=== PATIENT | female | born 1960 | race Caucasian/White ===

== ENCOUNTER → 2020-04-26 09:36 | Outpatient (BNVA) | payer OTHER, SELFPAY | PROVIDERS: PCP Internal Medicine; Referring Provider Internal Medicine; Visit Provider Internal Medicine Endocrinology, Diabetes & Metabolism | DX: Z76.89 Persons encountering health services in other specified circumstances (principal) ==

== ENCOUNTER 2020-04-27 16:15 | Outpatient (REF) | payer OTHER, SELFPAY ==
--- NOTE | 2020-04-27 16:09 | MM_ITS ---
EXAMINATION: MM SCREENING DIGITAL BREAST TOMOSYNTHESIS, BILATERAL CLINICAL INFORMATION: Screening. Asymptomatic. The lifetime risk of breast cancer based on the Tyrer-Cuzick Model is 8%. COMPARISON: Mammography: 03/18/2019, 03/06/2018, 02/07/2017 TECHNIQUE: Digital breast tomosynthesis is performed in both the craniocaudal and mediolateral oblique views along with computer-aided detection (CAD). Synthesized 2D images are generated from the tomosynthesis. FINDINGS: There are scattered areas of fibroglandular density (ACR BI-RADS breast composition Category b). There are no significant masses, abnormal calcifications, or other abnormalities. No significant change from prior study. The axilla and skin contours are unremarkable. MM/MM tomosynthesis screening BI IMPRESSION: No mammographic evidence of malignancy. ASSESSMENT: BI-RADS 1: Negative RECOMMENDATION: Routine annual mammography screening. This patient's information was entered into a reminder system with a target due date for their next mammogram.
== END 2020-04-27 16:16 ==
LOC: HO.MAMMO 16:15
PROVIDERS: PCP Internal Medicine; Visit Provider Internal Medicine
DX: Z12.31 Encounter for screening mammogram for malignant neoplasm of breast (principal)
CPT/HCPCS: 77063; 77067

== ENCOUNTER 2020-05-25 07:39 | Outpatient (REF) | payer OTHER, SELFPAY ==
[2020-05-25 08:48] LABS: Alanine Aminotransferase 22 U/L (0-31); Albumin Level 4.2 g/dL (3.5-5.0); Alkaline Phosphatase 55 U/L (39-117); Anion Gap 11 (12-20); Aspartate Amino Transferase 22 U/L (5-31); Bilirubin Total 0.5 mg/dL (0.0-1.0); Blood Urea Nitrogen 13 mg/dL (9-16); Calcium 9.4 mg/dL (8.4-10.2); Carbon Dioxide 29 mmol/L (22-29); Chloride 106 mmol/L (96-108); Cholesterol 203 mg/dL; Estimated Glomerular Filt Rate > 60; Glucose Fasting 99 mg/dL (60-99); HDL Cholesterol 62 mg/dL; LDL Cholesterol Calculated 119 mg/dl; Potassium 4.2 mmol/L (3.3-5.1); Sodium 142 mmol/L (135-145); Total Protein 6.7 g/dL (6.5-8.0); Triglycerides 112 mg/dL
[2020-05-25 09:10] LABS: TSH reflex Free T4 1.97 uIU/mL (0.32-4.0)
[2020-05-29 15:57] LABS: Vitamin D 25-OH, D2 <4 ng/mL; Vitamin D 25-OH, D3 41 ng/mL; Vitamin D 25-OH, Total 41 ng/mL (30-100)
== END 2020-05-25 07:40 | disposition home or self-care (01) ==
LOC: HO.LAB 07:39
PROVIDERS: PCP Internal Medicine; Visit Provider Internal Medicine
DX: I10 Essential (primary) hypertension (principal); E78.5 Hyperlipidemia, unspecified; E55.9 Vitamin D deficiency, unspecified; Z83.49 Family history of other endocrine, nutritional and metabolic diseases
CPT/HCPCS: 36415; 80053; 80061; 82306; 84443

== ENCOUNTER → 2020-05-31 13:48 | Outpatient (BNVA) | payer OTHER, SELFPAY | PROVIDERS: PCP Internal Medicine; Visit Provider Internal Medicine | DX: M81.0 Age-related osteoporosis without current pathological fracture (principal) | CPT/HCPCS: 96402 ==

== ENCOUNTER 2020-06-14 08:12 | Outpatient (REF) | payer OTHER, SELFPAY ==
[2020-06-14 09:48] LABS: Free T4 (Free Thyroxine) 1.01 ng/dL (0.71-1.85); Thyroid Stimulating Hormone 1.56 uIU/mL (0.32-4.0); Vitamin D 25-OH Total 42.6 ng/mL (>30)
[2020-06-20 15:32] LABS: N-Telopeptide 19 (see note); NTXCreaRU 250 mg/dL (20-275)
== END 2020-06-14 08:13 | disposition home or self-care (01) ==
LOC: HO.LAB 08:12
PROVIDERS: PCP Internal Medicine; Visit Provider Internal Medicine Endocrinology, Diabetes & Metabolism
DX: M81.0 Age-related osteoporosis without current pathological fracture (principal)
CPT/HCPCS: 36415; 82306; 82523; 84439; 84443

== ENCOUNTER 2020-11-01 11:36 | Outpatient (REF) | payer OTHER, SELFPAY ==
[2020-11-01 13:36] LABS: Albumin Level 4.7 g/dL (3.5-5.0); Calcium 10.2 mg/dL (8.4-10.2)
[2020-11-01 14:03] LABS: Vitamin D 25-OH Total 50.1 ng/mL (>30)
[2020-11-07 21:51] LABS: N-Telopeptide 21 (see note); NTXCreaRU 24 mg/dL (20-275)
== END 2020-11-01 11:37 | disposition home or self-care (01) ==
LOC: HO.10HDL 11:36
PROVIDERS: PCP Internal Medicine; Visit Provider Internal Medicine Endocrinology, Diabetes & Metabolism
DX: M81.0 Age-related osteoporosis without current pathological fracture (principal); E55.9 Vitamin D deficiency, unspecified
CPT/HCPCS: 36415; 82040; 82306; 82310; 82523; 99212

== ENCOUNTER → 2020-11-29 11:03 | Outpatient (BNVA) | payer OTHER, SELFPAY | PROVIDERS: PCP Internal Medicine; Visit Provider Internal Medicine | DX: M81.0 Age-related osteoporosis without current pathological fracture (principal) | CPT/HCPCS: 96372 ==

== ENCOUNTER 2020-12-13 11:32 | Outpatient (REF) | payer OTHER, SELFPAY ==
[2020-12-13 14:27] LABS: Estimated Glomerular Filt Rate > 60
[2020-12-14 16:02] LABS: Calcium (PTHI) 10.1 mg/dL (8.6-10.4); PTHI 22 pg/mL (14-64)
== END 2020-12-13 11:33 | disposition home or self-care (01) ==
LOC: HO.10HDL 11:32
PROVIDERS: Visit Provider Internal Medicine
DX: M81.0 Age-related osteoporosis without current pathological fracture (principal)
CPT/HCPCS: 36415; 82565; 83970

== ENCOUNTER 2021-02-14 09:39 | Outpatient (REF) | payer OTHER, SELFPAY ==
[2021-02-14 09:49] LABS: MANUAL DIFF FLAG NO
[2021-02-14 10:06] LABS: Basophils Percent Auto 0.4 % (0-2); Eosinophils Absolute Auto 0.2 X10*3/uL (0.0-0.4); Eosinophils Percent Auto 2.8 % (0-4); Hematocrit 40.9 % (37.0-47.0); Hemoglobin 13.1 g/dl (12.0-16.0); Imm Gran Abs Auto 0.02 X10*3/uL (0.00-0.03); Imm Gran Pct Auto 0.4 % (0.0-0.4); Lymphocytes Absolute Auto 2.2 X10*3/uL (1.2-4.9); Lymphocytes Percent Auto 41.2 % (20-40); Mean Corpuscular Hemoglobin 30.1 pg (27.0-33.0); Mean Platelet Volume 9.1 fL (9.4-12.3); Monocytes Absolute Auto 0.5 X10*3/uL (0.1-1.2); Monocytes Percent Auto 8.5 % (2-11); Neutrophils Absolute Auto 2.47 x10*3/uL (2.0-8.3); Neutrophils Percent Auto 46.7 % (45-73); Platelet Count 254 X10*3/uL (160-400); Red Blood Count 4.35 X10*6/uL (4.20-5.50); Red Cell Distribution Width 13.2 % (11.0-16.0); White Blood Count 5.3 X10*3/uL (4.8-10.8)
[2021-02-14 11:03] LABS: Alanine Aminotransferase 23 U/L (0-31); Albumin Level 4.6 g/dL (3.5-5.0); Alkaline Phosphatase 51 U/L (39-117); Anion Gap 10 (12-20); Aspartate Amino Transferase 22 U/L (5-31); Bilirubin Total 0.5 mg/dL (0.0-1.0); Blood Urea Nitrogen 10 mg/dL (9-16); Calcium 9.9 mg/dL (8.4-10.2); Carbon Dioxide 32 mmol/L (22-29); Chloride 102 mmol/L (96-108); Cholesterol 197 mg/dL; Estimated Glomerular Filt Rate > 60; Glucose Fasting 102 mg/dL (60-99); HDL Cholesterol 64 mg/dL; LDL Cholesterol Calculated 103 mg/dl; Potassium 4.7 mmol/L (3.3-5.1); Sodium 139 mmol/L (135-145); Total Protein 7.4 g/dL (6.5-8.0); Triglycerides 154 mg/dL
[2021-02-21 15:37] LABS: Vitamin D 25-OH, D2 <4 ng/mL; Vitamin D 25-OH, D3 51 ng/mL; Vitamin D 25-OH, Total 51 ng/mL (30-100)
== END 2021-02-14 09:40 | disposition home or self-care (01) ==
LOC: HO.LAB 09:39
PROVIDERS: PCP Internal Medicine; Visit Provider Internal Medicine
DX: E55.9 Vitamin D deficiency, unspecified (principal); E78.5 Hyperlipidemia, unspecified; I10 Essential (primary) hypertension; D64.9 Anemia, unspecified
CPT/HCPCS: 36415; 80053; 80061; 82306; 85025

== ENCOUNTER 2021-05-01 08:51 | Outpatient (REF) | payer OTHER, SELFPAY ==
--- NOTE | ~2021-05-01 | MM_ITS ---
EXAMINATION: MM SCREENING DIGITAL BREAST TOMOSYNTHESIS, BILATERAL CLINICAL INFORMATION: Screening. Asymptomatic. The lifetime risk of breast cancer based on the Tyrer-Cuzick Model is 4%. COMPARISON: Mammography: 04/27/2020, 03/18/2019, 03/06/2018 TECHNIQUE: Digital breast tomosynthesis is performed in both the craniocaudal and mediolateral oblique views along with computer-aided detection (CAD). Synthesized 2D images are generated from the tomosynthesis. Additional left MLO view is provided. FINDINGS: There are scattered areas of fibroglandular density (ACR BI-RADS breast composition Category b). There are no significant masses, abnormal calcifications, or other abnormalities. MM/MM tomosynthesis screening BI IMPRESSION: No mammographic evidence of malignancy. ASSESSMENT: BI-RADS 1: Negative RECOMMENDATION: Routine annual mammography screening. This patient's information was entered into a reminder system with a target due date for their next mammogram.
== END 2021-05-01 08:52 | disposition home or self-care (01) ==
LOC: HO.MAMMO 08:51
PROVIDERS: PCP Internal Medicine; Visit Provider Internal Medicine
DX: Z12.31 Encounter for screening mammogram for malignant neoplasm of breast (principal)
CPT/HCPCS: 77063; 77067

== ENCOUNTER 2021-05-25 09:46 | Outpatient (REF) | payer OTHER, SELFPAY ==
[2021-05-26 18:32] LABS: CT PCR NOT DETECTED (Not Detect.); NG PCR NOT DETECTED (Not Detect.)
[2021-05-30 09:32] LABS: HPV mRNA E6/E7 rflx Not Detected (Not Detected)
== END 2021-05-25 09:47 | disposition home or self-care (01) ==
LOC: HO.LAB 09:46
PROVIDERS: PCP Internal Medicine; Visit Provider Advanced Practice Midwife
DX: Z01.419 Encounter for gynecological examination (general) (routine) without abnormal findings (principal); Z20.2 Contact with and (suspected) exposure to infections with a predominantly sexual mode of transmission
CPT/HCPCS: 87491; 87591; 87624; 88142

== ENCOUNTER → 2021-06-13 08:44 | Outpatient (BNVA) | payer OTHER, SELFPAY | PROVIDERS: PCP Internal Medicine; Visit Provider Internal Medicine Endocrinology, Diabetes & Metabolism | DX: M81.0 Age-related osteoporosis without current pathological fracture (principal); E55.9 Vitamin D deficiency, unspecified; I10 Essential (primary) hypertension; E78.5 Hyperlipidemia, unspecified; Z79.82 Long term (current) use of aspirin; Z79.899 Other long term (current) drug therapy | CPT/HCPCS: 99212 ==

== ENCOUNTER → 2021-12-26 10:38 | Outpatient (BNVA) | payer OTHER, SELFPAY | PROVIDERS: PCP Internal Medicine; Visit Provider Internal Medicine Endocrinology, Diabetes & Metabolism | DX: M81.0 Age-related osteoporosis without current pathological fracture (principal); Z79.899 Other long term (current) drug therapy | CPT/HCPCS: 99212 ==

== ENCOUNTER 2022-02-25 07:35 | Outpatient (REF) | payer OTHER, SELFPAY ==
[2022-02-25 09:38] LABS: Alanine Aminotransferase 30 U/L (0-31); Albumin Level 4.5 g/dL (3.5-5.0); Alkaline Phosphatase 98 U/L (39-117); Anion Gap 14 (12-20); Aspartate Amino Transferase 23 U/L (5-31); Bilirubin Total 0.3 mg/dL (0.0-1.0); Blood Urea Nitrogen 11 mg/dL (9-16); Calcium 9.6 mg/dL (8.4-10.2); Carbon Dioxide 26 mmol/L (22-29); Chloride 104 mmol/L (96-108); Cholesterol 167 mg/dL; Estimated Glomerular Filt Rate > 60; Glucose Fasting 104 mg/dL (60-99); HDL Cholesterol 56 mg/dL; LDL Cholesterol Calculated 89 mg/dl; Potassium 4.2 mmol/L (3.3-5.1); Sodium 140 mmol/L (135-145); Total Protein 7.2 g/dL (6.5-8.0); Triglycerides 110 mg/dL; Vitamin D 25-OH Total 53.3 ng/mL (>30)
[2022-03-03 13:52] LABS: N-Telopeptide 39 (see note); NTXCreaRU 369 mg/dL (20-275)
== END 2022-02-25 07:36 | disposition home or self-care (01) ==
LOC: HO.LAB 07:35
PROVIDERS: Absent Provider Internal Medicine Endocrinology, Diabetes & Metabolism; PCP Internal Medicine; Visit Provider Internal Medicine
DX: M81.0 Age-related osteoporosis without current pathological fracture (principal); E55.9 Vitamin D deficiency, unspecified; E78.5 Hyperlipidemia, unspecified; I10 Essential (primary) hypertension
CPT/HCPCS: 36415; 80053; 80061; 82306; 82523

== ENCOUNTER 2022-05-07 12:37 | Outpatient (REF) | payer OTHER, SELFPAY ==
--- NOTE | ~2022-05-07 | MM_ITS ---
EXAMINATION: MM SCREENING DIGITAL BREAST TOMOSYNTHESIS, BILATERAL CLINICAL INFORMATION: Screening. Asymptomatic. The lifetime risk of breast cancer based on the Tyrer-Cuzick Model is 5.6%. COMPARISON: Mammography: May 01, 2021 and studies dating back to January 12, 2016 TECHNIQUE: Digital breast tomosynthesis is performed in both the craniocaudal and mediolateral oblique views along with computer-aided detection (CAD). Synthesized 2D images are generated from the tomosynthesis. FINDINGS: There are scattered areas of fibroglandular density (ACR BI-RADS breast composition Category b). There are no significant masses, abnormal calcifications, or other abnormalities. MM/MM tomosynthesis screening BI IMPRESSION: No significant changes from prior exam. ASSESSMENT: BI-RADS 1: Negative RECOMMENDATION: Routine annual mammography screening. This patient's information was entered into a reminder system with a target due date for their next mammogram.
== END 2022-05-07 12:38 | disposition home or self-care (01) ==
LOC: HO.MAMMO 12:37
PROVIDERS: Visit Provider Internal Medicine
DX: Z12.31 Encounter for screening mammogram for malignant neoplasm of breast (principal)
CPT/HCPCS: 77063; 77067

== ENCOUNTER 2022-06-04 10:02 | Outpatient (REF) | payer OTHER, SELFPAY ==
[2022-06-04 18:21] LABS: CT PCR NOT DETECTED (Not Detect.); NG PCR NOT DETECTED (Not Detect.)
[2022-06-05 06:37] LABS: Syphilis Screen Nonreactive (Nonreactive)
[2022-06-05 07:42] LABS: HIV Num 1 7.67 S/CO (0.00-0.99); Hepatitis B Core Antibody Nonreactive (Nonreactive); ~HepC Num1 0.12 S/CO (0.00-0.79); ~Hepatitis C Antibody Nonreactive (Nonreactive)
[2022-06-05 13:45] LABS: HIV Num 2 1.07 S/CO
[2022-06-05 13:46] LABS: HIV AB/AG Reactive (Nonreactive)
[2022-06-17 11:44] LABS: HIV 1 Antibody NEGATIVE; HIV 2 Antibody NEGATIVE
== END 2022-06-04 10:03 | disposition home or self-care (01) ==
LOC: HO.LNP 10:02
PROVIDERS: Visit Provider Advanced Practice Midwife
DX: Z01.419 Encounter for gynecological examination (general) (routine) without abnormal findings (principal); Z20.2 Contact with and (suspected) exposure to infections with a predominantly sexual mode of transmission
CPT/HCPCS: 0353U; 86701; 86702; 86704; 86780; 86803; 87389

== ENCOUNTER 2022-06-04 10:34 | Outpatient (REF) | payer OTHER, SELFPAY | END 2022-06-04 10:35 | disposition home or self-care (01) | LOC: HO.LAB 10:34 | PROVIDERS: PCP Internal Medicine; Visit Provider Advanced Practice Midwife | DX: Z13.89 Encounter for screening for other disorder (principal) ==

== ENCOUNTER → 2022-06-13 14:28 | Outpatient (REF) | payer OTHER, SELFPAY ==
--- NOTE | 2022-06-13 14:36 | ECG_ITS ---
Test Reason : PREOP Blood Pressure : / mmHG Vent. Rate : 092 BPM Atrial Rate : 092 BPM P-R Int : 148 ms QRS Dur : 084 ms QT Int : 352 ms P-R-T Axes : 059 042 062 degrees QTc Int : 435 ms Normal sinus rhythm Normal ECG No previous ECGs available Referred By: Kristie Pepe Electronically Signed By:MALIKA CAI MD
[2022-06-13 15:37] LABS: Hematocrit 41.3 % (37.0-47.0); Hemoglobin 12.9 g/dl (12.0-16.0); Mean Corpuscular HGB Conc 31.2 g/dl (31.0-35.0); Mean Corpuscular Hemoglobin 28.8 pg (27.0-33.0); Mean Corpuscular Volume 92.2 fL (80.0-98.0); Mean Platelet Volume 9.7 fL (9.4-12.3); Platelet Count 285 X10*3/uL (160-400); Red Blood Count 4.48 X10*6/uL (4.20-5.50); Red Cell Distribution Width 13.2 % (11.0-16.0); White Blood Count 9.4 X10*3/uL (4.8-10.8)
[2022-06-13 15:46] LABS: INTERNATIONAL NORM RATIO 0.9 (0.9-1.1); Prothrombin Time 10.8 SEC (10.0-13.1)
[2022-06-13 16:09] LABS: Anion Gap 14 (12-20); Blood Urea Nitrogen 16 mg/dL (9-16); Calcium 9.8 mg/dL (8.4-10.2); Carbon Dioxide 28 mmol/L (22-29); Chloride 102 mmol/L (96-108); Estimated Glomerular Filt Rate > 60; Glucose Random 98 mg/dL (60-115); Potassium 4.1 mmol/L (3.3-5.1); Sodium 140 mmol/L (135-145)
[2022-06-13 16:26] LABS: TSH reflex Free T4 0.87 uIU/mL (0.32-4.0)
== END ==
LOC: HO.CARD 14:28
PROVIDERS: PCP Internal Medicine; Visit Provider Nurse Practitioner Family
DX: Z01.818 Encounter for other preprocedural examination (principal)
CPT/HCPCS: 36415; 80048; 84443; 85027; 85610; 93005

== ENCOUNTER → 2022-06-18 10:19 | Outpatient (BNVA) | payer OTHER, SELFPAY | PROVIDERS: PCP Internal Medicine; Visit Provider Advanced Practice Midwife | DX: Z71.2 Person consulting for explanation of examination or test findings (principal) | CPT/HCPCS: 99212 ==

== ENCOUNTER 2022-06-24 08:54 | Day surgery (SDC) | payer OTHER, SELFPAY ==
[2022-06-19 11:07] VITALS: BMI 32.4
--- NOTE | 2022-06-21 09:27 | MHC.SHP ---
Pre-Procedural Eval Section A Date of Service: 06/21/22 The patient is an INPATIENT: No Changes since office visit: No Cold of Flu in the past 2 weeks, No New Medical Problems, No Changes in Medication and No Patient answered all questions The History & Physical has been completed within 30 days and I have reviewed it.: Yes Section B Chief Complaint: Age-related nuclear cataract, right eye Allergies: Allergies Allergy/AdvReac Type Severity Reaction Status Date / Time No Known Allergies Allergy Verified 06/19/22 11:06 Plan Diagnosis/Plan: Unchanged I have reviewed the history and physical and performed a pertinent physical examination on my patient. No changes have occurred unless specified. Time Spent With Patient Time: Total time managing care of this patient today ____ minutes.
--- NOTE | 2022-06-21 10:34 | P.CONAN_ITS ---
Documented by User: Suly Gaviria NP 06/21/22 10:37 HPI - Anesthesia Eval Consult details Narrative: 62yo F for Right Cataract Extraction IOL Insertion PCP cleared No previous cataract on record [facility] Active Problems Active Problems: All Active Problems (Updated 06/13/22 @ 14:27 by GIN Holt) Obesity (BMI 30.0-34.9) (Acute) Cataract (Acute) Preoperative clearance (Acute) Physical exam (Acute) Osteoporosis (Acute) Mild asthma (Acute) Family history of thyroid disease (Acute) Left wrist pain (Acute) Hypovitaminosis D (Acute) Dyslipidemia (Acute) Essential hypertension (Acute) Past Medical History Medical History Dyslipidemia Essential hypertension Family history of thyroid disease Hypovitaminosis D Left wrist pain Mild asthma Osteoporosis Family History Family History Father Essential hypertension Mother Essential hypertension Maternal Aunt Breast cancer Surgical History Surgical History History of carpal tunnel release History of removal of cyst History of tubal ligation Meningioma Social History Social History Housing: Apartment Are you a primary managed care director to a significant other at home: No Do you presently have visiting nurse or other home services: No Alcohol intake: former Patient Tobacco Use Status: Never used Tobacco e-Cigarette/Vaping Use: Never Used Second Hand Smoke Exposure: No Use of substances other than those prescribed or required for medical reasons: No Have you been hit, kicked, punched, or otherwise hurt by someone within the past year? If so, by whom?: No Are you DNR?: No Advance Directives: No Advance Directives Information Provided: Yes Advance Directives on File: No Nutrition Risks: No Nutritional Risk service: No Current occupational status: unemployed Cognitive needs: No Hearing needs: No Vision needs: No Meds Allergies Allergy/AdvReac Type Severity Reaction Status Date / Time No Known Allergies Allergy Verified 06/19/22 11:06 Home Medications Medication Instructions Recorded Confirmed Last Taken Type sumatriptan succinate 50 mg tablet 0 mg PO 12/26/21 06/13/22 Unknown History Exam Exam Date and Time: June 21, 2022 1034 Height,Weight and Vital Signs: Height 5 ft Weight 75.296 kg Assessment and Plan Assessment Anesthesia Assessment: Chart Reviewed Documented by User: Leoncio Ojeda MD 06/24/22 12:38 HPI - Anesthesia Eval Consult details Narrative: 62yo F for Right Cataract Extraction IOL Insertion optimized per PCP No previous cataract on record PMFSH Past Medical History Medical History Dyslipidemia Essential hypertension Family history of thyroid disease Hypovitaminosis D Left wrist pain Mild asthma Osteoporosis Functional capacity: independent ambulation Family History Family History Father Essential hypertension Mother Essential hypertension Maternal Aunt Breast cancer Family history of problems with anesthesia: No Surgical History Surgical History History of carpal tunnel release History of removal of cyst History of tubal ligation Meningioma History of Problems with Anesthesia: No Social History Social History Housing: Apartment Are you a primary managed care director to a significant other at home: No Do you presently have visiting nurse or other home services: No Alcohol intake: former Patient Tobacco Use Status: Never used Tobacco e-Cigarette/Vaping Use: Never Used Second Hand Smoke Exposure: No Use of substances other than those prescribed or required for medical reasons: No Have you been hit, kicked, punched, or otherwise hurt by someone within the past year? If so, by whom?: No Are you DNR?: No Advance Directives: No Advance Directives Information Provided: Yes Advance Directives on File: No Nutrition Risks: No Nutritional Risk service: No Current occupational status: unemployed Cognitive needs: No Hearing needs: No Vision needs: No Meds Allergies Allergy/AdvReac Type Severity Reaction Status Date / Time No Known Allergies Allergy Verified 06/19/22 11:06 Home Medications Medication Instructions Recorded Confirmed Last Taken Type sumatriptan succinate 50 mg tablet 0 mg PO 12/26/21 06/13/22 Unknown History Exam Airway Mallampati Class: IV TM Dist: >3cm Neck ROM: Full Loose/Missing/Broken Teeth: Yes Heart: S1,S2 Lungs: b/l breath sounds Assessment and Plan Assessment Anesthesia Assessment: Anesthesia Plan Discussed Final Anesthetic Review Family History of Problems with Anesthesia: No History of Problems with Anesthesia: No NPO: Yes ASA Class: III Final Preanesthetic Review: Meds/Allgs Chart Reviewed, Consent Obtained/Reviewed and Anes Risks/Benef Reviewed Patient Risk: Intermediate Procedure Risk: Intermediate Anesthetic Plan Anesthetic Plan: MAC: Disposition: Standard PACU
[2022-06-24 10:36] VITALS: BP 112/69; PULSE 76; RESP 16; TEMP 36.7; O2SAT 98
[2022-06-24] MEDS: Tetracaine HCl/PF 0.5% Oph Sol 4 ML DROPS 1 DROP EYE-RIGHT (10:54)
[2022-06-24] MEDS: Lactated Ringers 500 ML 50 ML IV (10:54)
[2022-06-24] MEDS: Cyclopentolate 1 % Ophth Sol 2 ML DRPBTL 1 DROP EYE-RIGHT ×3 (10:55→11:03)
[2022-06-24] MEDS: Tropicamide 1 % Ophth Sol 3 ML BTL 1 DROP EYE-RIGHT ×3 (10:56→11:04)
[2022-06-24] MEDS: Ketorolac Tromethamine 0.5% Op 5 ML DROPS 1 DROP EYE-RIGHT ×3 (10:57→11:05)
[2022-06-24] MEDS: Phenylephrine HCL 2.5% Oph SoL 2 ML BOTTLE 1 DROP EYE-RIGHT ×3 (10:57→11:05)
--- NOTE | 2022-06-24 11:41 | HO.PNOPHT ---
Ophthalmology Procedure Procedure Date of Service: 06/24/22 Ophthalmology Viscoelastic: Rocky Pacheco Dual Pack Pro Ophthalmology Lenses: TECNIS [id number] (27.5) Procedure Notes: PREOPERATIVE DIAGNOSIS: Decreased visual acuity right eye secondary to cataract POSTOPERATIVE DIAGNOSIS: Same PROCEDURE: Right cataract extraction with intraocular lens insertion SURGEON: Jose Alejandro Anderson M.D. ANESTHESIA: Topical/MAC ESTIMATED BLOOD LOSS: None COMPLICATIONS: None After obtaining informed consent, the patient was brought to the operating room suite and placed in the supine position. After adequate sedation per anesthesia, topical drops of Tetracaine were given to the right eye. The eye was then prepped and draped in the usual sterile fashion. The operating room microscope was then positioned over the operative eye and a lid speculum placed. A paracentesis was created. Viscoelastic was then instilled into the anterior chamber. An air bubble was introduced into the anterior chamber followed by instillation ofblue dye A three plane incision was then created temporally, utilizing a 2.85 mm keratome. Capsulotomy forceps were then utilized to create a circular tear capsulotomy. Hydrodissection and hydrodelineation were carried out until adequate mobilization of the nucleus occurred. Phacoemulsification was then utilized to remove the dense central nucleus followed by removal of the cortical material utilizing the automated aspiration irrigation unit. Viscoelastic was instilled into the posterior capsular bag followed by placement of a posterior chamber intraocular lens without difficulty. The residual Viscoelastic was then removed utilizing the automated IA machine. The wound was checked and found to be watertight. The patient tolerated the procedure well and the lid speculum was removed. Intracameral injection of Vigamox 0.1 mL followed by a subtenon injection of Kenalog-40 0.2 mL were administered. The patient will be seen in the a.m.
[2022-06-24 12:17] VITALS: BP 104/62; PULSE 77; RESP 18; TEMP 36.4; O2SAT 97
== END 2022-06-24 12:20 | disposition home or self-care (01) ==
PROVIDERS: PCP Internal Medicine; Visit Provider Ophthalmology
PROC: (CPT 66985; principal; 2022-06-24 11:50)
DX: H25.11 Age-related nuclear cataract, right eye (principal); H54.7 Unspecified visual loss; J45.909 Unspecified asthma, uncomplicated; E78.00 Pure hypercholesterolemia, unspecified; I10 Essential (primary) hypertension; R51.9 Headache, unspecified; Z86.011 Personal history of benign neoplasm of the brain; Z79.82 Long term (current) use of aspirin; Z79.51 Long term (current) use of inhaled steroids; Z79.899 Other long term (current) drug therapy
CPT/HCPCS: 66984; J2250; J3010; J3301; V2632

== ENCOUNTER 2022-07-08 06:12 | Day surgery (SDC) | payer OTHER, SELFPAY ==
[2022-06-19 11:10] VITALS: BMI 32.4
--- NOTE | 2022-07-04 14:37 | HO.PNOPHT ---
Ophthalmology Procedure Procedure Date of Service: 07/04/22 Ophthalmology Viscoelastic: Healon Duet Dual Pack Pro
--- NOTE | 2022-07-04 14:38 | MHC.SHP ---
Pre-Procedural Eval Section A Date of Service: 07/04/22 The patient is an INPATIENT: No Changes since office visit: No Cold of Flu in the past 2 weeks, No New Medical Problems, No Changes in Medication and No Patient answered all questions The History & Physical has been completed within 30 days and I have reviewed it.: Yes Section B Chief Complaint: Age-related nuclear cataract, left eye Allergies: Allergies Allergy/AdvReac Type Severity Reaction Status Date / Time No Known Allergies Allergy Verified 06/19/22 11:06 Plan Diagnosis/Plan: Unchanged I have reviewed the history and physical and performed a pertinent physical examination on my patient. No changes have occurred unless specified. Time Spent With Patient Time: Total time managing care of this patient today ____ minutes.
[2022-07-08 06:27] VITALS: BP 118/78; PULSE 78; RESP 18; TEMP 36.2; O2SAT 97
[2022-07-08 06:30] VITALS: BMI 31.4
[2022-07-08] MEDS: Tropicamide 1 % Ophth Sol 3 ML BTL 1 DROP EYE-LEFT ×3 (06:41→06:45)
[2022-07-08] MEDS: Tetracaine HCl/PF 0.5% Oph Sol 4 ML DROPS 1 DROP EYE-LEFT (06:41)
[2022-07-08] MEDS: Phenylephrine HCL 2.5% Oph SoL 2 ML BOTTLE 1 DROP EYE-LEFT ×3 (06:41→06:45)
[2022-07-08] MEDS: Ketorolac Tromethamine 0.5% Op 5 ML DROPS 1 DROP EYE-LEFT ×3 (06:41→06:45)
[2022-07-08] MEDS: Cyclopentolate 1 % Ophth Sol 2 ML DRPBTL 1 DROP EYE-LEFT ×3 (06:42→06:45)
--- NOTE | 2022-07-08 07:29 | HO.PNOPHT ---
Ophthalmology Procedure Procedure Date of Service: 07/08/22 Ophthalmology Viscoelastic: Healwyatt Duet Dual Pack Pro Ophthalmology Lenses: TECCARLOS [id number] (28) Procedure Notes: PREOPERATIVE DIAGNOSIS: Decreased visual acuity left eye secondary to cataract POSTOPERATIVE DIAGNOSIS: Same PROCEDURE: Left cataract extraction with intraocular lens insertion SURGEON: Jose Alejandro Anderson M.D. ANESTHESIA: Topical/MAC ESTIMATED BLOOD LOSS: None COMPLICATIONS: None After obtaining informed consent, the patient was brought to the operation room suite and placed in the supine position. After adequate sedation per anesthesia, topical drops of Tetracaine were given to the left eye. The eye was then prepped and draped in the usual sterile fashion. The operating room microscope was then positioned over the operative eye and a lid speculum placed. A paracentesis was created. Viscoelastic was then instilled into the anterior chamber. A three plane incision was then created temporally, utilizing a 2.85 mm keratome. Capsulotomy forceps were then utilized to create a circular tear capsulotomy. Hydrodissection and hydrodelineation were carried out until adequate mobilization of the nucleus occurred. Phacoemulsification was then utilized to remove the dense central nucleus followed by removal of the cortical material utilizing the automated aspiration irrigation unit. Viscoat elastic was instilled into the posterior capsular bag followed by placement of a posterior chamber intraocular lens without difficulty. The residual Viscoat elastic was then removed utilizing the automated IA machine. The wound was check and found to be watertight. The patient tolerated the procedure well and the lid speculum was removed. Intracameral injection of Vigamox 0.1 mL followed by a subtenon injection of Kenalog-40 0.2 mL were administered. The patient will be seen in the a.m.
[2022-07-08 08:07] VITALS: BP 118/76; PULSE 71; RESP 16; TEMP 36.4; O2SAT 98
== END 2022-07-08 08:11 | disposition home or self-care (01) ==
PROVIDERS: PCP Internal Medicine; Visit Provider Ophthalmology
PROC: (CPT 66985; principal; 2022-07-08 07:30)
DX: H25.12 Age-related nuclear cataract, left eye (principal); H52.4 Presbyopia; H40.031 Anatomical narrow angle, right eye; H11.153 Pinguecula, bilateral; I10 Essential (primary) hypertension; J45.909 Unspecified asthma, uncomplicated; E78.00 Pure hypercholesterolemia, unspecified; Z86.011 Personal history of benign neoplasm of the brain; Z98.890 Other specified postprocedural states; Z79.82 Long term (current) use of aspirin; Z79.51 Long term (current) use of inhaled steroids; Z79.899 Other long term (current) drug therapy
CPT/HCPCS: 66984; J2250; J3010; J3301; V2632

== ENCOUNTER 2022-07-22 14:27 | Outpatient (REF) | payer OTHER, SELFPAY ==
[2022-07-22 17:39] LABS: Creatinine Urine 140.75 mg/dL
== END 2022-07-22 14:28 | disposition home or self-care (01) ==
LOC: HO.LAB 14:27
PROVIDERS: PCP Internal Medicine; Visit Provider Internal Medicine
DX: Z13.89 Encounter for screening for other disorder (principal)

== ENCOUNTER 2022-07-25 14:21 | Emergency (ER) | payer OTHER, SELFPAY ==
--- NOTE | 2022-07-25 14:31 | ED.ABDPAIN ---
HPI - Abdominal Pain General Chief Complaint: General Medical <Essie Price NP - Last Filed: 07/25/22 14:36> Stated Complaint: kidney issues <Essie Price NP - Last Filed: 07/25/22 14:36> Time Seen by Provider: 07/25/22 15:48 <Essie Price NP - Last Filed: 07/25/22 14:36> Source: patient and family <Sadi Phelan MD - Last Filed: 07/25/22 17:01> Mode of arrival: ambulatory <Sadi Phelan MD - Last Filed: 07/25/22 17:01> Limitations: no limitations <Sadi Phelan MD - Last Filed: 07/25/22 17:01> History of Present Illness HPI narrative: 8-year-old female presents with right-sided back pain. Symptoms started approximately a week to 1-1/2 weeks ago. Patient's symptoms are severe. Occasionally they radiate to the right knee. There was no loss of bowel or bladder control. There was no fall or injury. They are worse with twisting and bending. She has been unable to clean the house since her symptoms started. She does have some urinary frequency and urgency but no dysuria or hematuria. She denies any vaginal discharge or bleeding. Additionally daughters have been concerned about some psychological findings. Patient appears to have some memory related issues with constant repetitive talk. She appears to be more tearful and anxious and shaky. <Sadi Phelan MD - Last Filed: 07/25/22 17:01> Related Data Home Medications: Home Medications Medication Instructions Recorded Confirmed sumatriptan succinate 50 mg tablet 1 PO NEEDED migraine\ 12/26/21 07/18/22 Previous Rx's Medication Instructions Recorded nebulizers (AeroEclipse II #1 ea 09/05/20 Nebulizer) calcium citrate 200 mg (950 mg) 400 mg PO BID 30 days #120 tabs 11/08/21 tablet blood pressure monitor #1 ea 01/06/22 aspirin 81 mg tablet,delayed 81 mg PO DAILY 90 days #90 tabs 01/08/22 release atorvastatin 40 mg tablet 40 mg PO BEDTIME 90 days #90 tabs 01/08/22 alendronate 70 mg tablet 70 mg PO QWEEK #4 tabs 01/30/22 albuterol sulfate 90 mcg/actuation 2 puff inhalation Q4-6H PRN 02/27/22 aerosol inhaler bronchospasm 30 days #6.7 grams omega-3 fatty acids-fish oil 340 1 cap PO BID 90 days #180 caps 03/12/22 mg-1,000 mg capsule lisinopril 10 1 tab PO DAILY #30 tabs 04/08/22 mg-hydrochlorothiazide 12.5 mg tablet albuterol sulfate 0.63 mg/3 mL 0.63 mg (3 mL) inhalation Q4-6H 05/28/22 solution for nebulization PRN bronchospasm 30 days #75 mL cholecalciferol (vitamin D3) 25 25 mcg PO DAILY #90 caps 06/17/22 mcg (1,000 unit) capsule (Vitamin D3) fluticasone propionate 50 2 spray intranasal DAILY PRN Dry 07/16/22 mcg/actuation nasal Nasal Passages 30 days #16 grams spray,suspension loratadine 10 mg tablet (Allergy 10 mg PO DAILY PRN allergy 07/16/22 Relief (loratadine)) symptoms 90 days #90 tabs <Essie Price NP - Last Filed: 07/25/22 14:36> Allergies/Adverse Reactions: Allergies Allergy/AdvReac Type Severity Reaction Status Date / Time No Known Allergies Allergy Verified 07/25/22 14:31 <Essie Price NP - Last Filed: 07/25/22 14:36> [facility] Past Medical History Medical History: Medical History Dyslipidemia Essential hypertension Family history of thyroid disease Hypovitaminosis D Left wrist pain Mild asthma Osteoporosis <Essie Price NP - Last Filed: 07/25/22 14:36> Surgical History: Surgical History History of carpal tunnel release History of removal of cyst History of tubal ligation Meningioma <Essie Price NP - Last Filed: 07/25/22 14:36> Family History Family History: Family History Father Essential hypertension Mother Essential hypertension Maternal Aunt Breast cancer <Essie Price NP - Last Filed: 07/25/22 14:36> Social History Social History: Social History Housing: Apartment Are you a primary primary care sales representative to a significant other at home: No Do you presently have visiting nurse or other home services: No Alcohol intake: current Alcohol intake frequency: holidays/special occasions only Alcohol type: beer Patient Tobacco Use Status: Never used Tobacco Smoked in Last 30 Days: No e-Cigarette/Vaping Use: Never Used Second Hand Smoke Exposure: No Use of substances other than those prescribed or required for medical reasons: No Advance Directives: No Advance Directives Information Provided: Yes service: No Current occupational status: unemployed Cognitive needs: No Hearing needs: No Vision needs: No <Essie Price NP - Last Filed: 07/25/22 14:36> Physical Exam ED Vital Signs: Vital Signs - 24 hr 07/25/22 14:32 Temperature 98.9 F Pulse Rate 132 H Respiratory Rate 20 Blood Pressure 150/81 H Pulse Oximetry 98 Oxygen Delivery Method Room Air BMI result Body Mass Index 28.5 <Essie Price NP - Last Filed: 07/25/22 14:36> Vital Signs - 24 hr 07/25/22 14:32 Temperature 98.9 F Pulse Rate 132 H Respiratory Rate 20 Blood Pressure 150/81 H Pulse Oximetry 98 Oxygen Delivery Method Room Air BMI result Body Mass Index 28.5 <Sadi Phelan MD - Last Filed: 07/25/22 17:01> GEN: Well developed, no acute distress, alert, oriented HEENT: Normocephalic, atraumatic, normal external ears, nose appears normal, no oropharyngeal edema or exudates Eyes: Normal to appearance Neck: Supple, no lymphadenopathy Respiratory: Talks in complete sentences, no respiratory distress, clear to auscultation bilaterally Cardiovascular: Regular rate and rhythm, no murmurs rubs or gallops Abdomen: Soft, nontender, nondistended, no guarding, no rebound Back: No CVA tenderness, right lumbar paraspinous tenderness, no midline tenderness Extremities: No clubbing cyanosis or edema Neurologic: No focal neurologic deficits, cranial nerves 2-12 intact, strength is 5/5 bilaterally, gait normal Skin: No rash <Sadi Phelan MD - Last Filed: 07/25/22 17:01> Course Course Course Narrative: This is a rapid medical exam. deferred additional HPI, ROS, PE to primary provider. 62 yo female with history of HTN, HLD, asthma, obesity, migraines here with complaints of lower back pain, urinary trouble, confusion x 2 weeks per family. Had outpatient labs/urine this week but family does not know the results. Tachycardia w/ hr 135 in triage. Using family as heating technician-they are confused patient is quite confused, repeating the same things, talking rapidly. Will need labs, UA, EKG, COVID screen. <Essie Price NP - Last Filed: 07/25/22 14:36> Reevaluation(s) Reevaluation #1: The workup is complete at this time. Patient has no urinary tract infection. Her back pain is most likely musculoskeletal. We talked about medical management and potential need for physical therapy or complementary medicine such as acupuncture, stretching, copying, chiropractics. Daughter is also expressed concerns about tearfulness in memory issues. It appears the patient has some form of depression and/or anxiety. At this time, patient appears to pose no threat to self or others. I do not believe her current condition warrants hospitalization or psychiatric consultation at this time. However I did speak extensively with both daughters regarding bringing patient back should her symptoms progress. In any event, close follow-up with the primary care provider would be appropriate to consider long-term antidepressant use, therapy, etc.. <Sadi Phelan MD - Last Filed: 07/25/22 17:01> Time: 16:55 <Sadi Phelan MD - Last Filed: 07/25/22 17:01> Medical Decision Making Medical Decision Making MDM Narrative: 8-year-old female presents with low back pain. Symptoms started approximately 10 days ago. The pain occasionally radiates to the right knee. Symptoms are moderate to severe. They are worse with movement. Her history and examination are most consistent with a musculoskeletal pain. She does have some urinary complaints so pyelonephritis or renal colic is another possibility. She had no CVA tenderness making this less likely diagnosis. She had no significant abdominal pain or tenderness to suggest acute appendicitis, epiploic appendagitis, mesenteric adenitis, IBD, IBS, colitis. Patient has no vaginal complaints. She patient will have routine laboratory analysis including urinalysis. <Sadi Phelan MD - Last Filed: 07/25/22 17:01> Differential Diagnosis Differential Diagnoses: The differential diagnosis associated with the presentation includes (Musculoskeletal back pain, lumbar radiculopathy, spinal stenosis, renal colic, pyelonephritis) <Sadi Phelan MD - Last Filed: 07/25/22 17:01> Admission/Observation Consideration of admission/observation: Escalation of care including admission/observation considered <Sadi Phelan MD - Last Filed: 07/25/22 17:01> Lab Data MDM Lab Attestation statement: I reviewed the patient's lab results. <Sadi Phelan MD - Last Filed: 07/25/22 17:01> Result Diagrams: 07/25/22 15:26 07/25/22 15:26 <Essie Price NP - Last Filed: 07/25/22 14:36> Labs: Lab Results 07/25/22 07/25/22 07/25/22 Range/Units 15:19 15:26 15:26 WBC 6.9 (4.8-10.8) X10*3/uL RBC 4.21 (4.20-5.50) X10*6/uL Hgb 12.4 (12.0-16.0) g/dl Hct 37.6 (37.0-47.0) % MCV 89.3 (80.0-98.0) fL MCH 29.5 (27.0-33.0) pg MCHC 33.0 (31.0-35.0) g/dl RDW 13.5 (11.0-16.0) % Plt Count 299 (160-400) X10*3/uL MPV 9.3 L (9.4-12.3) fL Immature Gran % (Auto) 0.1 (0.0-0.4) % Neut % (Auto) 78.3 H (45-73) % Lymph % (Auto) 16.5 L (20-40) % [place] % (Auto) 5.0 (2-11) % Eos % (Auto) 0.0 (0-4) % Baso % (Auto) 0.1 (0-2) % Lymph # (Auto) 1.1 L (1.2-4.9) X10*3/uL [place] # (Auto) 0.3 (0.1-1.2) X10*3/uL Eos # (Auto) 0.0 (0.0-0.4) X10*3/uL Baso # (Auto) 0.0 (0.0-0.2) X10*3/uL Abs Immat Gran (auto) 0.01 (0.00-0.03) X10*3/uL Absolute Neuts (auto) 5.4 (2.0-8.3) x10*3/uL Absolute Nucleated RBC 0.000 (0.0-0.012) X10*3/uL Nucleated RBC % (auto) 0.0 (0.0-0.2) /100WBC Sodium 134 L (135-145) mmol/L Potassium 3.8 (3.3-5.1) mmol/L Chloride 100 (96-108) mmol/L Carbon Dioxide 22 (22-29) mmol/L Anion Gap 16 (12-20) BUN 11 (9-16) mg/dL Creatinine 0.89 (0.5-1.4) mg/dL Estim Creat Clear Calc 59.5 Estimated GFR > 60 Random Glucose 203 H (60-115) mg/dL Calcium 9.7 (8.4-10.2) mg/dL Magnesium 1.9 (1.6-2.6) mg/dL Total Bilirubin 0.5 (0.0-1.0) mg/dL Direct Bilirubin 0.1 (0.0-0.5) mg/dL AST 25 (5-31) U/L ALT 22 (0-31) U/L Alkaline Phosphatase 79 (39-117) U/L Troponin I High Sens (<3.5-17.0) ng/L Total Protein 7.3 (6.5-8.0) g/dL Albumin 4.7 (3.5-5.0) g/dL Urine Color Yellow Urine Appearance Clear Urine pH 6.5 (5.0-9.0) Ur Specific [place] 1.015 (1.005-1.025) Urine Protein Trace (Neg-Trace) mg/dL Urine Glucose (UA) Negative (Negative) mg/dL Urine Ketones 40 (Negative) mg/dL Urine Blood Trace H (Negative) Urine Nitrite Negative (Negative) Ur Leukocyte Esterase Small (1+) H (Negative) Urine RBC 0-2 (0-2) /HPF Urine WBC 0-5 (0-5) /HPF Ur Squamous Epith Cells 11-20 (0-2) /HPF Urine Bacteria None Seen (None Seen) Hyaline Casts 0-2 (0-2) /LPF COVID-19 (JAYDEN) (Negative) COVID-19 Clin Com 07/25/22 07/25/22 Range/Units 15:26 15:26 WBC (4.8-10.8) X10*3/uL RBC (4.20-5.50) X10*6/uL Hgb (12.0-16.0) g/dl Hct (37.0-47.0) % MCV (80.0-98.0) fL MCH (27.0-33.0) pg MCHC (31.0-35.0) g/dl RDW (11.0-16.0) % Plt Count (160-400) X10*3/uL MPV (9.4-12.3) fL Immature Gran % (Auto) (0.0-0.4) % Neut % (Auto) (45-73) % Lymph % (Auto) (20-40) % [place] % (Auto) (2-11) % Eos % (Auto) (0-4) % Baso % (Auto) (0-2) % Lymph # (Auto) (1.2-4.9) X10*3/uL [place] # (Auto) (0.1-1.2) X10*3/uL Eos # (Auto) (0.0-0.4) X10*3/uL Baso # (Auto) (0.0-0.2) X10*3/uL Abs Immat Gran (auto) (0.00-0.03) X10*3/uL Absolute Neuts (auto) (2.0-8.3) x10*3/uL Absolute Nucleated RBC (0.0-0.012) X10*3/uL Nucleated RBC % (auto) (0.0-0.2) /100WBC Sodium (135-145) mmol/L Potassium (3.3-5.1) mmol/L Chloride (96-108) mmol/L Carbon Dioxide (22-29) mmol/L Anion Gap (12-20) BUN (9-16) mg/dL Creatinine (0.5-1.4) mg/dL Estim Creat Clear Calc Estimated GFR Random Glucose (60-115) mg/dL Calcium (8.4-10.2) mg/dL Magnesium (1.6-2.6) mg/dL Total Bilirubin (0.0-1.0) mg/dL Direct Bilirubin (0.0-0.5) mg/dL AST (5-31) U/L ALT (0-31) U/L Alkaline Phosphatase (39-117) U/L Troponin I High Sens 9.0 (<3.5-17.0) ng/L Total Protein (6.5-8.0) g/dL Albumin (3.5-5.0) g/dL Urine Color Urine Appearance Urine pH (5.0-9.0) Ur Specific [place] (1.005-1.025) Urine Protein (Neg-Trace) mg/dL Urine Glucose (UA) (Negative) mg/dL Urine Ketones (Negative) mg/dL Urine Blood (Negative) Urine Nitrite (Negative) Ur Leukocyte Esterase (Negative) Urine RBC (0-2) /HPF Urine WBC (0-5) /HPF Ur Squamous Epith Cells (0-2) /HPF Urine Bacteria (None Seen) Hyaline Casts (0-2) /LPF COVID-19 (JAYDEN) Negative (Negative) COVID-19 Clin Com See Note <Essie Price, RADIOLOGY PHYSICIAN ASSISTANT - Last Filed: 07/25/22 14:36> Lab Results 07/25/22 07/25/22 07/25/22 Range/Units 15:19 15:26 15:26 WBC 6.9 (4.8-10.8) X10*3/uL RBC 4.21 (4.20-5.50) X10*6/uL Hgb 12.4 (12.0-16.0) g/dl Hct 37.6 (37.0-47.0) % MCV 89.3 (80.0-98.0) fL MCH 29.5 (27.0-33.0) pg MCHC 33.0 (31.0-35.0) g/dl RDW 13.5 (11.0-16.0) % Plt Count 299 (160-400) X10*3/uL MPV 9.3 L (9.4-12.3) fL Immature Gran % (Auto) 0.1 (0.0-0.4) % Neut % (Auto) 78.3 H (45-73) % Lymph % (Auto) 16.5 L (20-40) % [place] % (Auto) 5.0 (2-11) % Eos % (Auto) 0.0 (0-4) % Baso % (Auto) 0.1 (0-2) % Lymph # (Auto) 1.1 L (1.2-4.9) X10*3/uL [place] # (Auto) 0.3 (0.1-1.2) X10*3/uL Eos # (Auto) 0.0 (0.0-0.4) X10*3/uL Baso # (Auto) 0.0 (0.0-0.2) X10*3/uL Abs Immat Gran (auto) 0.01 (0.00-0.03) X10*3/uL Absolute Neuts (auto) 5.4 (2.0-8.3) x10*3/uL Absolute Nucleated RBC 0.000 (0.0-0.012) X10*3/uL Nucleated RBC % (auto) 0.0 (0.0-0.2) /100WBC Sodium 134 L (135-145) mmol/L Potassium 3.8 (3.3-5.1) mmol/L Chloride 100 (96-108) mmol/L Carbon Dioxide 22 (22-29) mmol/L Anion Gap 16 (12-20) BUN 11 (9-16) mg/dL Creatinine 0.89 (0.5-1.4) mg/dL Estim Creat Clear Calc 59.5 Estimated GFR > 60 Random Glucose 203 H (60-115) mg/dL Calcium 9.7 (8.4-10.2) mg/dL Magnesium 1.9 (1.6-2.6) mg/dL Total Bilirubin 0.5 (0.0-1.0) mg/dL Direct Bilirubin 0.1 (0.0-0.5) mg/dL AST 25 (5-31) U/L ALT 22 (0-31) U/L Alkaline Phosphatase 79 (39-117) U/L Troponin I High Sens (<3.5-17.0) ng/L Total Protein 7.3 (6.5-8.0) g/dL Albumin 4.7 (3.5-5.0) g/dL Urine Color Yellow Urine Appearance Clear Urine pH 6.5 (5.0-9.0) Ur Specific [place] 1.015 (1.005-1.025) Urine Protein Trace (Neg-Trace) mg/dL Urine Glucose (UA) Negative (Negative) mg/dL Urine Ketones 40 (Negative) mg/dL Urine Blood Trace H (Negative) Urine Nitrite Negative (Negative) Ur Leukocyte Esterase Small (1+) H (Negative) Urine RBC 0-2 (0-2) /HPF Urine WBC 0-5 (0-5) /HPF Ur Squamous Epith Cells 11-20 (0-2) /HPF Urine Bacteria None Seen (None Seen) Hyaline Casts 0-2 (0-2) /LPF COVID-19 (JAYDEN) (Negative) COVID-19 Clin Com 07/25/22 07/25/22 Range/Units 15:26 15:26 WBC (4.8-10.8) X10*3/uL RBC (4.20-5.50) X10*6/uL Hgb (12.0-16.0) g/dl Hct (37.0-47.0) % MCV (80.0-98.0) fL MCH (27.0-33.0) pg MCHC (31.0-35.0) g/dl RDW (11.0-16.0) % Plt Count (160-400) X10*3/uL MPV (9.4-12.3) fL Immature Gran % (Auto) (0.0-0.4) % Neut % (Auto) (45-73) % Lymph % (Auto) (20-40) % [place] % (Auto) (2-11) % Eos % (Auto) (0-4) % Baso % (Auto) (0-2) % Lymph # (Auto) (1.2-4.9) X10*3/uL [place] # (Auto) (0.1-1.2) X10*3/uL Eos # (Auto) (0.0-0.4) X10*3/uL Baso # (Auto) (0.0-0.2) X10*3/uL Abs Immat Gran (auto) (0.00-0.03) X10*3/uL Absolute Neuts (auto) (2.0-8.3) x10*3/uL Absolute Nucleated RBC (0.0-0.012) X10*3/uL Nucleated RBC % (auto) (0.0-0.2) /100WBC Sodium (135-145) mmol/L Potassium (3.3-5.1) mmol/L Chloride (96-108) mmol/L Carbon Dioxide (22-29) mmol/L Anion Gap (12-20) BUN (9-16) mg/dL Creatinine (0.5-1.4) mg/dL Estim Creat Clear Calc Estimated GFR Random Glucose (60-115) mg/dL Calcium (8.4-10.2) mg/dL Magnesium (1.6-2.6) mg/dL Total Bilirubin (0.0-1.0) mg/dL Direct Bilirubin (0.0-0.5) mg/dL AST (5-31) U/L ALT (0-31) U/L Alkaline Phosphatase (39-117) U/L Troponin I High Sens 9.0 (<3.5-17.0) ng/L Total Protein (6.5-8.0) g/dL Albumin (3.5-5.0) g/dL Urine Color Urine Appearance Urine pH (5.0-9.0) Ur Specific [place] (1.005-1.025) Urine Protein (Neg-Trace) mg/dL Urine Glucose (UA) (Negative) mg/dL Urine Ketones (Negative) mg/dL Urine Blood (Negative) Urine Nitrite (Negative) Ur Leukocyte Esterase (Negative) Urine RBC (0-2) /HPF Urine WBC (0-5) /HPF Ur Squamous Epith Cells (0-2) /HPF Urine Bacteria (None Seen) Hyaline Casts (0-2) /LPF COVID-19 (JAYDEN) Negative (Negative) COVID-19 Clin Com See Note <Sadi Phelan MD - Last Filed: 07/25/22 17:01> Independent Interpretation I performed an independent interpretation of an: EKG (Sinus tachycardia heart rate 132, no acute ST elevations depressions, otherwise normal intervals.) <Sadi Phelan MD - Last Filed: 07/25/22 17:01> Independent Historian Clinical information obtained from an independent historian. History obtained from or confirmed by: Other (Daughters) <Sadi Phelan MD - Last Filed: 07/25/22 17:01> Tests considered The following testing was considered but not selected: Ultrasound, CT scan <Sadi Phelan MD - Last Filed: 07/25/22 17:01> Prescription Management I considered prescription management with: Pain Medication and Antibiotic <Sadi Phelan MD - Last Filed: 07/25/22 17:01> Discharge Plan Discharge Clinical Impression: Musculoskeletal back pain, Acute hyperglycemia <Essie Price NP - Last Filed: 07/25/22 14:36> Patient Disposition: Home, Self-Care <Essie Price NP - Last Filed: 07/25/22 14:36> Instructions: Nondiabetic Hyperglycemia (ED), Back Pain (ED) <Essie Price NP - Last Filed: 07/25/22 14:36> Additional Instructions: For pain, I am recommending meloxicam daily for the next 10-14 days. For additional pain relief take Tylenol 1000 mg every 6 hours as needed. I am also prescribing a mild muscle relaxer which he may take every 8 hours as needed. Please be aware this may cause drowsiness. Should her symptoms worsen or any other concerning symptoms, please return to the emergency department for re-evaluation. Otherwise I am recommending close follow-up with her primary care provider in 1 week. <Essie Price NP - Last Filed: 07/25/22 14:36> Prescriptions: No Action (DME) AeroEclipse II Nebulizer Misc See Rx Instructions .ROUTE .MEDSUPPLY Qty: 1 0RF Rx Instructions: As directed calcium citrate 200 mg (950 mg) tablet 400 mg PO BID 30 Days Qty: 120 12RF (DME) blood pressure monitor Kit See Rx Instructions .Route Qty: 1 0RF Rx Instructions: As directed aspirin 81 mg tablet,delayed release (DR/EC) 81 mg PO DAILY 90 Days Qty: 90 3RF atorvastatin 40 mg tablet 40 mg PO BEDTIME 90 Days Qty: 90 3RF alendronate 70 mg tablet 70 mg PO QWEEK Qty: 4 6RF albuterol sulfate 90 mcg/actuation HFA aerosol inhaler 2 puff inhalation Q4-6H PRN (Reason: bronchospasm) 30 Days Qty: 6.7 4RF omega-3 fatty acids-fish oil 340-1,000 mg capsule 1 cap PO BID 90 Days Qty: 180 1RF lisinopril-hydrochlorothiazide 10-12.5 mg tablet 1 tab PO DAILY Qty: 30 6RF albuterol sulfate 0.63 mg/3 mL solution for nebulization 0.63 mg inhalation Q4-6H PRN (Reason: bronchospasm) 30 Days Qty: 75 4RF cholecalciferol (vitamin D3) [Vitamin D3] 25 mcg (1,000 unit) capsule 25 mcg PO DAILY Qty: 90 3RF fluticasone propionate 50 mcg/actuation spray,suspension 2 spray intranasal DAILY PRN (Reason: Dry Nasal Passages) 30 Days Qty: 16 1RF loratadine [Allergy Relief (loratadine)] 10 mg tablet 10 mg PO DAILY PRN (Reason: allergy symptoms) 90 Days Qty: 90 1RF sumatriptan succinate 50 mg tablet 1 PO NEEDED <Essie Price NP - Last Filed: 07/25/22 14:36> Referrals: Yasmin Cleaning MD [Primary Care Provider] - 1 week <Essie Price NP - Last Filed: 07/25/22 14:36> Print Language: Kinyarwanda <Essie Price NP - Last Filed: 07/25/22 14:36>
[2022-07-25 14:32] VITALS: BP 150/81; PULSE 132; RESP 20; TEMP 37.2; O2SAT 98; BMI 28.5
--- NOTE | 2022-07-25 14:35 | ECG_ITS ---
Test Reason : kidney issue Blood Pressure : / mmHG Vent. Rate : 132 BPM Atrial Rate : 132 BPM P-R Int : 144 ms QRS Dur : 084 ms QT Int : 294 ms P-R-T Axes : 049 007 061 degrees QTc Int : 435 ms Sinus tachycardia Possible Inferior infarct , age undetermined Abnormal ECG When compared with ECG of 13-JUN-2022 14:38, No significant change was found Referred By: Essie Price Electronically Signed By:MALIKA CAI MD
[2022-07-25 15:28] LABS: Appearance Urine Clear; Color Urine Yellow; Glucose Urine UA Negative (Negative); Leukocyte Esterase Urine Small (1+) (Negative); Nitrite Urine Negative (Negative); PH 6.5 (5.0-9.0); Specific Gravity - Urine 1.015 (1.005-1.025); UMIC TRIGGER UACC YES; Urine Blood Trace (Negative); Urine Ketones 40 mg/dL (Negative); Urine Protein Trace mg/dL (Neg-Trace)
[2022-07-25 15:30] LABS: MANUAL DIFF FLAG NO
[2022-07-25 15:47] LABS: Basophils Percent Auto 0.1 % (0-2); Hematocrit 37.6 % (37.0-47.0); Hemoglobin 12.4 g/dl (12.0-16.0); Imm Gran Abs Auto 0.01 X10*3/uL (0.00-0.03); Imm Gran Pct Auto 0.1 % (0.0-0.4); Lymphocytes Absolute Auto 1.1 X10*3/uL (1.2-4.9); Lymphocytes Percent Auto 16.5 % (20-40); Mean Corpuscular Hemoglobin 29.5 pg (27.0-33.0); Mean Corpuscular Volume 89.3 fL (80.0-98.0); Mean Platelet Volume 9.3 fL (9.4-12.3); Monocytes Absolute Auto 0.3 X10*3/uL (0.1-1.2); Neutrophils Absolute Auto 5.4 x10*3/uL (2.0-8.3); Neutrophils Percent Auto 78.3 % (45-73); Platelet Count 299 X10*3/uL (160-400); Red Blood Count 4.21 X10*6/uL (4.20-5.50); Red Cell Distribution Width 13.5 % (11.0-16.0); White Blood Count 6.9 X10*3/uL (4.8-10.8)
[2022-07-25 15:50] LABS: COVID-19 Test Negative (Negative); IDNOW Serial# 08D9AD1C
[2022-07-25 15:53] LABS: Alanine Aminotransferase 22 U/L (0-31); Albumin Level 4.7 g/dL (3.5-5.0); Alkaline Phosphatase 79 U/L (39-117); Anion Gap 16 (12-20); Aspartate Amino Transferase 25 U/L (5-31); Bilirubin Direct 0.1 mg/dL (0.0-0.5); Bilirubin Total 0.5 mg/dL (0.0-1.0); Blood Urea Nitrogen 11 mg/dL (9-16); Calcium 9.7 mg/dL (8.4-10.2); Carbon Dioxide 22 mmol/L (22-29); Chloride 100 mmol/L (96-108); Creatinine Clr Calc Pharmacy 59.5; Estimated Glomerular Filt Rate > 60; Glucose Random 203 mg/dL (60-115); Magnesium 1.9 mg/dL (1.6-2.6); Potassium 3.8 mmol/L (3.3-5.1); Sodium 134 mmol/L (135-145); Total Protein 7.3 g/dL (6.5-8.0)
[2022-07-25 16:06] LABS: Bacteria Urine None Seen (None Seen); Hyaline Casts Urine 0-2 /LPF (0-2); RBC Urine 0-2 /HPF (0-2); UACC Culture Trigger YES; WBC Urine 0-5 /HPF (0-5)
[2022-07-25] MEDS: Acetaminophen 325 MG TABLET 975 MG PO (16:50)
[2022-07-25] MEDS: Ibuprofen 400 MG TABLET PO (16:50)
== END 2022-07-25 17:27 | disposition home or self-care (01) ==
PROVIDERS: Nurse Practitioner Family; Emergency Provider Emergency Medicine; PCP Internal Medicine
DX: M54.50 Low back pain, unspecified (principal); R73.9 Hyperglycemia, unspecified; R00.0 Tachycardia, unspecified; M25.561 Pain in right knee; Z20.822 Contact with and (suspected) exposure to COVID-19; Z20.828 Contact with and (suspected) exposure to other viral communicable diseases; Z79.899 Other long term (current) drug therapy
CPT/HCPCS: 36415; 80048; 80076; 81001; 83735; 84484; 85025; 87086; 87635; 93005; 99283; 99284

== ENCOUNTER 2022-07-30 16:39 | Outpatient (REF) | payer OTHER, SELFPAY | END 2022-07-30 16:40 | disposition home or self-care (01) | LOC: HO.LAB 16:39 | PROVIDERS: Visit Provider Internal Medicine | DX: N39.0 Urinary tract infection, site not specified (principal) | CPT/HCPCS: 87086 ==

== ENCOUNTER 2022-07-31 10:36 | Emergency (ER) | payer OTHER, SELFPAY ==
[2022-07-31 10:44] VITALS: BP 128/93; PULSE 108; RESP 20; TEMP 36.8; O2SAT 95; BMI 28.5
--- NOTE | 2022-07-31 11:01 | ED.AMS ---
HPI - Altered Mental Status General Chief Complaint: Altered Mental Status Stated Complaint: failure to thrive Time Seen by Provider: 07/31/22 11:01 Source: patient, family, old records reviewed and circuit judge Mode of arrival: ambulatory Limitations: altered mental status History of Present Illness HPI narrative: 8-year-old female with a history of asthma, osteoporosis, obesity, HTN, HLD who presents to the ER for evaluation of confusion, insomnia per family. Patient was recently seen here on July 25 for low back pain, urinary trouble in confusion for the last couple of weeks. Her urine was negative for infection at that time. She was started on NSAIDs for her back pain. She was then taken to [facility] for the same where she was admitted for acute UTI, hyperactive delirium. She was seen by Psychiatry during that admission was started on Zyprexa 5 mg b.i.d. and b.i.d. p.r.n. as needed for agitation. She was given Rocephin while in the hospital and discharged on oral Levaquin. She had a CT scan done at that time showing chronic encephalomalacia. She was oriented x3 on the day of discharge. She rise to the ER today very restless, paranoid, racing thoughts. She is disoriented, only oriented to self. Family concerned about her behaviors at home. They feel she is not safe at home. MD complaint: confusion Onset (ago): week(s) Timing confirmed by: family member Severity: similar to previous episodes Consistency of symptoms: getting Worse Context: history of similar presentation Associated symptoms: denies other symptoms Related Data Home Medications Medication Instructions Recorded Confirmed sumatriptan succinate 50 mg tablet 50 mg PO NEEDED PRN Migraine 12/26/21 07/31/22 Headache olanzapine 5 mg tablet 5 mg PO Q12H PRN Agitation 07/30/22 07/31/22 alprazolam 1 mg tablet 2 mg PO DAILY PRN ANXIETY PRIOR TO 07/31/22 07/31/22 MRI levofloxacin 750 mg tablet 750 mg PO DAILY 07/31/22 07/31/22 Previous Rx's Medication Instructions Recorded nebulizers (AeroEclipse II #1 ea 09/05/20 Nebulizer) calcium citrate 200 mg (950 mg) 400 mg PO BID 30 days #120 tabs 11/08/21 tablet blood pressure monitor #1 ea 01/06/22 aspirin 81 mg tablet,delayed 81 mg PO DAILY 90 days #90 tabs 01/08/22 release atorvastatin 40 mg tablet 40 mg PO BEDTIME 90 days #90 tabs 01/08/22 alendronate 70 mg tablet 70 mg PO QWEEK #4 tabs 01/30/22 albuterol sulfate 90 mcg/actuation 2 puff inhalation Q4-6H PRN 02/27/22 aerosol inhaler bronchospasm 30 days #6.7 grams omega-3 fatty acids-fish oil 340 1 cap PO BID 90 days #180 caps 03/12/22 mg-1,000 mg capsule lisinopril 10 1 tab PO DAILY #30 tabs 04/08/22 mg-hydrochlorothiazide 12.5 mg tablet albuterol sulfate 0.63 mg/3 mL 0.63 mg (3 mL) inhalation Q4-6H 05/28/22 solution for nebulization PRN bronchospasm 30 days #75 mL cholecalciferol (vitamin D3) 25 25 mcg PO DAILY #90 caps 06/17/22 mcg (1,000 unit) capsule (Vitamin D3) fluticasone propionate 50 2 spray intranasal DAILY PRN Dry 07/16/22 mcg/actuation nasal Nasal Passages 30 days #16 grams spray,suspension loratadine 10 mg tablet (Allergy 10 mg PO DAILY PRN allergy 07/16/22 Relief (loratadine)) symptoms 90 days #90 tabs cyclobenzaprine 10 mg tablet 10 mg PO TID PRN muscle spasm #10 07/25/22 tabs meloxicam 15 mg tablet 15 mg PO DAILY #14 tabs 07/25/22 risperidone 2 mg tablet (Risperdal) 2 mg PO BEDTIME 30 days #30 tabs 07/30/22 Allergies Allergy/AdvReac Type Severity Reaction Status Date / Time No Known Allergies Allergy Verified 07/30/22 18:18 Review of Systems Review of Systems: Yes all other systems are reviewed and are negative PMFSH Past Medical History Medical History Dyslipidemia Essential hypertension Family history of thyroid disease Hypovitaminosis D Left wrist pain Mild asthma Osteoporosis Surgical History History of carpal tunnel release History of removal of cyst History of tubal ligation Meningioma Family History Family History Father Essential hypertension Mother Essential hypertension Maternal Aunt Breast cancer Social History Social History Housing: Apartment Are you a primary health care manager to a significant other at home: No Do you presently have visiting nurse or other home services: No Alcohol intake: current Alcohol intake frequency: holidays/special occasions only Alcohol type: beer Patient Tobacco Use Status: Never used Tobacco e-Cigarette/Vaping Use: Never Used Second Hand Smoke Exposure: No Advance Directives: No service: No Current occupational status: unemployed Cognitive needs: No Hearing needs: No Vision needs: No Physical Exam ED Vital Signs: Vital Signs - 24 hr 07/31/22 10:44 07/31/22 16:03 Temperature 98.3 F 98.5 F Pulse Rate 108 H 109 H Respiratory Rate 20 16 Blood Pressure 128/93 H 142/92 H Pulse Oximetry 95 100 Oxygen Delivery Method Room Air Room Air BMI result Body Mass Index 28.5 Appearance: Alert. Oriented X1. No acute distress. Head: normocephalic, atraumatic. Eyes: Pupils equal, round and reactive to light. ENT: Pharynx normal. No tonsillar swelling or exudate. Neck: Normal inspection. Neck supple. CVS: Normal heart rate and rhythm. Pulses normal. Respiratory: No respiratory distress. Breath sounds normal. Abdomen: Soft and nontender. +BS x4 Skin: Skin warm and dry. Normal skin color. Normal skin turgor. No rashes. Extremities: No lower extremity edema. No joint swelling. Neuro/psych: Oriented X 1. No motor deficit. No sensory deficit. CN II-XII intact. Anxious, repetative questioning, paranoid Course Reevaluation(s) Reevaluation #1: Patient's restlessness and paranoia improved after a dose of Zyprexa. She is now sleeping comfortably. Her workup was unremarkable. Will place patient and physician observation at this time. Will have her evaluated by the psychiatry team in the care team with concerns for possible underlying psychiatric disorder. Physician observation started at 2:16pm. Patient placed in physician observation because patient is awaiting CARE team & psych evaluations for the possible need of inpatient psych admission. At the time observation was started patient's vital signs were stable. Patient is alert and oriented. Neuro exam is non-focal. CV: RRR and lungs are clear. Will continue to monitor. Medications Administered Discontinued Medications Generic Name Dose Route Start Last Admin Trade Name Lenny PRN Reason Stop Dose Admin Olanzapine 5 mg 07/31/22 11:32 07/31/22 11:51 Olanzapine 5 Mg Tablet PO 07/31/22 11:33 5 mg ONCE ONE Administration Olanzapine 5 mg 07/31/22 13:10 07/31/22 14:13 Olanzapine 5 Mg Tablet PO 07/31/22 13:11 Not Given ONCE ONE Medical Decision Making Medical Decision Making [facility] Narrative: 62-year-old female presents to the ER for evaluation from home for evaluation of confusion and odd behavior. She was recently admitted at [facility] for 2 days for similar. She was found to have a UTI at that time. She was treated with antibiotics. She was discharged with Zyprexa after being seen by Psychiatry. Behaviors got worse again at home. She was brought to the emergency room for further evaluation. On arrival to the ER the patient is restless, paranoid and hyperverbal. She is hemodynamically stable and afebrile. Lab workup was unremarkable. No leukocytosis or signs of infection. Urinalysis was negative for infection. Ammonia, VBG, TSH all unremarkable. She does recently had a CT scan of her head so that was held off. Consult for Psychiatry in the care team were placed Differential Diagnosis Differential Diagnoses: The differential diagnosis associated with the presentation includes Acute hyperactive delirium, early-onset dementia, infection, adverse medication reaction, thyroid problem, acute metabolic derangement, toxicity Admission/Observation Consideration of admission/observation: Escalation of care including admission/observation considered Lab Data [facility] Lab Attestation statement: I reviewed the patient's lab results. No significant metabolic derangement, no leukocytosis, urinalysis negative for infection 07/31/22 13:21 07/31/22 13:21 Labs: Lab Results 07/31/22 07/31/22 07/31/22 Range/Units 13:21 13:21 13:21 WBC 5.2 (4.8-10.8) X10*3/uL RBC 4.70 (4.20-5.50) X10*6/uL Hgb 13.5 (12.0-16.0) g/dl Hct 42.3 (37.0-47.0) % MCV 90.0 (80.0-98.0) fL MCH 28.7 (27.0-33.0) pg MCHC 31.9 (31.0-35.0) g/dl RDW 13.2 (11.0-16.0) % Plt Count 286 (160-400) X10*3/uL MPV 9.1 L (9.4-12.3) fL Immature Gran % (Auto) 0.2 (0.0-0.4) % Neut % (Auto) 52.1 (45-73) % Lymph % (Auto) 37.3 (20-40) % Davidson % (Auto) 8.3 (2-11) % Eos % (Auto) 1.9 (0-4) % Baso % (Auto) 0.2 (0-2) % Lymph # (Auto) 1.9 (1.2-4.9) X10*3/uL Davidson # (Auto) 0.4 (0.1-1.2) X10*3/uL Eos # (Auto) 0.1 (0.0-0.4) X10*3/uL Baso # (Auto) 0.0 (0.0-0.2) X10*3/uL Abs Immat Gran (auto) 0.01 (0.00-0.03) X10*3/uL Absolute Neuts (auto) 2.7 (2.0-8.3) x10*3/uL Absolute Nucleated RBC 0.000 (0.0-0.012) X10*3/uL Nucleated RBC % (auto) 0.0 (0.0-0.2) /100WBC VBG pH (7.32-7.43) VBG pCO2 mmHg VBG pO2 mmHg VBG HCO3 (22-26) mmol/L VBG O2 Saturation % VBG Base Excess mmol/L Sodium 141 (135-145) mmol/L Potassium 4.2 (3.3-5.1) mmol/L Chloride 103 (96-108) mmol/L Carbon Dioxide 28 (22-29) mmol/L Anion Gap 14 (12-20) BUN 8 L (9-16) mg/dL Creatinine 0.88 (0.5-1.4) mg/dL Estim Creat Clear Calc 62.6 Estimated GFR > 60 Random Glucose 114 (60-115) mg/dL Calcium 10.7 H D (8.4-10.2) mg/dL Magnesium 1.9 (1.6-2.6) mg/dL Total Bilirubin 0.6 (0.0-1.0) mg/dL Direct Bilirubin 0.2 (0.0-0.5) mg/dL AST 26 (5-31) U/L ALT 28 (0-31) U/L Alkaline Phosphatase 76 (39-117) U/L Ammonia 25 (13-55) umol/L Total Protein 7.5 (6.5-8.0) g/dL Albumin 4.7 (3.5-5.0) g/dL TSH 0.55 (0.32-4.0) uIU/mL Urine Color Urine Appearance Urine pH (5.0-9.0) Ur Specific [place] (1.005-1.025) Urine Protein (Neg-Trace) mg/dL Urine Glucose (UA) (Negative) mg/dL Urine Ketones (Negative) mg/dL Urine Blood (Negative) Urine Nitrite (Negative) Ur Leukocyte Esterase (Negative) Urine Opiates Screen (Not Detect) Urine Fentanyl Screen (Not Detect) Ur Barbiturates Screen (Not Detect) Ur Phencyclidine Scrn (Not Detect) Ur Amphetamines Screen (Not Detect) U Benzodiazepines Scrn (Not Detect) Urine Cocaine Screen (Not Detect) U Marijuana (THC) Screen (Not Detect) Ethyl Alcohol < 10 mg/dL COVID-19 ([facility]) (Negative) COVID-19 Clin Com 07/31/22 07/31/22 07/31/22 Range/Units 13:24 13:24 13:24 WBC (4.8-10.8) X10*3/uL RBC (4.20-5.50) X10*6/uL Hgb (12.0-16.0) g/dl Hct (37.0-47.0) % MCV (80.0-98.0) fL MCH (27.0-33.0) pg MCHC (31.0-35.0) g/dl RDW (11.0-16.0) % Plt Count (160-400) X10*3/uL MPV (9.4-12.3) fL Immature Gran % (Auto) (0.0-0.4) % Neut % (Auto) (45-73) % Lymph % (Auto) (20-40) % Davidson % (Auto) (2-11) % Eos % (Auto) (0-4) % Baso % (Auto) (0-2) % Lymph # (Auto) (1.2-4.9) X10*3/uL Davidson # (Auto) (0.1-1.2) X10*3/uL Eos # (Auto) (0.0-0.4) X10*3/uL Baso # (Auto) (0.0-0.2) X10*3/uL Abs Immat Gran (auto) (0.00-0.03) X10*3/uL Absolute Neuts (auto) (2.0-8.3) x10*3/uL Absolute Nucleated RBC (0.0-0.012) X10*3/uL Nucleated RBC % (auto) (0.0-0.2) /100WBC VBG pH (7.32-7.43) VBG pCO2 mmHg VBG pO2 mmHg VBG HCO3 (22-26) mmol/L VBG O2 Saturation % VBG Base Excess mmol/L Sodium (135-145) mmol/L Potassium (3.3-5.1) mmol/L Chloride (96-108) mmol/L Carbon Dioxide (22-29) mmol/L Anion Gap (12-20) BUN (9-16) mg/dL Creatinine (0.5-1.4) mg/dL Estim Creat Clear Calc Estimated GFR Random Glucose (60-115) mg/dL Calcium (8.4-10.2) mg/dL Magnesium (1.6-2.6) mg/dL Total Bilirubin (0.0-1.0) mg/dL Direct Bilirubin (0.0-0.5) mg/dL AST (5-31) U/L ALT (0-31) U/L Alkaline Phosphatase (39-117) U/L Ammonia (13-55) umol/L Total Protein (6.5-8.0) g/dL Albumin (3.5-5.0) g/dL TSH (0.32-4.0) uIU/mL Urine Color Yellow Urine Appearance Clear Urine pH 7.5 (5.0-9.0) Ur Specific [place] <= 1.005 (1.005-1.025) Urine Protein Negative (Neg-Trace) mg/dL Urine Glucose (UA) Negative (Negative) mg/dL Urine Ketones Negative (Negative) mg/dL Urine Blood Negative (Negative) Urine Nitrite Negative (Negative) Ur Leukocyte Esterase Negative (Negative) Urine Opiates Screen Not Detected (Not Detect) Urine Fentanyl Screen Not Detected (Not Detect) Ur Barbiturates Screen Not Detected (Not Detect) Ur Phencyclidine Scrn Not Detected (Not Detect) Ur Amphetamines Screen Not Detected (Not Detect) U Benzodiazepines Scrn Not Detected (Not Detect) Urine Cocaine Screen Not Detected (Not Detect) U Marijuana (THC) Screen Not Detected (Not Detect) Ethyl Alcohol mg/dL COVID-19 ([facility]DEN) Negative (Negative) COVID-19 Clin Com See Note 07/31/22 Range/Units 13:27 WBC (4.8-10.8) X10*3/uL RBC (4.20-5.50) X10*6/uL Hgb (12.0-16.0) g/dl Hct (37.0-47.0) % MCV (80.0-98.0) fL MCH (27.0-33.0) pg MCHC (31.0-35.0) g/dl RDW (11.0-16.0) % Plt Count (160-400) X10*3/uL MPV (9.4-12.3) fL Immature Gran % (Auto) (0.0-0.4) % Neut % (Auto) (45-73) % Lymph % (Auto) (20-40) % Davidson % (Auto) (2-11) % Eos % (Auto) (0-4) % Baso % (Auto) (0-2) % Lymph # (Auto) (1.2-4.9) X10*3/uL Davidson # (Auto) (0.1-1.2) X10*3/uL Eos # (Auto) (0.0-0.4) X10*3/uL Baso # (Auto) (0.0-0.2) X10*3/uL Abs Immat Gran (auto) (0.00-0.03) X10*3/uL Absolute Neuts (auto) (2.0-8.3) x10*3/uL Absolute Nucleated RBC (0.0-0.012) X10*3/uL Nucleated RBC % (auto) (0.0-0.2) /100WBC VBG pH 7.40 (7.32-7.43) VBG pCO2 49 mmHg VBG pO2 39 mmHg VBG HCO3 31 H (22-26) mmol/L VBG O2 Saturation 64.0 % VBG Base Excess 5.2 mmol/L Sodium (135-145) mmol/L Potassium (3.3-5.1) mmol/L Chloride (96-108) mmol/L Carbon Dioxide (22-29) mmol/L Anion Gap (12-20) BUN (9-16) mg/dL Creatinine (0.5-1.4) mg/dL Estim Creat Clear Calc Estimated GFR Random Glucose (60-115) mg/dL Calcium (8.4-10.2) mg/dL Magnesium (1.6-2.6) mg/dL Total Bilirubin (0.0-1.0) mg/dL Direct Bilirubin (0.0-0.5) mg/dL AST (5-31) U/L ALT (0-31) U/L Alkaline Phosphatase (39-117) U/L Ammonia (13-55) umol/L Total Protein (6.5-8.0) g/dL Albumin (3.5-5.0) g/dL TSH (0.32-4.0) uIU/mL Urine Color Urine Appearance Urine pH (5.0-9.0) Ur Specific [place] (1.005-1.025) Urine Protein (Neg-Trace) mg/dL Urine Glucose (UA) (Negative) mg/dL Urine Ketones (Negative) mg/dL Urine Blood (Negative) Urine Nitrite (Negative) Ur Leukocyte Esterase (Negative) Urine Opiates Screen (Not Detect) Urine Fentanyl Screen (Not Detect) Ur Barbiturates Screen (Not Detect) Ur Phencyclidine Scrn (Not Detect) Ur Amphetamines Screen (Not Detect) U Benzodiazepines Scrn (Not Detect) Urine Cocaine Screen (Not Detect) U Marijuana (THC) Screen (Not Detect) Ethyl Alcohol mg/dL COVID-19 ([facility]) (Negative) COVID-19 Clin Com Independent Historian Clinical information obtained from an independent historian. History obtained from or confirmed by: Other (Daughter at the bedside) External Record Review External record reviewed: Inpatient record, Outpatient record, Prior outpatient labs, Prior outpatient radiology and Outside ED record Prescription Management I considered prescription management with: Other (Antipsychotic) Chronic Conditions Patient?s care impacted by: Hypertension Critical Care Time Critical Care Time Critical Care Time: No Discharge Plan Discharge Clinical Impression: Acute confusion Patient Disposition: Still a Patient Prescriptions: No Action (DME) AeroEclipse II Nebulizer Misc See Rx Instructions .ROUTE .MEDSUPPLY Qty: 1 0RF Rx Instructions: As directed calcium citrate 200 mg (950 mg) tablet 400 mg PO BID 30 Days Qty: 120 12RF (DME) blood pressure monitor Kit See Rx Instructions .Route Qty: 1 0RF Rx Instructions: As directed aspirin 81 mg tablet,delayed release (DR/EC) 81 mg PO DAILY 90 Days Qty: 90 3RF atorvastatin 40 mg tablet 40 mg PO BEDTIME 90 Days Qty: 90 3RF alendronate 70 mg tablet 70 mg PO QWEEK Qty: 4 6RF albuterol sulfate 90 mcg/actuation HFA aerosol inhaler 2 puff inhalation Q4-6H PRN (Reason: bronchospasm) 30 Days Qty: 6.7 4RF omega-3 fatty acids-fish oil 340-1,000 mg capsule 1 cap PO BID 90 Days Qty: 180 1RF lisinopril-hydrochlorothiazide 10-12.5 mg tablet 1 tab PO DAILY Qty: 30 6RF albuterol sulfate 0.63 mg/3 mL solution for nebulization 0.63 mg inhalation Q4-6H PRN (Reason: bronchospasm) 30 Days Qty: 75 4RF cholecalciferol (vitamin D3) [Vitamin D3] 25 mcg (1,000 unit) capsule 25 mcg PO DAILY Qty: 90 3RF fluticasone propionate 50 mcg/actuation spray,suspension 2 spray intranasal DAILY PRN (Reason: Dry Nasal Passages) 30 Days Qty: 16 1RF loratadine [Allergy Relief (loratadine)] 10 mg tablet 10 mg PO DAILY PRN (Reason: allergy symptoms) 90 Days Qty: 90 1RF cyclobenzaprine 10 mg tablet 10 mg PO TID PRN (Reason: muscle spasm) Qty: 10 0RF meloxicam 15 mg tablet 15 mg PO DAILY Qty: 14 0RF alprazolam 1 mg tablet 2 mg PO DAILY PRN (Reason: ANXIETY PRIOR TO MRI) Rx Instructions: 40 minutes before MRI levofloxacin 750 mg tablet 750 mg PO DAILY Rx Instructions: TAKE FOR 5 DAYS STARTING 07/29/22 risperidone [Risperdal] 2 mg tablet 2 mg PO BEDTIME 30 Days Qty: 30 0RF olanzapine 5 mg tablet 5 mg PO Q12H PRN (Reason: Agitation) sumatriptan succinate 50 mg tablet 50 mg PO NEEDED PRN (Reason: Migraine Headache) Rx Instructions: may repeat once in 2 hours if needed
[2022-07-31] MEDS: OLANZapine 5 MG TABLET PO ×2 (11:51→19:11)
--- NOTE | 2022-07-31 12:45 | PC.NURSE ---
Daughters in room attempted to draw blood and put in iv line. Patient would not stay. Still alert to self and date of confused and forgetful seems to not have any short term memory.
[2022-07-31 13:30] LABS: MANUAL DIFF FLAG NO
[2022-07-31 13:33] LABS: Basophils Percent Auto 0.2 % (0-2); Eosinophils Absolute Auto 0.1 X10*3/uL (0.0-0.4); Eosinophils Percent Auto 1.9 % (0-4); Hematocrit 42.3 % (37.0-47.0); Hemoglobin 13.5 g/dl (12.0-16.0); Imm Gran Abs Auto 0.01 X10*3/uL (0.00-0.03); Imm Gran Pct Auto 0.2 % (0.0-0.4); Lymphocytes Absolute Auto 1.9 X10*3/uL (1.2-4.9); Lymphocytes Percent Auto 37.3 % (20-40); Mean Corpuscular HGB Conc 31.9 g/dl (31.0-35.0); Mean Corpuscular Hemoglobin 28.7 pg (27.0-33.0); Mean Platelet Volume 9.1 fL (9.4-12.3); Monocytes Absolute Auto 0.4 X10*3/uL (0.1-1.2); Monocytes Percent Auto 8.3 % (2-11); Neutrophils Absolute Auto 2.7 x10*3/uL (2.0-8.3); Neutrophils Percent Auto 52.1 % (45-73); Platelet Count 286 X10*3/uL (160-400); Red Cell Distribution Width 13.2 % (11.0-16.0); White Blood Count 5.2 X10*3/uL (4.8-10.8)
[2022-07-31 13:34] LABS: Venous Blood Gas Refer to POC result
[2022-07-31 13:35] LABS: VBG Base Excess 5.2 mmol/L; VBG HCO3 31 mmol/L (22-26); VBG pCO2 49 mmHg; VBG pO2 39 mmHg
[2022-07-31 13:36] LABS: Appearance Urine Clear; Color Urine Yellow; Glucose Urine UA Negative (Negative); Leukocyte Esterase Urine Negative (Negative); Nitrite Urine Negative (Negative); PH 7.5 (5.0-9.0); Specific Gravity - Urine <= 1.005 (1.005-1.025); Urine Blood Negative (Negative); Urine Ketones Negative (Negative); Urine Protein Negative (Neg-Trace)
[2022-07-31 13:44] LABS: COVID-19 Test Negative (Negative); IDNOW Serial# BCCEAD1C
[2022-07-31 13:44] LABS: Ammonia 25 umol/L (13-55)
[2022-07-31 13:54] LABS: Amphetamine Screen Urine Not Detected (Not Detect); Barbiturates, Urine Not Detected (Not Detect); Benzodiazepines Screen Urine Not Detected (Not Detect); Cannabinoid Screen Urine Not Detected (Not Detect); Cocaine Screen Urine Not Detected (Not Detect); Opiate Screen Urine Not Detected (Not Detect); Phencyclidine Screen Urine Not Detected (Not Detect)
[2022-07-31 14:13] LABS: TSH reflex Free T4 0.55 uIU/mL (0.32-4.0)
[2022-07-31 14:14] LABS: Fentanyl, urine Not Detected (Not Detect)
[2022-07-31 14:14] LABS: Alanine Aminotransferase 28 U/L (0-31); Albumin Level 4.7 g/dL (3.5-5.0); Alkaline Phosphatase 76 U/L (39-117); Anion Gap 14 (12-20); Aspartate Amino Transferase 26 U/L (5-31); Bilirubin Direct 0.2 mg/dL (0.0-0.5); Bilirubin Total 0.6 mg/dL (0.0-1.0); Blood Urea Nitrogen 8 mg/dL (9-16); Calcium 10.7 mg/dL (8.4-10.2); Carbon Dioxide 28 mmol/L (22-29); Chloride 103 mmol/L (96-108); Creatinine Clr Calc Pharmacy 62.6; Estimated Glomerular Filt Rate > 60; Ethanol < 10 mg/dL; Glucose Random 114 mg/dL (60-115); Magnesium 1.9 mg/dL (1.6-2.6); Potassium 4.2 mmol/L (3.3-5.1); Sodium 141 mmol/L (135-145); Total Protein 7.5 g/dL (6.5-8.0)
--- NOTE | 2022-07-31 14:40 | PC.NURSE ---
Patient is now sleeping. Daugther at bedside.
[2022-07-31 16:03] VITALS: BP 142/92; PULSE 109; RESP 16; TEMP 36.9; O2SAT 100
--- NOTE | 2022-07-31 16:10 | PHA.MEDREC ---
Pharmacy Consult ? Medication Reconciliation Pharmacy has completed the medication reconciliation. Med rec complete using claim history and list from pcp office. Pt is altered and unable to provide much history.
[2022-07-31 18:43] VITALS: BP 120/78; PULSE 103; RESP 18; TEMP 37.2; O2SAT 99
[2022-07-31] MEDS: LORazepam 1 MG TABLET PO (19:11)
[2022-07-31 19:18] VITALS: BP 124/81; PULSE 128; RESP 20; TEMP 36.7; O2SAT 96
[2022-08-01 01:13] VITALS: BP 127/77; PULSE 100; RESP 17; O2SAT 96
--- NOTE | 2022-08-01 01:14 | MHC.EDTECH ---
pt is sleeping her daughter is with her
--- NOTE | 2022-08-01 05:06 | MHC.EDTECH ---
pt is still asleep and her daughter also sleeping beside her, she had a good night
--- NOTE | 2022-08-01 06:58 | PC.NURSE ---
Resumed care of patient this morning, daughter at bedside, awaiting neuro consult this morning. All needs met at this time.
[2022-08-01 07:54] VITALS: BP 126/71; PULSE 90; RESP 19; TEMP 36.6; O2SAT 98
[2022-08-01] MEDS: OLANZapine 5 MG TABLET PO ×2 (08:44→21:24)
[2022-08-01 14:43] VITALS: BP 115/68; PULSE 94; TEMP 36.9; O2SAT 98
[2022-08-01 21:27] VITALS: BP 129/74; PULSE 104; RESP 22; TEMP 36.8; O2SAT 97
--- NOTE | 2022-08-01 21:43 | MHC.EDTECH ---
At approximately 2100 this sheet writer went into room to check on patient and get her vitals. I was informed by patients family that she was not given lunch or dinner. At this time family also old this sheet writer that they were supposed to be seen by care team and neuro and no one had come to see them yet. Family was also concerned because they had not seen a DRLior all day. I called care team and they said that they did not have a referral but according to the notes a referral had been placed. At this time I redressed patients IV site, changed her linen and got her a sandwich,chips and a banana from the cafeteria .Patient is now resting comfortably and Care team has now ccome to talk to her.
--- NOTE | 2022-08-01 21:48 | PM.PSYCN ---
History of Present Illness Date of Service: 07/31/2022 Chief Complaint: failure to thrive Reason for Consult: delirium Discussed with referring provider: Yes Sources of Information: patient interviewed, chart reviewed and crisis/core team assessment reviewed HPI Narrative: Mrs. Cobb is a 62 year-old woman who was brought to [facility] ED due to presenting increasingly more confused, disoriented, not sleep. Pt previously went to [facility], treated for UTI. In the ED- pt presenting with poor attention, repeating herself as she is not sure if she said something or not. She is also somewhat suspicious when this person called her by her name, she asked procedure writer how I knew her name and why was I looking for her. She interrupted this procedure writer and asked if I answer the right question can I go home? She reported she wasn't sure where she was. She did state the correct year and month. Daughter was present during interview.Daughter reports pt not sleeping, talkative but repeating same sentences, confused at times for the past 3 weeks. No prior psych hx. Pt denies SI/HI. [facility] Medical History Dyslipidemia Essential hypertension Family history of thyroid disease Hypovitaminosis D Left wrist pain Mild asthma Osteoporosis Surgical History History of carpal tunnel release History of removal of cyst History of tubal ligation Meningioma Diagnostics Vital Signs (24Hr): Vital Signs - 24 hr 08/01/22 01:13 08/01/22 07:54 08/01/22 14:43 Temperature 98 F 98.5 F Pulse Rate 100 90 94 Respiratory Rate 17 19 Blood Pressure 127/77 126/71 115/68 Pulse Oximetry 96 98 98 Oxygen Delivery Method Room Air Room Air 08/01/22 21:27 Temperature 98.3 F Pulse Rate 104 H Respiratory Rate 22 H Blood Pressure 129/74 Pulse Oximetry 97 Oxygen Delivery Method Room Air BMI result Body Mass Index 28.5 Labs 07/31/22 13:21 07/31/22 13:21 Labs: Laboratory Results - last 48 hr 07/31/22 07/31/22 07/31/22 13:21 13:21 13:21 WBC 5.2 RBC 4.70 Hgb 13.5 Hct 42.3 MCV 90.0 MCH 28.7 MCHC 31.9 RDW 13.2 Plt Count 286 MPV 9.1 L Immature Gran % (Auto) 0.2 Neut % (Auto) 52.1 Lymph % (Auto) 37.3 [place] % (Auto) 8.3 Eos % (Auto) 1.9 Baso % (Auto) 0.2 Lymph # (Auto) 1.9 [place] # (Auto) 0.4 Eos # (Auto) 0.1 Baso # (Auto) 0.0 Abs Immat Gran (auto) 0.01 Absolute Neuts (auto) 2.7 Absolute Nucleated RBC 0.000 Nucleated RBC % (auto) 0.0 VBG pH VBG pCO2 VBG pO2 VBG HCO3 VBG O2 Saturation VBG Base Excess Sodium 141 Potassium 4.2 Chloride 103 Carbon Dioxide 28 Anion Gap 14 BUN 8 L Creatinine 0.88 Estim Creat Clear Calc 62.6 Estimated GFR > 60 Random Glucose 114 Calcium 10.7 H D Magnesium 1.9 Total Bilirubin 0.6 Direct Bilirubin 0.2 AST 26 ALT 28 Alkaline Phosphatase 76 Ammonia 25 Total Protein 7.5 Albumin 4.7 TSH 0.55 Urine Color Urine Appearance Urine pH Ur Specific [place] Urine Protein Urine Glucose (UA) Urine Ketones Urine Blood Urine Nitrite Ur Leukocyte Esterase Urine Opiates Screen Urine Fentanyl Screen Ur Barbiturates Screen Ur Phencyclidine Scrn Ur Amphetamines Screen U Benzodiazepines Scrn Urine Cocaine Screen U Marijuana (THC) Screen Ethyl Alcohol < 10 COVID-19 (JAYDEN) COVID-19 Clin Com 07/31/22 07/31/22 07/31/22 13:24 13:24 13:24 WBC RBC Hgb Hct MCV MCH MCHC RDW Plt Count MPV Immature Gran % (Auto) Neut % (Auto) Lymph % (Auto) [place] % (Auto) Eos % (Auto) Baso % (Auto) Lymph # (Auto) [place] # (Auto) Eos # (Auto) Baso # (Auto) Abs Immat Gran (auto) Absolute Neuts (auto) Absolute Nucleated RBC Nucleated RBC % (auto) VBG pH VBG pCO2 VBG pO2 VBG HCO3 VBG O2 Saturation VBG Base Excess Sodium Potassium Chloride Carbon Dioxide Anion Gap BUN Creatinine Estim Creat Clear Calc Estimated GFR Random Glucose Calcium Magnesium Total Bilirubin Direct Bilirubin AST ALT Alkaline Phosphatase Ammonia Total Protein Albumin TSH Urine Color Yellow Urine Appearance Clear Urine pH 7.5 Ur Specific [place] <= 1.005 Urine Protein Negative Urine Glucose (UA) Negative Urine Ketones Negative Urine Blood Negative Urine Nitrite Negative Ur Leukocyte Esterase Negative Urine Opiates Screen Not Detected Urine Fentanyl Screen Not Detected Ur Barbiturates Screen Not Detected Ur Phencyclidine Scrn Not Detected Ur Amphetamines Screen Not Detected U Benzodiazepines Scrn Not Detected Urine Cocaine Screen Not Detected U Marijuana (THC) Screen Not Detected Ethyl Alcohol COVID-19 (JAYDEN) Negative COVID-19 Clin Com See Note 07/31/22 13:27 WBC RBC Hgb Hct MCV MCH MCHC RDW Plt Count MPV Immature Gran % (Auto) Neut % (Auto) Lymph % (Auto) [place] % (Auto) Eos % (Auto) Baso % (Auto) Lymph # (Auto) [place] # (Auto) Eos # (Auto) Baso # (Auto) Abs Immat Gran (auto) Absolute Neuts (auto) Absolute Nucleated RBC Nucleated RBC % (auto) VBG pH 7.40 VBG pCO2 49 VBG pO2 39 VBG HCO3 31 H VBG O2 Saturation 64.0 VBG Base Excess 5.2 Sodium Potassium Chloride Carbon Dioxide Anion Gap BUN Creatinine Estim Creat Clear Calc Estimated GFR Random Glucose Calcium Magnesium Total Bilirubin Direct Bilirubin AST ALT Alkaline Phosphatase Ammonia Total Protein Albumin TSH Urine Color Urine Appearance Urine pH Ur Specific [place] Urine Protein Urine Glucose (UA) Urine Ketones Urine Blood Urine Nitrite Ur Leukocyte Esterase Urine Opiates Screen Urine Fentanyl Screen Ur Barbiturates Screen Ur Phencyclidine Scrn Ur Amphetamines Screen U Benzodiazepines Scrn Urine Cocaine Screen U Marijuana (THC) Screen Ethyl Alcohol COVID-19 (JAYDEN) COVID-19 Clin Com Mental Status Exam Mental Status Exam Narrative: Appearance: wearing hospital gown, disheveled, restless Behavior: guarded and suspicious of this procedure writer Psychomotor: some restlessness, moving around in bed. Speech: mumbles at times, hyperverbal, nor pressured, difficult to interrupt at times, spontaneous TP: disorganized, repetitive at times TC: somewhat suspicious, wanting to go. Mood: good Affect: restless, anxious, hypervigilant SI:denies HI: denies VH/AH: no overt Delusions: somewhat suspicious Insight/judgment: impaired x 2. Memory/cog alert, confused at times as to where she is and why she is in the hospital. She does know the month, year. Medications Medications Current Medications Olanzapine (Olanzapine 5 Mg Tablet) 5 mg PO BID AZ Last Admin: 08/01/22 21:24 Dose: 5 mg Pharmacy Consult (Consult Rx Perform Med Rec) 1 each MISCELLANE ONCE PRN PRN Reason: Consult order Allergies Allergies Allergy/AdvReac Type Severity Reaction Status Date / Time No Known Allergies Allergy Verified 07/30/22 18:18 Assessment & Plan Assessment & Plan (1) Delirium: Status: Acute Code(s): R41.0 - Disorientation, unspecified Plan Mrs. Cobb is a 62 year-old woman brought in to [facility] ED due to increase confusion, agitation, lack of sleep. No prior psych hx. Medical work up unremarkable- including cbc, cmp, did have head CT at [facility]. Pt currently presents with s/s of delirium including fluctuating levels of orientation, confusion, poor attention. These symptoms does not appear to be related to primarily psychiatric disorder nor underlying dementia. PLAN- schedule olanzapine 5mg po bid, monitor EKG, maintain QTc<500ms, maintain K>4, Mg >2. Unclear etiology of delirium. Total time managing care of this patient today ____ minutes.
--- NOTE | 2022-08-01 23:48 | PC.NURSE ---
Late entry regarding discussion with care team provider Tariq. Per Tariq pt was initially referred to the ED 07/31 by her PCP for MRI d/t family's reports of behavioral changes; rapid speech/thoughts, decreased memory, etc. Pt seen at [facility] over the weekend were a head CT was performed and the pt was found to have chronic encephalomalacia which per Tariq (Care Team) can be a result of brain injury, tumor or CVA. pt noted to have a history of a brain tumor that was surgically removed in 2001 although the root was still there per daughter at bedside. Care team reports the pt has only had 1 previous psych visit/need which was when she was in her 20s. Pt followed by Dr Warren (neuro) but unsure if PCP consulted or updated neuro. Per Care Team the pt cannot be medically cleared and/or a true psych disposition provided if they cannot determine if her tumor has returned and/or if there is a medical reason for her behavior changes. Care Team requesting MRI per PCP request adding that Care Team will follow up with patient and will request a Neuro consult be placed/completed as well. Update at [id number]; Tariq from Care Team to bedside with MD Gagnon, pt offered a MRI in the AM however she is reportedly unable to tolerate a closed MRI machine and requires an open MRI which we cannot accommodate. pt to be discharged home with plan for PCP follow up and outpatient MRI.
[2022-08-02] VITALS: BP 126/70; PULSE 100; RESP 16; TEMP 37; O2SAT 98
== END 2022-08-02 00:49 | disposition home or self-care (01) ==
PROVIDERS: Physician Assistant; Emergency Provider Emergency Medicine Emergency Medical Services; PCP Internal Medicine
DX: R41.0 Disorientation, unspecified (principal); R62.7 Adult failure to thrive; Z20.822 Contact with and (suspected) exposure to COVID-19; Z20.828 Contact with and (suspected) exposure to other viral communicable diseases; Z79.899 Other long term (current) drug therapy
CPT/HCPCS: 80048; 80076; 80307; 81003; 82077; 82140; 82803; 83735; 84443; 85025; 87635; 99284; 99285; S9485

== ENCOUNTER 2022-08-02 16:27 | Inpatient (IN) | payer OTHER, SELFPAY ==
--- NOTE | ~2022-08-02 | CT_ITS ---
EXAMINATION: CT HEAD WITH/WITHOUT CONTRAST CLINICAL INFORMATION: Changing behavior. Rule out mass effect. COMPARISON: Previous head CT May 2016 TECHNIQUE: Contiguous axial imaging was performed from the skull base to vertex before and after the administration of 85 mL of Omnipaque [address] examination was performed using dose optimization techniques as appropriate, variously including the following: *Automated exposure control *Adjustment of mA and/or kV according to patient size (this includes techniques or standardized protocols for targeted exams where dose is matched to indication/reason for exam; i.e. extremities or head) *Use of iterative reconstruction technique DLP: 1363 mGy-cm FINDINGS: There is no evidence of an extra-axial collection. There is no evidence of intra-axial or extra-axial hemorrhage. There are stable postsurgical changes to the posterior fossa. There is calcification adjacent to the sagittal sinus and right transverse sinus that appears unchanged. Aceves-white matter differentiation is normal. No mass, mass effect, infarct or abnormal enhancement is seen. There are postsurgical changes to the occipital bone. No skull fracture or bone lesion. Visualized paranasal sinuses, mastoid air cells and middle ears are clear. CT/CT head/brain wo/w IV con IMPRESSION: Stable postoperative changes to the posterior fossa from May 2016. No acute findings.
[2022-08-02 16:55] VITALS: BP 135/63; PULSE 117; RESP 18; TEMP 36.7; O2SAT 98; BMI 28.3
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
[2022-08-02 17:37] LABS: Amphetamine Screen Urine Not Detected (Not Detect); Appearance Urine Clear; Barbiturates, Urine Not Detected (Not Detect); Benzodiazepines Screen Urine Not Detected (Not Detect); Cannabinoid Screen Urine Not Detected (Not Detect); Cocaine Screen Urine Not Detected (Not Detect); Color Urine Yellow; Fentanyl, urine Not Detected (Not Detect); Glucose Urine UA Negative (Negative); Leukocyte Esterase Urine Trace (Negative); Nitrite Urine Negative (Negative); Opiate Screen Urine Not Detected (Not Detect); Phencyclidine Screen Urine Not Detected (Not Detect); Specific Gravity - Urine <= 1.005 (1.005-1.025); UMIC TRIGGER UACC YES; Urine Blood Negative (Negative); Urine Ketones Negative (Negative); Urine Protein Negative (Neg-Trace)
[2022-08-02 17:42] LABS: Bacteria Urine None Seen (None Seen); Hyaline Casts Urine 0-2 /LPF (0-2); RBC Urine 0-2 /HPF (0-2); WBC Urine 0-5 /HPF (0-5)
--- NOTE | 2022-08-02 18:00 | ED.GENADULT ---
HPI - General Adult General Chief complaint: General Medical Stated complaint: Acute confusion Time Seen by Provider: 08/02/22 17:26 Source: patient and family Mode of arrival: ambulatory Limitations: no limitations History of Present Illness HPI narrative: History of bipolar disorder was seen here 07/25 discharged yesterday for diagnosis of delirium And increased confusion patient does have history of hypertension hyperlipidemia osteoporosis asthma meningioma status post surgery about 20 years ago patient was at [facility] 3 days prior to last admission there was no change in the CT scan and MRI was not recommended but daughter was asking for MRI patient is paranoid with racing thoughts was given Zyprexa during last admit pain Related Data Home Medications Medication Instructions Recorded Confirmed sumatriptan succinate 50 mg tablet 50 mg PO NEEDED PRN Migraine 12/26/21 08/02/22 Headache olanzapine 5 mg tablet 5 mg PO Q12H PRN Agitation 07/30/22 08/02/22 alprazolam 1 mg tablet 2 mg PO DAILY PRN ANXIETY PRIOR TO 07/31/22 08/02/22 MRI levofloxacin 750 mg tablet 750 mg PO DAILY 07/31/22 08/02/22 Previous Rx's Medication Instructions Recorded calcium citrate 200 mg (950 mg) 400 mg PO BID 30 days #120 tabs 11/08/21 tablet aspirin 81 mg tablet,delayed 81 mg PO DAILY 90 days #90 tabs 01/08/22 release atorvastatin 40 mg tablet 40 mg PO BEDTIME 90 days #90 tabs 01/08/22 alendronate 70 mg tablet 70 mg PO QWEEK #4 tabs 01/30/22 albuterol sulfate 90 mcg/actuation 2 puff inhalation Q4-6H PRN 02/27/22 aerosol inhaler bronchospasm 30 days #6.7 grams lisinopril 10 1 tab PO DAILY #30 tabs 04/08/22 mg-hydrochlorothiazide 12.5 mg tablet albuterol sulfate 0.63 mg/3 mL 0.63 mg (3 mL) inhalation Q4-6H 05/28/22 solution for nebulization PRN bronchospasm 30 days #75 mL cholecalciferol (vitamin D3) 25 25 mcg PO DAILY #90 caps 06/17/22 mcg (1,000 unit) capsule (Vitamin D3) fluticasone propionate 50 2 spray intranasal DAILY PRN Dry 07/16/22 mcg/actuation nasal Nasal Passages 30 days #16 grams spray,suspension loratadine 10 mg tablet (Allergy 10 mg PO DAILY PRN allergy 07/16/22 Relief (loratadine)) symptoms 90 days #90 tabs meloxicam 15 mg tablet 15 mg PO DAILY #14 tabs 07/25/22 risperidone 2 mg tablet (Risperdal) 2 mg PO BEDTIME 30 days #30 tabs 07/30/22 Allergies Allergy/AdvReac Type Severity Reaction Status Date / Time No Known Allergies Allergy Verified 07/30/22 18:18 Review of Systems Review of Systems: Yes all other systems are reviewed and are negative [facility] Past Medical History Medical History Dyslipidemia Essential hypertension Family history of thyroid disease Hypovitaminosis D Left wrist pain Mild asthma Osteoporosis Surgical History History of carpal tunnel release History of removal of cyst History of tubal ligation Meningioma Family History Family History Father Essential hypertension Mother Essential hypertension Maternal Aunt Breast cancer Social History Social History Housing: Apartment Are you a primary overnight caregiver to a significant other at home: No Do you presently have visiting nurse or other home services: No Alcohol intake: never Patient Tobacco Use Status: Never used Tobacco Smoked in Last 30 Days: No e-Cigarette/Vaping Use: Never Used Second Hand Smoke Exposure: No Use of substances other than those prescribed or required for medical reasons: No Advance Directives: No Advance Directives Information Provided: No service: No Current occupational status: unemployed Cognitive needs: No Hearing needs: No Vision needs: No Physical Exam ED Vital Signs: Vital Signs - 24 hr 08/02/22 16:55 08/02/22 23:50 08/03/22 00:05 Temperature 98.0 F Pulse Rate 117 H Respiratory Rate 18 18 18 Blood Pressure 135/63 Pulse Oximetry 98 Oxygen Delivery Method Room Air Room Air Room Air 08/03/22 00:58 08/03/22 00:20 08/03/22 00:35 Temperature Pulse Rate Respiratory Rate 16 17 16 Blood Pressure Pulse Oximetry Oxygen Delivery Method Room Air Room Air Room Air 08/03/22 00:50 Temperature Pulse Rate Respiratory Rate 16 Blood Pressure Pulse Oximetry Oxygen Delivery Method Room Air BMI result Body Mass Index 28.3 Appearance: Alert. Oriented X3. No acute distress. Racing thoughts changing topic frequently Eyes: PERRLA, No Nystagmus ENT: Pharynx normal. Oral Mucosa moist Neck: Normal inspection. Neck supple. CVS: Normal heart rate and rhythm. Pulses normal. Respiratory: No respiratory distress. Equal air entry bilateral, no wheezing/rales/rhonchi Abdomen: Soft and nontender. Bowel sounds are present, no mass palpable, no CVA tenderness Skin: Skin warm and dry. Normal skin color. Normal skin turgor. Extremities: No lower extremity edema. No calf tenderness Neuro: Oriented X 3. No motor deficit. No sensory deficit.No cerebellar signs , cranial nerves II-XII intact MMSE normal Medications Administered Generic Name Dose Route Start Last Admin Trade Name Freq PRN Reason Stop Dose Admin Atorvastatin Calcium 40 mg 08/02/22 21:45 08/02/22 22:07 Atorvastatin Calcium 40 Mg Tablet PO 40 mg BEDTIME AZ Administration Olanzapine 5 mg 08/02/22 21:40 08/02/22 22:07 Olanzapine 5 Mg Tablet PO 5 mg Q12H PRN Administration Agitation Risperidone 2 mg 08/02/22 21:55 08/02/22 22:07 Risperidone 2 Mg Tablet PO 2 mg BEDTIME AZ Administration Discontinued Medications Generic Name Dose Route Start Last Admin Trade Name Freq PRN Reason Stop Dose Admin Diphenhydramine HCl 50 mg 08/02/22 23:44 08/02/22 23:50 Diphenhydramine Hcl 50 Mg/Ml Vial IM 08/02/22 23:45 50 mg ONCE ONE Administration Haloperidol Lactate 5 mg 08/02/22 23:44 08/02/22 23:50 Haloperidol Lactate 5 Mg/Ml Vial IM 08/02/22 23:45 5 mg ONCE ONE Administration Lorazepam 2 mg 08/02/22 23:44 08/02/22 23:50 Lorazepam 2 Mg/Ml Vial IM 08/02/22 23:45 2 mg ONCE ONE Administration Medical Decision Making Medical Decision Making [facility] Narrative: Patient with manic bipolar disorder will get psych consult also get the Neuro consult as this happened acutely Lab Data MDM Lab Attestation statement: I reviewed the patient's lab results. 08/02/22 18:00 08/02/22 18:00 Labs: Lab Results 08/02/22 08/02/22 08/02/22 Range/Units 17:19 17:19 17:19 WBC (4.8-10.8) X10*3/uL RBC (4.20-5.50) X10*6/uL Hgb (12.0-16.0) g/dl Hct (37.0-47.0) % MCV (80.0-98.0) fL MCH (27.0-33.0) pg MCHC (31.0-35.0) g/dl RDW (11.0-16.0) % Plt Count (160-400) X10*3/uL MPV (9.4-12.3) fL Immature Gran % (Auto) (0.0-0.4) % Neut % (Auto) (45-73) % Lymph % (Auto) (20-40) % [place] % (Auto) (2-11) % Eos % (Auto) (0-4) % Baso % (Auto) (0-2) % Lymph # (Auto) (1.2-4.9) X10*3/uL [place] # (Auto) (0.1-1.2) X10*3/uL Eos # (Auto) (0.0-0.4) X10*3/uL Baso # (Auto) (0.0-0.2) X10*3/uL Abs Immat Gran (auto) (0.00-0.03) X10*3/uL Absolute Neuts (auto) (2.0-8.3) x10*3/uL Absolute Nucleated RBC (0.0-0.012) X10*3/uL Nucleated RBC % (auto) (0.0-0.2) /100WBC Sodium (135-145) mmol/L Potassium (3.3-5.1) mmol/L Chloride (96-108) mmol/L Carbon Dioxide (22-29) mmol/L Anion Gap (12-20) BUN (9-16) mg/dL Creatinine (0.5-1.4) mg/dL Estim Creat Clear Calc Estimated GFR Random Glucose (60-115) mg/dL Calcium (8.4-10.2) mg/dL Total Bilirubin (0.0-1.0) mg/dL AST (5-31) U/L ALT (0-31) U/L Alkaline Phosphatase (39-117) U/L Total Protein (6.5-8.0) g/dL Albumin (3.5-5.0) g/dL Urine Color Yellow Urine Appearance Clear Urine pH 7.0 (5.0-9.0) Ur Specific [place] <= 1.005 (1.005-1.025) Urine Protein Negative (Neg-Trace) mg/dL Urine Glucose (UA) Negative (Negative) mg/dL Urine Ketones Negative (Negative) mg/dL Urine Blood Negative (Negative) Urine Nitrite Negative (Negative) Ur Leukocyte Esterase Trace H (Negative) Urine RBC 0-2 (0-2) /HPF Urine WBC 0-5 (0-5) /HPF Ur Squamous Epith Cells 6-10 (0-2) /HPF Urine Bacteria None Seen (None Seen) Hyaline Casts 0-2 (0-2) /LPF Urine Opiates Screen Not Detected (Not Detect) Urine Fentanyl Screen Not Detected (Not Detect) Ur Barbiturates Screen Not Detected (Not Detect) Ur Phencyclidine Scrn Not Detected (Not Detect) Ur Amphetamines Screen Not Detected (Not Detect) U Benzodiazepines Scrn Not Detected (Not Detect) Urine Cocaine Screen Not Detected (Not Detect) U Marijuana (THC) Screen Not Detected (Not Detect) Ethyl Alcohol mg/dL COVID-19 (JAYDEN) Negative (Negative) COVID-19 Clin Com See Note 08/02/22 08/02/22 Range/Units 18:00 18:00 WBC 6.1 (4.8-10.8) X10*3/uL RBC 4.63 (4.20-5.50) X10*6/uL Hgb 13.6 (12.0-16.0) g/dl Hct 41.4 (37.0-47.0) % MCV 89.4 (80.0-98.0) fL MCH 29.4 (27.0-33.0) pg MCHC 32.9 (31.0-35.0) g/dl RDW 13.2 (11.0-16.0) % Plt Count 290 (160-400) X10*3/uL MPV 8.9 L (9.4-12.3) fL Immature Gran % (Auto) 0.2 (0.0-0.4) % Neut % (Auto) 53.7 (45-73) % Lymph % (Auto) 36.5 (20-40) % [place] % (Auto) 7.6 (2-11) % Eos % (Auto) 1.8 (0-4) % Baso % (Auto) 0.2 (0-2) % Lymph # (Auto) 2.2 (1.2-4.9) X10*3/uL [place] # (Auto) 0.5 (0.1-1.2) X10*3/uL Eos # (Auto) 0.1 (0.0-0.4) X10*3/uL Baso # (Auto) 0.0 (0.0-0.2) X10*3/uL Abs Immat Gran (auto) 0.01 (0.00-0.03) X10*3/uL Absolute Neuts (auto) 3.3 (2.0-8.3) x10*3/uL Absolute Nucleated RBC 0.000 (0.0-0.012) X10*3/uL Nucleated RBC % (auto) 0.0 (0.0-0.2) /100WBC Sodium 141 (135-145) mmol/L Potassium 3.9 (3.3-5.1) mmol/L Chloride 105 (96-108) mmol/L Carbon Dioxide 26 (22-29) mmol/L Anion Gap 14 (12-20) BUN 13 (9-16) mg/dL Creatinine 0.86 (0.5-1.4) mg/dL Estim Creat Clear Calc 61.4 Estimated GFR > 60 Random Glucose 138 H (60-115) mg/dL Calcium 9.8 D (8.4-10.2) mg/dL Total Bilirubin 0.6 (0.0-1.0) mg/dL AST 23 (5-31) U/L ALT 25 (0-31) U/L Alkaline Phosphatase 79 (39-117) U/L Total Protein 7.4 (6.5-8.0) g/dL Albumin 4.7 (3.5-5.0) g/dL Urine Color Urine Appearance Urine pH (5.0-9.0) Ur Specific [place] (1.005-1.025) Urine Protein (Neg-Trace) mg/dL Urine Glucose (UA) (Negative) mg/dL Urine Ketones (Negative) mg/dL Urine Blood (Negative) Urine Nitrite (Negative) Ur Leukocyte Esterase (Negative) Urine RBC (0-2) /HPF Urine WBC (0-5) /HPF Ur Squamous Epith Cells (0-2) /HPF Urine Bacteria (None Seen) Hyaline Casts (0-2) /LPF Urine Opiates Screen (Not Detect) Urine Fentanyl Screen (Not Detect) Ur Barbiturates Screen (Not Detect) Ur Phencyclidine Scrn (Not Detect) Ur Amphetamines Screen (Not Detect) U Benzodiazepines Scrn (Not Detect) Urine Cocaine Screen (Not Detect) U Marijuana (THC) Screen (Not Detect) Ethyl Alcohol < 10 mg/dL COVID-19 (JAYDEN) (Negative) COVID-19 Clin Com Discharge Plan Discharge Clinical Impression: Bipolar disorder Patient Disposition: Still a Patient Prescriptions: No Action calcium citrate 200 mg (950 mg) tablet 400 mg PO BID 30 Days Qty: 120 12RF aspirin 81 mg tablet,delayed release (DR/EC) 81 mg PO DAILY 90 Days Qty: 90 3RF atorvastatin 40 mg tablet 40 mg PO BEDTIME 90 Days Qty: 90 3RF alendronate 70 mg tablet 70 mg PO QWEEK Qty: 4 6RF albuterol sulfate 90 mcg/actuation HFA aerosol inhaler 2 puff inhalation Q4-6H PRN (Reason: bronchospasm) 30 Days Qty: 6.7 4RF lisinopril-hydrochlorothiazide 10-12.5 mg tablet 1 tab PO DAILY Qty: 30 6RF albuterol sulfate 0.63 mg/3 mL solution for nebulization 0.63 mg inhalation Q4-6H PRN (Reason: bronchospasm) 30 Days Qty: 75 4RF cholecalciferol (vitamin D3) [Vitamin D3] 25 mcg (1,000 unit) capsule 25 mcg PO DAILY Qty: 90 3RF fluticasone propionate 50 mcg/actuation spray,suspension 2 spray intranasal DAILY PRN (Reason: Dry Nasal Passages) 30 Days Qty: 16 1RF loratadine [Allergy Relief (loratadine)] 10 mg tablet 10 mg PO DAILY PRN (Reason: allergy symptoms) 90 Days Qty: 90 1RF meloxicam 15 mg tablet 15 mg PO DAILY Qty: 14 0RF alprazolam 1 mg tablet 2 mg PO DAILY PRN (Reason: ANXIETY PRIOR TO MRI) Rx Instructions: 40 minutes before MRI levofloxacin 750 mg tablet 750 mg PO DAILY Rx Instructions: TAKE FOR 5 DAYS STARTING 07/29/22 risperidone [Risperdal] 2 mg tablet 2 mg PO BEDTIME 30 Days Qty: 30 0RF olanzapine 5 mg tablet 5 mg PO Q12H PRN (Reason: Agitation) sumatriptan succinate 50 mg tablet 50 mg PO NEEDED PRN (Reason: Migraine Headache) Rx Instructions: may repeat once in 2 hours if needed
[2022-08-02 18:05] LABS: MANUAL DIFF FLAG NO
[2022-08-02 18:08] LABS: Basophils Percent Auto 0.2 % (0-2); Eosinophils Absolute Auto 0.1 X10*3/uL (0.0-0.4); Eosinophils Percent Auto 1.8 % (0-4); Hematocrit 41.4 % (37.0-47.0); Hemoglobin 13.6 g/dl (12.0-16.0); Imm Gran Abs Auto 0.01 X10*3/uL (0.00-0.03); Imm Gran Pct Auto 0.2 % (0.0-0.4); Lymphocytes Absolute Auto 2.2 X10*3/uL (1.2-4.9); Lymphocytes Percent Auto 36.5 % (20-40); Mean Corpuscular HGB Conc 32.9 g/dl (31.0-35.0); Mean Corpuscular Hemoglobin 29.4 pg (27.0-33.0); Mean Corpuscular Volume 89.4 fL (80.0-98.0); Mean Platelet Volume 8.9 fL (9.4-12.3); Monocytes Absolute Auto 0.5 X10*3/uL (0.1-1.2); Monocytes Percent Auto 7.6 % (2-11); Neutrophils Absolute Auto 3.3 x10*3/uL (2.0-8.3); Neutrophils Percent Auto 53.7 % (45-73); Platelet Count 290 X10*3/uL (160-400); Red Blood Count 4.63 X10*6/uL (4.20-5.50); Red Cell Distribution Width 13.2 % (11.0-16.0); White Blood Count 6.1 X10*3/uL (4.8-10.8)
[2022-08-02 18:15] LABS: COVID-19 Test Negative (Negative); IDNOW Serial# 08D9AD1C
[2022-08-02 18:22] LABS: Alanine Aminotransferase 25 U/L (0-31); Albumin Level 4.7 g/dL (3.5-5.0); Alkaline Phosphatase 79 U/L (39-117); Anion Gap 14 (12-20); Aspartate Amino Transferase 23 U/L (5-31); Bilirubin Total 0.6 mg/dL (0.0-1.0); Blood Urea Nitrogen 13 mg/dL (9-16); Calcium 9.8 mg/dL (8.4-10.2); Carbon Dioxide 26 mmol/L (22-29); Chloride 105 mmol/L (96-108); Creatinine Clr Calc Pharmacy 61.4; Estimated Glomerular Filt Rate > 60; Ethanol < 10 mg/dL; Glucose Random 138 mg/dL (60-115); Potassium 3.9 mmol/L (3.3-5.1); Sodium 141 mmol/L (135-145); Total Protein 7.4 g/dL (6.5-8.0)
--- NOTE | 2022-08-02 18:44 | PC.NURSE ---
Pt was seen here 2 days ago for same, altered behavior. Daughter was present and states she will return later on. Pt pacing around unit, was seen by both ED MD and CARE team. Awaiting plan. VSS.
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
[2022-08-02] MEDS: OLANZapine 5 MG TABLET PO (22:07)
[2022-08-02] MEDS: risperiDONE 2 MG TABLET PO (22:07)
[2022-08-02] MEDS: Atorvastatin Calcium 40 MG TABLET PO (22:07)
[2022-08-02 23:50] VITALS: RESP 18
[2022-08-02] MEDS: LORazepam 2 MG/ML VIAL IM (23:50)
[2022-08-02] MEDS: Haloperidol Lactate 5 MG/ML VIAL IM (23:50)
[2022-08-02] MEDS: diphenhydrAMINE HCL 50 MG/ML VIAL IM (23:50)
[2022-08-03] VITALS (9 sets, daily range): BP systolic 93–134; BP diastolic 52–82; PULSE 79–104; RESP 16–20; TEMP 36.3–36.6; O2SAT 96–99
--- NOTE | 2022-08-03 00:13 | PC.NURSE ---
Patient restless, paranoid delusional, disoriented, intrusive, triggering co-patients, non -[id number], provider notified/ordered Ativan 2 mg IM, Haldol 5 mg IM, and Benadryl 50 mg IM/administered as ordered @ 2350/pending effect, patient is on 1:1 for safety, will continue to monitor.
--- NOTE | 2022-08-03 06:22 | PC.NURSE ---
Patient slept through the night, no distress observed/reported, medication compliant, thought content paranoid, thought process tangential, care team disposition pending Neuro-Consult, behavior unpredictable and manic, VSS, will continue to monitor.
[2022-08-03] MEDS: NaPROXEN 500 MG TABLET PO ×2 (09:05→19:42)
[2022-08-03] MEDS: Cholecalciferol (Vitamin D3) 25 MCG TABLET PO (09:05)
[2022-08-03] MEDS: Aspirin Enteric Coated 81 MG TABLET.DR PO (09:05)
[2022-08-03] MEDS: lisinopriL 10 MG TABLET PO (09:13)
[2022-08-03] MEDS: hydroCHLOROthiazide 12.5 MG TABLET PO (09:18)
--- NOTE | 2022-08-03 09:59 | PC.NURSE ---
Left msg. for MRI
--- NOTE | 2022-08-03 10:27 | PC.NURSE ---
Call from [place]. MRI will be done on Friday.
[2022-08-03 11:35] LABS: Folate 15.4 ng/mL (> or = 4.0); Vitamin B12 691 pg/mL (200-900)
--- NOTE | 2022-08-03 12:42 | MHC.CARE ---
Late Entry: CARE Team spoke with Dr. Mckenzie regarding case. Plan for continued further medical work to rule out medical etiologies for Pts presentation.
[2022-08-03] MEDS: diphenhydrAMINE HCL 25 MG CAPSULE 50 MG PO (19:34)
[2022-08-03] MEDS: HaloperidoL 5 MG TABLET PO (19:34)
[2022-08-03] MEDS: OLANZapine 5 MG TABLET PO (19:34)
[2022-08-03] MEDS: LORazepam 1 MG TABLET 2 MG PO (19:34)
[2022-08-03] MEDS: Atorvastatin Calcium 40 MG TABLET PO (19:42)
--- NOTE | 2022-08-04 04:49 | PC.NURSE ---
Patient slept through the night, no distress observed/reported, medication compliant, patient was very intrusive, restless, and non redirectable, provider notified/ordered Haldol 5 mg PO and Ativan 2 mg po, and Benadryl 50 mg po administered as ordered at 1934 with + delayed effect, awaiting Neuro consult and MRI which will be done on 08/05/22, behavior unpredictable, pending care team disposition, will continue to monitor.
[2022-08-04 06:41] VITALS: BP 115/63; PULSE 70; RESP 16; TEMP 36.9; O2SAT 97
[2022-08-04] MEDS: Aspirin Enteric Coated 81 MG TABLET.DR PO (08:19)
[2022-08-04] MEDS: Cholecalciferol (Vitamin D3) 25 MCG TABLET PO (08:20)
[2022-08-04] MEDS: NaPROXEN 500 MG TABLET PO ×2 (08:20→19:53)
[2022-08-04] MEDS: lisinopriL 10 MG TABLET PO (08:22)
[2022-08-04] MEDS: hydroCHLOROthiazide 12.5 MG TABLET PO (08:22)
[2022-08-04 09:03] VITALS: BP 127/92; PULSE 96; RESP 20; TEMP 36.4; O2SAT 96
[2022-08-04] MEDS: OLANZapine 5 MG TABLET PO (15:11)
[2022-08-04] MEDS: OLANZapine 10 MG TABLET PO (15:32)
[2022-08-04] MEDS: risperiDONE 2 MG TABLET PO (19:53)
[2022-08-04] MEDS: Atorvastatin Calcium 40 MG TABLET PO (19:53)
[2022-08-04] MEDS: diphenhydrAMINE HCL 50 MG/ML VIAL IM (19:57)
[2022-08-04] MEDS: OLANZapine 10 MG VIAL IM (19:57)
--- NOTE | 2022-08-04 20:55 | PC.NURSE ---
pt continues to be disruptive, hands on with staff, attempting to leave unit and enter nurses station, continues to reach for items behind nurses station and very touchy with staff. pt also attempting to go into other patients rooms and is not redirectable. per previous RN po meds failed, pt never received the 10mg po Zyprexa as she spit it out and it fell onto the floor per Rachel RN. pt medicated with IM benadryl and IM zyprexa for safety of self and others. pt in room at this time with occasional pacing around her room. continuous monitoring in place. no apparent distress
[2022-08-04 23:16] VITALS: PULSE 88; RESP 16; O2SAT 97
--- NOTE | 2022-08-04 23:17 | PC.NURSE ---
report received from JANY Cuellar pt awake at this time, resting comfortably on stretcher, skin pwd, pt is alert to self, estonian speaking only however not making complete sense. no apparent distress
[2022-08-05] VITALS (13 sets, daily range): BP systolic 119–138; BP diastolic 73–77; PULSE 80–89; RESP 12–20; TEMP 36.1–36.3; O2SAT 94–100
--- NOTE | 2022-08-05 00:53 | PC.NURSE ---
pt walked out to nurses station asking what time it was and if I could call her family. This RN explained to patient that it was too early and that we would call in the morning. pt went back to bed
[2022-08-05] MEDS: LORazepam 2 MG/ML VIAL IM (02:15)
[2022-08-05] MEDS: diphenhydrAMINE HCL 50 MG/ML VIAL IM (02:15)
--- NOTE | 2022-08-05 02:21 | PC.NURSE ---
Pt continuing to walk around, disrupting other patients and attempting to enter other patients rooms. This RN spoke with Dr. Gagnon who verbally ordered IM Ativan 2mg and IM Benadryl 50mg. Security assisted this RN and pod technicians with medicating patient. Pt continuing to walk around room and attempting to walk into other patients room. WILLAM Ferreira now sitting with patient 1:1
[2022-08-05] MEDS: Acetaminophen 325 MG TABLET PO (02:39)
--- NOTE | 2022-08-05 02:48 | PC.NURSE ---
patient being disruptive to the milieu of the pod, WILLAM Ferreira sitting 1:1 with patient. Pt continuing to yell at this time
--- NOTE | 2022-08-05 03:30 | PC.NURSE ---
late entry: Pt has continued to be disruptive throughout the entire evening since this RN took assignment at 11pm 08/04. Pt has been redirected by this RN, WILLAM Ferreira and WILLAM Venegas multiple times back to her room so as to not wake the other patients and keep the ED pod milieu at a calm level. Pt was attempting to enter other patients rooms and the nurses station. Pt touching staff inappropriately, pt failed to be re-directed. This RN spoke with Dr. Gagnon who verbally ordered this RN to give IM Ativan and Benadryl. This RN, security, WILLAM Ferreira and WILLAM Venegas assisted patient with taking IM injection, patient needed to have her arms held to accept medication. This RN explained to patient that she is being given Pt continued to be disruptive for about half an hour after receiving IM injection. Requiring multiple re-directions from staff. Pt being disruptive caused BH 2 and BH 4 to both wake up. WILLAM Ferreira sat with patient to assist with re-direction and calming down. Pt now sleeping in bed at this time, respirations even and unlabored, skin pwd, no apparent distress at this time
[2022-08-05 04:05] LABS: HIV Num 1 5.64 S/CO (0.00-0.99); Syphilis Screen Nonreactive (Nonreactive)
--- NOTE | 2022-08-05 04:39 | PC.NURSE ---
pt sleeping at this time, respirations equal and unlabored, skin pwd, no apparent distress
[2022-08-05 05:14] LABS: HIV AB/AG Nonreactive (Nonreactive); HIV Num 3 0.51 S/CO
--- NOTE | 2022-08-05 06:07 | PC.NURSE ---
patient continues to sleep, occasionally turning back and forth in bed, respirations continue to be even and unlabored, no apparent distress at this time. Continue plan of care for MRI later in the day
--- NOTE | 2022-08-05 08:37 | PC.NURSE ---
pt is sa/o x 3 no sob/huang noted speaks in full sentences. this rn attempted to do the mri intake screening form but the pt is stating that she is clustrophic and needs to have mri done in an open mri. aware.
[2022-08-05] MEDS: NaPROXEN 500 MG TABLET PO ×2 (09:26→19:52)
[2022-08-05] MEDS: Cholecalciferol (Vitamin D3) 25 MCG TABLET PO (09:26)
[2022-08-05] MEDS: lisinopriL 10 MG TABLET PO (09:27)
[2022-08-05] MEDS: Aspirin Enteric Coated 81 MG TABLET.DR PO (09:27)
[2022-08-05] MEDS: hydroCHLOROthiazide 12.5 MG TABLET PO (09:27)
--- NOTE | 2022-08-05 10:41 | PC.NURSE ---
heplock # 20 placed in r ac for ct scan. pt aware of plan of care.
--- NOTE | 2022-08-05 11:35 | PC.NURSE ---
ppt to ct scan via w/c with security and mha .
[2022-08-05] MEDS: iohexoL 350 MG/ML 100 ML INFUS..BTL IV (11:54)
--- NOTE | 2022-08-05 11:54 | PC.NURSE ---
pt return from ct. scan.
--- NOTE | 2022-08-05 11:57 | PC.NURSE ---
toney restrepo/ptay by this rn.
--- NOTE | 2022-08-05 13:24 | PC.NURSE ---
pt's daughter allen ([phone]) called and was updated on pt status.
[2022-08-05] MEDS: OLANZapine 5 MG TABLET PO ×2 (16:17→23:03)
[2022-08-05] MEDS: SUMAtriptan succinate 50 MG TABLET PO (16:28)
[2022-08-05] MEDS: Atorvastatin Calcium 40 MG TABLET PO (19:52)
[2022-08-05] MEDS: risperiDONE 2 MG TABLET PO (19:52)
[2022-08-05] MEDS: LORazepam 1 MG TABLET 2 MG PO (21:36)
[2022-08-05] MEDS: diphenhydrAMINE HCL 25 MG CAPSULE 50 MG PO (21:36)
[2022-08-05] MEDS: HaloperidoL 5 MG TABLET PO (21:36)
--- NOTE | 2022-08-05 22:09 | PC.NURSE ---
Patient extremely intrusive, grabby, hyper-verbal, and restless, provider notified/ordered Ativan 2 mg PO, Benadryl 50 mg, and Haldol 5 mg po @ 3, with pending effect, will continue to monitor.
[2022-08-06] VITALS (8 sets, daily range): BP systolic 114–129; BP diastolic 73–76; PULSE 83–109; RESP 16–19; TEMP 36.4–37; O2SAT 98–100
--- NOTE | 2022-08-06 | ECG_ITS ---
Test Reason : CLEARANCE Blood Pressure : / mmHG Vent. Rate : 088 BPM Atrial Rate : 088 BPM P-R Int : 162 ms QRS Dur : 084 ms QT Int : 364 ms P-R-T Axes : 054 036 052 degrees QTc Int : 440 ms Normal sinus rhythm Normal ECG When compared with ECG of 25-JUL-2022 14:37, Vent. rate has decreased BY 44 BPM Borderline criteria for Inferior infarct are no longer Present Referred By: Roxy Whitfield Electronically Signed By:Willy Mccarty
--- NOTE | 2022-08-06 06:14 | PC.NURSE ---
Patient slept through the night, Olanzapine 5 mg PO administered 2303 with + effect, no distress observed/reported, behavior manic with water obsession, per report patient is medically cleared, new care consult ordered/pending evaluation, medication compliant, VSS, will continue to monitor.
--- NOTE | 2022-08-06 06:59 | PC.NURSE ---
patient appears to remain asleep at present respirations are even and unlabored patient appears in no distress.
[2022-08-06] MEDS: Cholecalciferol (Vitamin D3) 25 MCG TABLET PO (08:48)
[2022-08-06] MEDS: NaPROXEN 500 MG TABLET PO ×2 (08:48→20:03)
[2022-08-06] MEDS: hydroCHLOROthiazide 12.5 MG TABLET PO (08:48)
[2022-08-06] MEDS: lisinopriL 10 MG TABLET PO (08:48)
[2022-08-06] MEDS: Aspirin Enteric Coated 81 MG TABLET.DR PO (08:49)
[2022-08-06] MEDS: OLANZapine 5 MG TABLET PO (09:51)
--- NOTE | 2022-08-06 12:22 | PC.NURSE ---
patient had no observable effect from prior zyprexa dose
[2022-08-06 14:39] LABS: HIV RNA PCR Qn Copies NOT DETECTED copies/mL (NOT DETECTED); HIV RNA PCR Qn Log Copies NOT DETECTED (NOT DETECTED)
--- NOTE | 2022-08-06 15:06 | PC.NURSE ---
This FLOOR COVERING LAYER/L consults with pts attending nurse and reports pt has been highly agitated most of the day (difficult to redirect). Currently the pt is resting comfortably. This documentation writer is unable to engage pt in therapeutic OT session this day.
[2022-08-06] MEDS: LORazepam 1 MG TABLET 2 MG PO (18:55)
[2022-08-06] MEDS: OLANZapine ODT 10 MG TAB.RAPDIS TRANSLINGU (18:55)
[2022-08-06] MEDS: diphenhydrAMINE HCL 50 MG/ML VIAL 25 MG IM (19:50)
[2022-08-06] MEDS: Ziprasidone Mesylate 20 MG VIAL IM (19:50)
[2022-08-06] MEDS: Atorvastatin Calcium 40 MG TABLET PO (20:03)
--- NOTE | 2022-08-07 00:35 | PC.NURSE ---
Patient was extremely loud and disruptive, inappropriately touching other patient, disrobing, intrusive behavior by going into peers room, difficult to redirect, provider notified/ordered Geodone 20 mg IM and Benadryl 25 mg IM/administered as ordered at 1950 with delayed but positive effect, compliant with HS medication, HS Respridone held per provider, patient disposition per care team is inpatient bed search, disposition on hold per Dr. Tom, psychiatrist per care team, per new plan is psych and medical providers will have discussion in the morning to decide the plan of care, patient is currently in bed appears sleeping, respiration +/=/non-labored bilaterally, will continue to monitor.
[2022-08-07 06:18] VITALS: BP 110/69; PULSE 84; RESP 16; TEMP 36.3; O2SAT 99
[2022-08-07] MEDS: hydroCHLOROthiazide 12.5 MG TABLET PO (08:53)
[2022-08-07] MEDS: NaPROXEN 500 MG TABLET PO (08:53)
[2022-08-07] MEDS: OLANZapine 5 MG TABLET PO (08:53)
[2022-08-07] MEDS: Cholecalciferol (Vitamin D3) 25 MCG TABLET PO (08:53)
--- NOTE | 2022-08-07 08:53 | PC.NURSE ---
Pt agitated, PRN Zyprexa given
[2022-08-07] MEDS: lisinopriL 10 MG TABLET PO (08:54)
[2022-08-07] MEDS: Aspirin Enteric Coated 81 MG TABLET.DR PO (08:54)
--- NOTE | 2022-08-07 10:36 | PC.NURSE ---
PRN Zyprexa with no effect on pt. Pt still agitated
[2022-08-07 11:13] LABS: C Reactive Protein 0.14 mg/dL (< or = 0.50)
[2022-08-07] MEDS: LORazepam 1 MG TABLET 2 MG PO ×2 (11:14→16:20)
--- NOTE | 2022-08-07 11:26 | MHC.CARE ---
812 - CARE Team spoke with pt?s daughter Katie ([phone]) who called to inquire as to the status of her Mother as there were questions regarding her inpatient admission to not happening yesterday evening as planned.? CARE Team advised Katie that they would research the case and would call her back. 817 ? CARE Team called pt?s daughter with update and advised her that the admission was cancelled due to suspected delirium. ?She was advised that Psychiatry and Medical will be meeting to come up with a plan for care.? She was advised that at this time, there was no scheduled time for that meeting.
[2022-08-07 11:44] LABS: Erythrocyte Sedimentation Rate 4 MM/HR (0-20)
--- NOTE | 2022-08-07 12:36 | P.CNNE_ITS ---
History of Present Illness Data of Consult Service Date: 08/07/22 Primary Care Provider: Yasmin Martin MD [facility] Reason for consult: altered mental status and manic behavior This is a 62-year-old woman with a history of bipolar disorder recently discharged from [facility] with a UTI is now at admitted to [facility] with manic behavior and altered mentation. All of her lab work is unremarkable. No evidence for UTI. CT scan of the head shows old posterior fossa postsurgical changes from remote meningioma resection. Patient denies any headache fever or chills Review of Systems Review of Systems: Yes all other systems are reviewed and are negative [facility] Past Medical History Medical History Dyslipidemia Essential hypertension Family history of thyroid disease Hypovitaminosis D Left wrist pain Mild asthma Osteoporosis Family History Family History Father Essential hypertension Mother Essential hypertension Maternal Aunt Breast cancer Surgical History Surgical History History of carpal tunnel release History of removal of cyst History of tubal ligation Meningioma Social History Social History Housing: Apartment Are you a primary managed care liaison to a significant other at home: No Do you presently have visiting nurse or other home services: No Alcohol intake: never Patient Tobacco Use Status: Never used Tobacco Smoked in Last 30 Days: No e-Cigarette/Vaping Use: Never Used Second Hand Smoke Exposure: No Use of substances other than those prescribed or required for medical reasons: No Advance Directives: No Advance Directives Information Provided: No Healthcare Proxy: No Guardian: No service: No Current occupational status: unemployed Cognitive needs: No Hearing needs: No Vision needs: No Meds Allergies Allergy/AdvReac Type Severity Reaction Status Date / Time No Known Allergies Allergy Verified 07/30/22 18:18 Active Medications: Current Medications Albuterol Sulfate (Albuterol Sulfate (0.042%) 1.25 Mg/3 Ml Vial.Neb) 0.63 mg INHALE Q4H PRN PRN Reason: bronchospasm Albuterol Sulfate (Albuterol Sulfate 90 Mcg 8 Gm Inhaler) 2 puff INHALE Q4H PRN PRN Reason: bronchospasm Aspirin (Aspirin Enteric Coated 81 Mg Tablet.) 81 mg PO DAILY [facility] Last Admin: 08/07/22 08:54 Dose: 81 mg Atorvastatin Calcium (Atorvastatin Calcium 40 Mg Tablet) 40 mg PO BEDTIME [facility] Last Admin: 08/06/22 20:03 Dose: 40 mg Calcium Carbonate (Calcium Carbonate 500 Mg Tablet) 500 mg PO BID [facility] Last Admin: 08/07/22 08:54 Dose: 500 mg Fluticasone Propionate (Fluticasone Propionate Nasal 16 Gm Wh[place]) 2 spray NOSTRIL-B DAILY PRN PRN Reason: Dry Nasal Passages Hydrochlorothiazide (Hydrochlorothiazide 12.5 Mg Tablet) 12.5 mg PO DAILY [facility] Last Admin: 08/07/22 08:53 Dose: 12.5 mg Lisinopril (Lisinopril 10 Mg Tablet) 10 mg PO DAILY [facility] Last Admin: 08/07/22 08:54 Dose: 10 mg Loratadine (Loratadine 10 Mg Tablet) 10 mg PO DAILY PRN PRN Reason: allergy symptoms Lorazepam (Lorazepam 1 Mg Tablet) 2 mg PO TID PRN PRN Reason: agitation/anxiety Last Admin: 08/07/22 11:14 Dose: 2 mg Naproxen (Naproxen 500 Mg Tablet) 500 mg PO BID [facility] Last Admin: 08/07/22 08:53 Dose: 500 mg Olanzapine (Olanzapine 5 Mg Tablet) 5 mg PO Q12H PRN PRN Reason: Agitation Last Admin: 08/07/22 08:53 Dose: 5 mg Risperidone (Risperidone 2 Mg Tablet) 2 mg PO BEDTIME [facility] Last Admin: 08/06/22 20:04 Dose: Not Given Sumatriptan Succinate (Sumatriptan Succinate 50 Mg Tablet) 50 mg PO DAILY PRN PRN Reason: Migraine Headache Last Admin: 08/05/22 16:28 Dose: 50 mg Vitamin D (Cholecalciferol (Vitamin D3) 25 Mcg Tablet) 25 mcg PO DAILY [facility] Last Admin: 08/07/22 08:53 Dose: 25 mcg Home Medications Medication Instructions Recorded Confirmed Last Taken Type sumatriptan succinate 50 mg tablet 50 mg PO NEEDED PRN Migraine 12/26/21 08/02/22 Unknown History Headache olanzapine 5 mg tablet 5 mg PO Q12H PRN Agitation 07/30/22 08/02/22 Unknown History alprazolam 1 mg tablet 2 mg PO DAILY PRN ANXIETY PRIOR TO 07/31/22 08/02/22 Unknown History MRI levofloxacin 750 mg tablet 750 mg PO DAILY 07/31/22 08/02/22 Unknown History Physical Exam Vital Signs: Vital Signs: Last Vital Signs Temp 97.3 F 08/07/22 06:18 Pulse 84 08/07/22 06:18 Resp 16 08/07/22 06:18 BP 110/69 08/07/22 06:18 Pulse Ox 99 08/07/22 06:18 O2 Del Method Room Air 08/07/22 06:18 BMI result Body Mass Index 28.3 Neuro: Other: Patient is hyperactive and manic pox constantly.. Nerves II through XII are normal. Muscle tone and strength norrmal in all 4 extremities. Follows commands carries on conversations. Neck is supple gait and coordination normal Results Labs 08/02/22 18:00 08/02/22 18:00 Assessment and Plan (1) Manic disorder: Status: Acute This appears to be primarily psychiaatric problem. I see no signs of enceph alopathy or delirium at this time. Labs and CT scan of the head are unremarkable. She needs psychiatric evaluation and treatment. EEG can be ordered but it's unclear if she will be cooperative with that Time Spent With Patient Time: Total time managing care of this patient today ____ minutes. Procedures Date of Service Date of Service: 08/07/22
--- NOTE | 2022-08-07 12:37 | PC.NURSE ---
Neuro MD bedside.
--- NOTE | 2022-08-07 15:02 | PC.NURSE ---
Pt receptive to OT intervention this day. Pt presents confused with mild agitation and pressured speech. Pt excepts and benefits from dementia doll provided as noted by immediately holding baby and positively interaction observed. Consult with pts attending nurse and POD staff and report pt had been agitated prior to OT tx.
--- NOTE | 2022-08-07 16:15 | PC.NURSE ---
Pt increased agitation, touching other patients, going into other patients rooms, getting. Ativan order TID. Another dose given, MD aware.
[2022-08-07 16:44] VITALS: BP 112/67; PULSE 98; RESP 16; TEMP 36.2; O2SAT 98
--- NOTE | 2022-08-07 17:37 | PC.NURSE ---
Ativan IM given to pt per Psych MD order for diagnostic purposes . Prior MD made aware of other PO Ativan doses given today which she agreed to still give the IM dose.
[2022-08-07] MEDS: LORazepam 2 MG/ML VIAL IM (17:39)
[2022-08-07 22:00] VITALS: BP 126/74; PULSE 74; RESP 16; TEMP 36.8; O2SAT 98; BMI 28.3
[2022-08-07] MEDS: risperiDONE 2 MG TABLET PO (22:30)
[2022-08-07] MEDS: Atorvastatin Calcium 40 MG TABLET PO (22:30)
--- NOTE | 2022-08-07 22:54 | PC.ADMIT ---
Addendum entered by Maya Colón 08/07/22 22:58: Petra was admitted to the unit from the ER via at 2150. Covid test negative on 08/02/22. Admitted on a 12B. Reason for admit is increased confusion, disorganized, restlessness, racing thoughts and hyperverbal. Family reports her behavior is not typical. Psychiatric diagnosis Bipolar disorder, medical diagnosis includes HTN; asthma, osteoporosis, dyslipidemia, vitamion D def., history tumor removal 002, cataract removal 2 weeks ago. Petra primary lanuage is sammarinese, requires an director erp. She is alert to self, oriented her to location/unit/room, ad-jennifer, independent with ADLs, denies SI/AVH/SIB, reports feeling safe. Prescribed HS meds given without problems. Admission was unable to complete as she is confused with non sensible responses per director erp. 15 min unit safety observation in place. Original Note: Petra was admitted to the unit from the ER via at 2150. Covid test negative on 08/02/22. Reason for admit is increased confusion, disorganized, restlessness, racing thoughts and hyperverbal. Family reports her behavior is not typical. Psychiatric diagnosis Bipolar disorder, medical diagnosis includes
[2022-08-08 07:00] VITALS: BMI 29.6
[2022-08-08 08:49] VITALS: BP 112/78; PULSE 94; RESP 18; TEMP 36.3
[2022-08-08] MEDS: Cholecalciferol (Vitamin D3) 25 MCG TABLET PO (09:00)
[2022-08-08] MEDS: Aspirin Enteric Coated 81 MG TABLET.DR PO (09:00)
[2022-08-08] MEDS: lisinopriL 10 MG TABLET PO (09:00)
[2022-08-08] MEDS: hydroCHLOROthiazide 12.5 MG TABLET PO (09:00)
[2022-08-08] MEDS: Milk of Magnesia 30 ML ORAL.SUSP PO (09:02)
--- NOTE | 2022-08-08 11:09 | P.HPPS_ITS ---
HPI Date of Service: 08/09/22 Chief Complaint: Dsyregulated Sources of Information: patient interviewed, chart reviewed and crisis/core team assessment reviewed HPI Subjective Notes: Rosenbaum Warning and Section 12B Narrative: Mrs. Cobb is a 62 year-old woman who was brought to [facility] initially on 08/01 due to increase confusions, suspiciousness, poor attention, not sleeping, disorganized behaviors (intrusive to others, grabbing things without clear purpose). Pt has been presenting like this for the past 2 weeks. She was seen at [facility] and treated for UTI discharged on levofloxacin x 5 days- course of tx completed on 08/02. In the ED, utox is negative. CBC unremarkable. CMP without any electrolytes abnormalities. LFT, renal function wnl. TSH also wnl. RPR, HIV also negative. Head CT without any acute findings for mass effect, other acute findings. On the unit, pt presented with poor attention, difficulty maintaining linear conversation, at times losing track of conversation. Grabbing staff and this production underwriter's badge, asking several times same question, whether this production underwriter was from [facility] or [facility]. Pt also presented as somewhat paranoid towards a male staff on the unit, worried that person was targeting her. She denied SI/HI. Past Psychiatric History: Inpatient: none in the past OP: none Medical Evaluation Reviewed: Yes [facility] Medical History Dyslipidemia Essential hypertension Family history of thyroid disease Hypovitaminosis D Left wrist pain Mild asthma Osteoporosis Surgical History History of carpal tunnel release History of removal of cyst History of tubal ligation Meningioma Diagnostics Vital Signs (24Hr): Vital Signs - 24 hr 08/07/22 16:44 08/07/22 22:00 08/08/22 08:49 Temperature 97.2 F 98.2 F 97.4 F Pulse Rate 98 74 94 Respiratory Rate 16 16 18 Blood Pressure 112/67 126/74 112/78 Pulse Oximetry 98 98 Oxygen Delivery Method Room Air Room Air BMI result Body Mass Index 28.3 Labs 08/02/22 18:00 08/02/22 18:00 Labs: Laboratory Results - last 48 hr 08/02/22 08/03/22 08/07/22 18:00 10:41 10:45 ESR C-Reactive Protein Cancelled 0.14 HIV-1 RNA copies/mL NOT DETECTED HIV-1 RNA logcopies/mL NOT DETECTED 08/07/22 10:45 ESR 4 C-Reactive Protein HIV-1 RNA copies/mL HIV-1 RNA logcopies/mL Imaging Radiology Impressions: ITS Impressions Head CT 08/05/22 11:54 IMPRESSION: Stable postoperative changes to the posterior fossa from May 2016. No acute findings. Meds/Allergies Meds Home Medications Medication Instructions Recorded Confirmed Type sumatriptan succinate 50 mg tablet 50 mg PO NEEDED PRN Migraine 12/26/21 08/02/22 History Headache olanzapine 5 mg tablet 5 mg PO Q12H PRN Agitation 07/30/22 08/02/22 History alprazolam 1 mg tablet 2 mg PO DAILY PRN ANXIETY PRIOR TO 07/31/22 08/02/22 History MRI levofloxacin 750 mg tablet 750 mg PO DAILY 07/31/22 08/02/22 History Allergies Allergies Allergy/AdvReac Type Severity Reaction Status Date / Time No Known Allergies Allergy Verified 07/30/22 18:18 Mental Status Exam Mental Status Exam Narrative: Appearance: casual clothing, fair hygiene, in NAD Behavior: difficulty engaging in conversation Psychomotor: psychomotor activation Speech: clear, hyperverbal not pressured rate/rhythm, spontaneous TP: disorganized TC: asking to go home, paranoia towards staff Mood: good Affect: hypervigilant at times, confused SI:denies HI: denies VH/AH: no overt Delusions: none Insight/judgment: impaired x 2. Memory/cog alert, orientation improving in terms of month, date, year and situation and place Assessment & Plan Assessment & Plan (1) Delirium: Status: Acute Code(s): R41.0 - Disorientation, unspecified Plan Ms. Cobb present with s/s of delirum including acute change in mentation, fluctuation in level of orientation, repetitive speech, psychomotor agitation, poor attention, some paranoia and poor sleep. Medical work up has been unremarkable. Pending DIONE, other candelaria no signs of infection, no electrolyte abnormalities, liver and renal function wnl, RPR, HIV neg. Head CT no acute finding- negative for mass effect. Pt with resolving UTI. Her presentation not typical of darcy, despite the disorganized and hyperactive presentation. PLAN 1. Admit to M3, CV, 15 minutes checks for safety 2. continue risperidone, ativan PRN 3. Obtain collateral information 4. Aftercare planning. Patient educated on: diagnosis Reason for continued inpatient stay Substantial Risk for: inability to function Statement Statement: I have reviewed the history and physical and performed a pertinent examination on my patient. No changes have occurred unless specified. If the History and Physical was not performed prior to admission, the Hospitalist's service will be consulted for completing the admission physical. Time Spent With Patient Time: Total time managing care of this patient today ____ minutes.
[2022-08-08] MEDS: risperiDONE 1 MG TABLET PO (12:09)
[2022-08-08 19:58] VITALS: BP 117/63; PULSE 95; RESP 16; TEMP 36.6; O2SAT 96
[2022-08-08] MEDS: risperiDONE 2 MG TABLET PO (21:02)
[2022-08-08] MEDS: Atorvastatin Calcium 40 MG TABLET PO (21:02)
[2022-08-09 08:00] VITALS: BP 137/75; PULSE 88; RESP 16; TEMP 36.4; O2SAT 100
[2022-08-09] MEDS: risperiDONE 1 MG TABLET PO (09:22)
[2022-08-09] MEDS: hydroCHLOROthiazide 12.5 MG TABLET PO (09:22)
[2022-08-09] MEDS: Cholecalciferol (Vitamin D3) 25 MCG TABLET PO (09:23)
[2022-08-09] MEDS: Aspirin Enteric Coated 81 MG TABLET.DR PO (09:23)
[2022-08-09] MEDS: lisinopriL 10 MG TABLET PO (09:23)
--- NOTE | 2022-08-09 14:05 | HO.PSYCHPN ---
Subjective Subjective Reason For Visit: Dsyregulated Diagnostics Vital Signs (24Hr): Vital Signs - 24 hr 08/08/22 19:58 08/09/22 08:00 Temperature 97.8 F 97.6 F Pulse Rate 95 88 Respiratory Rate 16 16 Blood Pressure 117/63 137/75 Pulse Oximetry 96 100 Oxygen Delivery Method Room Air Room Air BMI result Body Mass Index 29.6 Labs 08/02/22 18:00 08/02/22 18:00 Imaging Radiology Impressions: ITS Impressions Head CT 08/05/22 11:54 IMPRESSION: Stable postoperative changes to the posterior fossa from May 2016. No acute findings. Medications Medications Current Medications Al Hydroxide/Mg Hydroxide (Magnesium Hydrox/Alum Hydrox 30 Ml Oral.Susp) 30 ml PO Q6H PRN PRN Reason: Heartburn/Nausea Albuterol Sulfate (Albuterol Sulfate (0.042%) 1.25 Mg/3 Ml Vial.Neb) 0.63 mg INHALE Q4H PRN PRN Reason: bronchospasm Albuterol Sulfate (Albuterol Sulfate 90 Mcg 8 Gm Inhaler) 2 puff INHALE Q4H PRN PRN Reason: bronchospasm Aspirin (Aspirin Enteric Coated 81 Mg Tablet.Dr) 81 mg PO DAILY [facility] Last Admin: 08/09/22 09:23 Dose: 81 mg Atorvastatin Calcium (Atorvastatin Calcium 40 Mg Tablet) 40 mg PO BEDTIME [facility] Last Admin: 08/08/22 21:02 Dose: 40 mg Calcium Carbonate (Calcium Carbonate 500 Mg Tablet) 500 mg PO BID [facility] Last Admin: 08/09/22 09:22 Dose: 500 mg Fluticasone Propionate (Fluticasone Propionate Nasal 16 Gm [place]) 2 spray NOSTRIL-B DAILY PRN PRN Reason: Dry Nasal Passages Hydrochlorothiazide (Hydrochlorothiazide 12.5 Mg Tablet) 12.5 mg PO DAILY [facility] Last Admin: 08/09/22 09:22 Dose: 12.5 mg Lisinopril (Lisinopril 10 Mg Tablet) 10 mg PO DAILY [facility] Last Admin: 08/09/22 09:23 Dose: 10 mg Loratadine (Loratadine 10 Mg Tablet) 10 mg PO DAILY PRN PRN Reason: allergy symptoms Lorazepam (Lorazepam 1 Mg Tablet) 2 mg PO TID PRN PRN Reason: agitation/anxiety Last Admin: 08/07/22 16:20 Dose: 2 mg Magnesium Hydroxide (Milk Of Magnesia 30 Ml Oral.Susp) 30 ml PO DAILY PRN PRN Reason: Constipation Last Admin: 08/08/22 09:02 Dose: 30 ml Olanzapine (Olanzapine 5 Mg Tablet) 5 mg PO Q6H PRN PRN Reason: Agitation Risperidone (Risperidone 2 Mg Tablet) 2 mg PO BEDTIME [place] Last Admin: 08/08/22 21:02 Dose: 2 mg Risperidone (Risperidone 1 Mg Tablet) 1 mg PO DAILY [place] Last Admin: 08/09/22 09:22 Dose: 1 mg Sumatriptan Succinate (Sumatriptan Succinate 50 Mg Tablet) 50 mg PO DAILY PRN PRN Reason: Migraine Headache Last Admin: 08/05/22 16:28 Dose: 50 mg Vitamin D (Cholecalciferol (Vitamin D3) 25 Mcg Tablet) 25 mcg PO DAILY [place] Last Admin: 08/09/22 09:23 Dose: 25 mcg Allergies Allergies Allergy/AdvReac Type Severity Reaction Status Date / Time No Known Allergies Allergy Verified 07/30/22 18:18 Assessment & Plan Assessment & Plan (1) Manic disorder: Status: Acute Code(s): F30.9 - Manic episode, unspecified Assessment and Plan: This appears to be primarily psychiaatric problem. I see no signs of encephalopathy or delirium at this time. Labs and CT scan of the head are unremarkable. She needs psychiatric evaluation and treatment. EEG can be ordered but it's unclear if she will be cooperative with that Time Spent With Patient Time: Total time managing care of this patient today ____ minutes.
--- NOTE | 2022-08-09 16:11 | HO.PSYADMNOT ---
HPI Date of Service: 08/08/22 Chief Complaint: Dsyregulated Sources of Information: patient interviewed, chart reviewed and crisis/core team assessment reviewed HPI Subjective Notes: Rosenbaum Warning and Section 12B [facility] Medical History Dyslipidemia Essential hypertension Family history of thyroid disease Hypovitaminosis D Left wrist pain Mild asthma Osteoporosis Surgical History History of carpal tunnel release History of removal of cyst History of tubal ligation Meningioma Diagnostics Vital Signs (24Hr): Vital Signs - 24 hr 08/08/22 19:58 08/09/22 08:00 Temperature 97.8 F 97.6 F Pulse Rate 95 88 Respiratory Rate 16 16 Blood Pressure 117/63 137/75 Pulse Oximetry 96 100 Oxygen Delivery Method Room Air Room Air BMI result Body Mass Index 29.6 Labs 08/02/22 18:00 08/02/22 18:00 Imaging Radiology Impressions: ITS Impressions Head CT 08/05/22 11:54 IMPRESSION: Stable postoperative changes to the posterior fossa from May 2016. No acute findings. Meds/Allergies Meds Home Medications Medication Instructions Recorded Confirmed Type sumatriptan succinate 50 mg tablet 50 mg PO NEEDED PRN Migraine 12/26/21 08/02/22 History Headache olanzapine 5 mg tablet 5 mg PO Q12H PRN Agitation 07/30/22 08/02/22 History alprazolam 1 mg tablet 2 mg PO DAILY PRN ANXIETY PRIOR TO 07/31/22 08/02/22 History MRI levofloxacin 750 mg tablet 750 mg PO DAILY 07/31/22 08/02/22 History Allergies Allergies Allergy/AdvReac Type Severity Reaction Status Date / Time No Known Allergies Allergy Verified 07/30/22 18:18 Assessment & Plan Statement Statement: I have reviewed the history and physical and performed a pertinent examination on my patient. No changes have occurred unless specified. If the History and Physical was not performed prior to admission, the Hospitalist's service will be consulted for completing the admission physical. Time Spent With Patient Time: Total time managing care of this patient today ____ minutes.
[2022-08-09 18:00] VITALS: BP 120/72; PULSE 92; RESP 18; TEMP 36.4; O2SAT 96
--- NOTE | 2022-08-09 21:07 | P.PNPSI_ITS ---
Subjective Subjective Date of Service: 08/09/22 Reason For Visit: Dsyregulated Subjective Notes: Section 12B Interim History: Pt presents as more organized in behavior and speech in that she is not moving around with poor attentions, more able to follow a linear and coherent conversation. Pt showing improved insight into changes in orientation, confusions, some paranoia. No SI/HI. She reports she hopes to go back home soon but understands that she was not doing well and her daughter were worried about her. Medication Compliance: Yes Side effects from medications: No Attending Groups: Intermittent Mental Status Exam Mental Status Exam Narrative: Appearance: casual clothing, improved hygiene, in NAD Behavior: cooperative, tearful at times Psychomotor: no agitation or retardation noted Speech: clear, regular rate/rhythm, spontaneous TP: linear TC: appropriate concern about changes in mood and confusion, feeling better, hoping to go home soon Mood: better Affect: congruent, tearful at times when realizing she was not doing well SI:denies HI: denies VH/AH: no overt Delusions: none Insight/judgment: improving x 2. Memory/cog alert, orientation improving in terms of month, date, year and situation and place Diagnostics Vital Signs (24Hr): Vital Signs - 24 hr 08/09/22 08:00 Temperature 97.6 F Pulse Rate 88 Respiratory Rate 16 Blood Pressure 137/75 Pulse Oximetry 100 Oxygen Delivery Method Room Air BMI result Body Mass Index 29.6 Labs 08/02/22 18:00 08/02/22 18:00 Imaging Radiology Impressions: ITS Impressions Head CT 08/05/22 11:54 IMPRESSION: Stable postoperative changes to the posterior fossa from May 2016. No acute findings. Medications Medications Current Medications Al Hydroxide/Mg Hydroxide (Magnesium Hydrox/Alum Hydrox 30 Ml Oral.Susp) 30 ml PO Q6H PRN PRN Reason: Heartburn/Nausea Albuterol Sulfate (Albuterol Sulfate (0.042%) 1.25 Mg/3 Ml Vial.Neb) 0.63 mg INHALE Q4H PRN PRN Reason: bronchospasm Albuterol Sulfate (Albuterol Sulfate 90 Mcg 8 Gm Inhaler) 2 puff INHALE Q4H PRN PRN Reason: bronchospasm Aspirin (Aspirin Enteric Coated 81 Mg Tablet.) 81 mg PO DAILY [place] Last Admin: 08/09/22 09:23 Dose: 81 mg Atorvastatin Calcium (Atorvastatin Calcium 40 Mg Tablet) 40 mg PO BEDTIME [facility] Last Admin: 08/08/22 21:02 Dose: 40 mg Calcium Carbonate (Calcium Carbonate 500 Mg Tablet) 500 mg PO BID [facility] Last Admin: 08/09/22 09:22 Dose: 500 mg Fluticasone Propionate (Fluticasone Propionate Nasal 16 Gm [place]) 2 spray NOSTRIL-B DAILY PRN PRN Reason: Dry Nasal Passages Hydrochlorothiazide (Hydrochlorothiazide 12.5 Mg Tablet) 12.5 mg PO DAILY [facility] Last Admin: 08/09/22 09:22 Dose: 12.5 mg Lisinopril (Lisinopril 10 Mg Tablet) 10 mg PO DAILY [facility] Last Admin: 08/09/22 09:23 Dose: 10 mg Loratadine (Loratadine 10 Mg Tablet) 10 mg PO DAILY PRN PRN Reason: allergy symptoms Lorazepam (Lorazepam 1 Mg Tablet) 2 mg PO TID PRN PRN Reason: agitation/anxiety Last Admin: 08/07/22 16:20 Dose: 2 mg Magnesium Hydroxide (Milk Of Magnesia 30 Ml Oral.Susp) 30 ml PO DAILY PRN PRN Reason: Constipation Last Admin: 08/08/22 09:02 Dose: 30 ml Olanzapine (Olanzapine 5 Mg Tablet) 5 mg PO Q6H PRN PRN Reason: Agitation Risperidone (Risperidone 2 Mg Tablet) 2 mg PO BEDTIME [facility] Last Admin: 08/08/22 21:02 Dose: 2 mg Risperidone (Risperidone 1 Mg Tablet) 1 mg PO DAILY [facility] Last Admin: 08/09/22 09:22 Dose: 1 mg Sumatriptan Succinate (Sumatriptan Succinate 50 Mg Tablet) 50 mg PO DAILY PRN PRN Reason: Migraine Headache Last Admin: 08/05/22 16:28 Dose: 50 mg Vitamin D (Cholecalciferol (Vitamin D3) 25 Mcg Tablet) 25 mcg PO DAILY [facility] Last Admin: 08/09/22 09:23 Dose: 25 mcg Allergies Allergies Allergy/AdvReac Type Severity Reaction Status Date / Time No Known Allergies Allergy Verified 07/30/22 18:18 Assessment & Plan Assessment & Plan (1) Delirium: Status: Acute Code(s): R41.0 - Disorientation, unspecified Plan Ms. Cobb has been presenting with symptoms of delirum rather than shelby darcy or psychosis, in that she presented with acute changes in orientation (with fluctuating character), poor attention, confusion, not sleeping, increase psychomotor activation, restless, disorganized/purposeless behavior (grabbing things), some degree of paranoia. medical work up not reveling much to explain delirum other than resolving UTI. 08/09 pt presents as more organized, improved orientation to place, situation, improved attention. continue risperidone 1mg po daily and 2mg po qhs. Patient educated on: diagnosis and medication risk/benefits Informed Consent: understands Reason for continued inpatient stay Substantial Risk for: rapid decompensation Time Spent With Patient Time: Total time managing care of this patient today ____ minutes.
[2022-08-09] MEDS: Atorvastatin Calcium 40 MG TABLET PO (21:47)
[2022-08-09] MEDS: risperiDONE 2 MG TABLET PO (21:48)
[2022-08-10 09:00] VITALS: BP 116/71; PULSE 97; RESP 16; TEMP 36.6; O2SAT 100
[2022-08-10] MEDS: Aspirin Enteric Coated 81 MG TABLET.DR PO (09:07)
[2022-08-10] MEDS: Cholecalciferol (Vitamin D3) 25 MCG TABLET PO (09:07)
[2022-08-10] MEDS: hydroCHLOROthiazide 12.5 MG TABLET PO (09:07)
[2022-08-10] MEDS: lisinopriL 10 MG TABLET PO (09:08)
[2022-08-10] MEDS: risperiDONE 1 MG TABLET PO (09:08)
--- NOTE | 2022-08-10 17:14 | P.PNPSI_ITS ---
Subjective Subjective Date of Service: 08/10/22 Reason For Visit: Dsyregulated Interim History: pt reports she is feeling fine, no longer confused, no longer having AVH. was expecting to discharge tomorrow but was informed no such plan was put in place and she will have to wait until friday when jaelyn returns. per staff, pt reports feeling well, normal. denies AVH. sleeping, eating, toileting well. feels she is getting along well with others, feels safe on the unit. Mental Status Exam Mental Status Exam Narrative: Appearance: casual clothing, good hygiene, in NAD Behavior: cooperative Psychomotor: no agitation or retardation noted Speech: clear, regular rate/rhythm, spontaneous TP: linear TC: feeling better, hoping to go home soon Mood: i feel good. normal. Affect: congruent, non-labile SI: none expressed HI: none expressed VH/AH: denies Delusions: none Insight/judgment: improving x 2. Memory/cog: alert, orientation improving in terms of month, date, year and sit uation and place Diagnostics Vital Signs (24Hr): Vital Signs - 24 hr 08/09/22 18:00 08/10/22 09:00 Temperature 97.6 F 97.9 F Pulse Rate 92 97 Respiratory Rate 18 16 Blood Pressure 120/72 116/71 Pulse Oximetry 96 100 Oxygen Delivery Method Room Air Room Air BMI result Body Mass Index 29.6 Labs 08/02/22 18:00 08/02/22 18:00 Imaging Radiology Impressions: ITS Impressions Head CT 08/05/22 11:54 IMPRESSION: Stable postoperative changes to the posterior fossa from May 2016. No acute findings. Medications Medications Current Medications Al Hydroxide/Mg Hydroxide (Magnesium Hydrox/Alum Hydrox 30 Ml Oral.Susp) 30 ml PO Q6H PRN PRN Reason: Heartburn/Nausea Albuterol Sulfate (Albuterol Sulfate 90 Mcg 8 Gm Inhaler) 2 puff INHALE Q4H PRN PRN Reason: bronchospasm Aspirin (Aspirin Enteric Coated 81 Mg Tablet.) 81 mg PO DAILY [facility] Last Admin: 08/10/22 09:07 Dose: 81 mg Atorvastatin Calcium (Atorvastatin Calcium 40 Mg Tablet) 40 mg PO BEDTIME [facility] Last Admin: 08/09/22 21:47 Dose: 40 mg Calcium Carbonate (Calcium Carbonate 500 Mg Tablet) 500 mg PO BID [facility] Last Admin: 08/10/22 09:07 Dose: 500 mg Fluticasone Propionate (Fluticasone Propionate Nasal 16 Gm [place]) 2 spray NOSTRIL-B DAILY PRN PRN Reason: Dry Nasal Passages Hydrochlorothiazide (Hydrochlorothiazide 12.5 Mg Tablet) 12.5 mg PO DAILY [facility] Last Admin: 08/10/22 09:07 Dose: 12.5 mg Lisinopril (Lisinopril 10 Mg Tablet) 10 mg PO DAILY [facility] Last Admin: 08/10/22 09:08 Dose: 10 mg Loratadine (Loratadine 10 Mg Tablet) 10 mg PO DAILY PRN PRN Reason: allergy symptoms Lorazepam (Lorazepam 1 Mg Tablet) 2 mg PO TID PRN PRN Reason: agitation/anxiety Last Admin: 08/07/22 16:20 Dose: 2 mg Magnesium Hydroxide (Milk Of Magnesia 30 Ml Oral.Susp) 30 ml PO DAILY PRN PRN Reason: Constipation Last Admin: 08/08/22 09:02 Dose: 30 ml Olanzapine (Olanzapine 5 Mg Tablet) 5 mg PO Q6H PRN PRN Reason: Agitation Risperidone (Risperidone 2 Mg Tablet) 2 mg PO BEDTIME [facility] Last Admin: 08/09/22 21:48 Dose: 2 mg Risperidone (Risperidone 1 Mg Tablet) 1 mg PO DAILY [facility] Last Admin: 08/10/22 09:08 Dose: 1 mg Sumatriptan Succinate (Sumatriptan Succinate 50 Mg Tablet) 50 mg PO DAILY PRN PRN Reason: Migraine Headache Last Admin: 08/05/22 16:28 Dose: 50 mg Vitamin D (Cholecalciferol (Vitamin D3) 25 Mcg Tablet) 25 mcg PO DAILY [facility] Last Admin: 08/10/22 09:07 Dose: 25 mcg Allergies Allergies Allergy/AdvReac Type Severity Reaction Status Date / Time No Known Allergies Allergy Verified 07/30/22 18:18 Assessment & Plan Assessment & Plan (1) Delirium: Status: Acute Code(s): R41.0 - Disorientation, unspecified Plan Ms. Cobb present with s/s of delirum including acute change in mentation, fluctuation in level of orientation, repetitive speech, psychomotor agitation, poor attention, some paranoia and poor sleep. Medical work up has been unremarkable. Pending DIONE, other candelaria no signs of infection, no electrolyte abnormalities, liver and renal function wnl, RPR, HIV neg. Head CT no acute finding- negative for mass effect. Pt with resolving UTI. Her presentation not typical of darcy, despite the disorganized and hyperactive presentation. PLAN 1. Admit to M3, CV, 15 minutes checks for safety 2. continue risperidone, ativan PRN 3. Obtain collateral information 4. Aftercare planning. 08/10: delirium resolved. MS WNL. continue current mgmt. plan for discharge early next week. Reason for continued inpatient stay Substantial Risk for: rapid decompensation Time Spent With Patient Time: Total time managing care of this patient today ____ minutes.
[2022-08-10 20:00] VITALS: BP 118/70; PULSE 96; RESP 18; TEMP 36.6; O2SAT 100
[2022-08-10] MEDS: risperiDONE 2 MG TABLET PO (21:29)
[2022-08-10] MEDS: Atorvastatin Calcium 40 MG TABLET PO (21:30)
[2022-08-11 08:00] VITALS: BP 123/75; PULSE 95; RESP 16; TEMP 36.6; O2SAT 98
[2022-08-11] MEDS: risperiDONE 1 MG TABLET PO (08:11)
[2022-08-11] MEDS: lisinopriL 10 MG TABLET PO (08:11)
[2022-08-11] MEDS: Aspirin Enteric Coated 81 MG TABLET.DR PO (08:11)
[2022-08-11] MEDS: Cholecalciferol (Vitamin D3) 25 MCG TABLET PO (08:11)
[2022-08-11] MEDS: hydroCHLOROthiazide 12.5 MG TABLET PO (08:11)
--- NOTE | 2022-08-11 17:20 | P.PNPSI_ITS ---
Subjective Subjective Date of Service: 08/11/22 Reason For Visit: Dsyregulated Interim History: no change in presentation. sleeping, eating, toileting, getting along with others, feeling safe. planning for discharge tomorrow. per staff, improved. sleeping, eating, med-compliant. Mental Status Exam Mental Status Exam Narrative: Appearance: casual clothing, good hygiene, in NAD Behavior: cooperative Psychomotor: no agitation or retardation noted Speech: clear, regular rate/rhythm, spontaneous TP: linear TC: feeling better, hoping to go home soon Mood: i feel good. normal. Affect: congruent, non-labile SI: none expressed HI: none expressed VH/AH: denies Delusions: none Insight/judgment: improving x 2. Memory/cog: alert, orientation improving in terms of month, date, year and situation and place Diagnostics Vital Signs (24Hr): Vital Signs - 24 hr 08/10/22 20:00 08/11/22 08:00 Temperature 97.9 F 97.8 F Pulse Rate 96 95 Respiratory Rate 18 16 Blood Pressure 118/70 123/75 Pulse Oximetry 100 98 Oxygen Delivery Method Room Air Room Air BMI result Body Mass Index 29.6 Labs 08/02/22 18:00 08/02/22 18:00 Imaging Radiology Impressions: ITS Impressions Head CT 08/05/22 11:54 IMPRESSION: Stable postoperative changes to the posterior fossa from May 2016. No acute findings. Medications Medications Current Medications Acetaminophen (Acetaminophen 325 Mg Tablet) 650 mg PO Q6H PRN PRN Reason: Pain, Mild (Pain Scale 1-3) Al Hydroxide/Mg Hydroxide (Magnesium Hydrox/Alum Hydrox 30 Ml Oral.Susp) 30 ml PO Q6H PRN PRN Reason: Heartburn/Nausea Albuterol Sulfate (Albuterol Sulfate 90 Mcg 8 Gm Inhaler) 2 puff INHALE Q4H PRN PRN Reason: bronchospasm Aspirin (Aspirin Enteric Coated 81 Mg Tablet.Dr) 81 mg PO DAILY [facility] 234 BEDS AT [facility] Last Admin: 08/11/22 08:11 Dose: 81 mg Atorvastatin Calcium (Atorvastatin Calcium 40 Mg Tablet) 40 mg PO BEDTIME [facility]S [facility] 234 BEDS AT [facility] Last Admin: 08/10/22 21:30 Dose: 40 mg Calcium Carbonate (Calcium Carbonate 500 Mg Tablet) 500 mg PO BID [facility]S [facility]CLUDE 234 BEDS AT [facility] Last Admin: 08/11/22 08:11 Dose: 500 mg Fluticasone Propionate (Fluticasone Propionate Nasal 16 Gm [place]) 2 spray NOSTRIL-B DAILY PRN PRN Reason: Dry Nasal Passages Hydrochlorothiazide (Hydrochlorothiazide 12.5 Mg Tablet) 12.5 mg PO DAILY [facility]S [facility]CLUDE 234 BEDS AT [facility] Last Admin: 08/11/22 08:11 Dose: 12.5 mg Lisinopril (Lisinopril 10 Mg Tablet) 10 mg PO DAILY [facility]CLUDE 234 BEDS AT [facility] Last Admin: 08/11/22 08:11 Dose: 10 mg Loratadine (Loratadine 10 Mg Tablet) 10 mg PO DAILY PRN PRN Reason: allergy symptoms Lorazepam (Lorazepam 1 Mg Tablet) 2 mg PO TID PRN PRN Reason: agitation/anxiety Last Admin: 08/07/22 16:20 Dose: 2 mg Magnesium Hydroxide (Milk Of Magnesia 30 Ml Oral.Susp) 30 ml PO DAILY PRN PRN Reason: Constipation Last Admin: 08/08/22 09:02 Dose: 30 ml Olanzapine (Olanzapine 5 Mg Tablet) 5 mg PO Q6H PRN PRN Reason: Agitation Risperidone (Risperidone 2 Mg Tablet) 2 mg PO BEDTIME [facility]S [facility]CLUDE 234 BEDS AT [facility] Last Admin: 08/10/22 21:29 Dose: 2 mg Risperidone (Risperidone 1 Mg Tablet) 1 mg PO DAILY [facility]S [facility]CLUDE 234 BEDS AT [facility] Last Admin: 08/11/22 08:11 Dose: 1 mg Sumatriptan Succinate (Sumatriptan Succinate 50 Mg Tablet) 50 mg PO DAILY PRN PRN Reason: Migraine Headache Last Admin: 08/05/22 16:28 Dose: 50 mg Vitamin D (Cholecalciferol (Vitamin D3) 25 Mcg Tablet) 25 mcg PO DAILY [facility]S [facility]CLUDE 234 BEDS AT [facility] Last Admin: 08/11/22 08:11 Dose: 25 mcg Allergies Allergies Allergy/AdvReac Type Severity Reaction Status Date / Time No Known Allergies Allergy Verified 07/30/22 18:18 Assessment & Plan Assessment & Plan (1) Delirium: Status: Acute Code(s): R41.0 - Disorientation, unspecified Plan Ms. Cobb present with s/s of delirum including acute change in mentation, fluctuation in level of orientation, repetitive speech, psychomotor agitation, poor attention, some paranoia and poor sleep. Medical work up has been unremarkable. Pending DIONE, other candelaria no signs of infection, no electrolyte abnormalities, liver and renal function wnl, RPR, HIV neg. Head CT no acute finding- negative for mass effect. Pt with resolving UTI. Her presentation not typical of darcy, despite the disorganized and hyperactive presentation. PLAN 1. Admit to M3, CV, 15 minutes checks for safety 2. continue risperidone, ativan PRN 3. Obtain collateral information 4. Aftercare planning. 08/10: delirium resolved. MS WNL. continue current mgmt. plan for discharge early next week. 08/11: delirium resolved. MS WNL. continue current mgmt. plan for discharge tomorrow. Reason for continued inpatient stay Substantial Risk for: stable for discharge Time Spent With Patient Time: Total time managing care of this patient today ____ minutes.
[2022-08-11 19:00] VITALS: BP 112/65; PULSE 94; RESP 16; TEMP 36.9; O2SAT 100
[2022-08-11] MEDS: Atorvastatin Calcium 40 MG TABLET PO (20:43)
[2022-08-11] MEDS: risperiDONE 2 MG TABLET PO (20:43)
[2022-08-12 08:40] VITALS: BP 133/69; PULSE 85; RESP 18; TEMP 36.6; O2SAT 95
[2022-08-12] MEDS: Cholecalciferol (Vitamin D3) 25 MCG TABLET PO (08:46)
[2022-08-12] MEDS: Aspirin Enteric Coated 81 MG TABLET.DR PO (08:46)
[2022-08-12] MEDS: risperiDONE 1 MG TABLET PO (08:47)
[2022-08-12] MEDS: hydroCHLOROthiazide 12.5 MG TABLET PO (08:47)
[2022-08-12] MEDS: lisinopriL 10 MG TABLET PO (08:47)
[2022-08-12 10:28] LABS: Anti Nuclear Antibody Screen NEGATIVE (NEGATIVE)
--- NOTE | 2022-08-12 10:56 | PM.PSYDC ---
DS: Providers Provider Date of Service: 08/12/22 Date of admission: 08/07/22 20:52 Primary care physician: Yasmin Martin MD DS: Diagnosis Discharge Diagnosis (1) Delirium: Status: Acute DS: Medications Discharge Medications Home Medications: Home Medications Medication Instructions Recorded Confirmed sumatriptan succinate 50 mg tablet 50 mg PO NEEDED PRN Migraine 12/26/21 08/02/22 Headache Previous Rx's Medication Instructions Recorded calcium citrate 200 mg (950 mg) 400 mg PO BID 30 days #120 tabs 11/08/21 tablet aspirin 81 mg tablet,delayed 81 mg PO DAILY 90 days #90 tabs 01/08/22 release atorvastatin 40 mg tablet 40 mg PO BEDTIME 90 days #90 tabs 01/08/22 alendronate 70 mg tablet 70 mg PO QWEEK #4 tabs 01/30/22 albuterol sulfate 90 mcg/actuation 2 puff inhalation Q4-6H PRN 02/27/22 aerosol inhaler bronchospasm 30 days #6.7 grams lisinopril 10 1 tab PO DAILY #30 tabs 04/08/22 mg-hydrochlorothiazide 12.5 mg tablet albuterol sulfate 0.63 mg/3 mL 0.63 mg (3 mL) inhalation Q4-6H 05/28/22 solution for nebulization PRN bronchospasm 30 days #75 mL cholecalciferol (vitamin D3) 25 25 mcg PO DAILY #90 caps 06/17/22 mcg (1,000 unit) capsule (Vitamin D3) fluticasone propionate 50 2 spray intranasal DAILY PRN Dry 07/16/22 mcg/actuation nasal Nasal Passages 30 days #16 grams spray,suspension meloxicam 15 mg tablet 15 mg PO DAILY #14 tabs 07/25/22 loratadine 10 mg tablet 10 mg PO DAILY PRN allergy 08/12/22 symptoms #30 tabs Mental Status Exam Mental Status Exam Narrative: Appearance: casual clothing, good hygiene, in NAD Behavior: cooperative Psychomotor: no agitation or retardation noted Speech: clear, regular rate/rhythm, spontaneous TP: linear TC: feeling better, hoping to go home soon Mood: i feel good. normal. Affect: congruent, non-labile SI: none expressed HI: none expressed VH/AH: denies Delusions: none Insight/judgment: improving x 2. Memory/cog: alert, orientation improving in terms of month, date, year and situation and place Data Data Completed and Pending Completed studies during hospitalization [Text1]: 08/02/22 08/03/22 08/07/22 18:00 10:41 10:45 ESR C-Reactive Protein Cancelled YASMIN Screen NEGATIVE YASMIN Titer Pending YASMIN Titer 2 Pending YASMIN Titer 3 Pending YASMIN Pattern Pending YASMIN Pattern 2 Pending YASMIN Pattern 3 Pending HIV-1 RNA copies/mL NOT DETECTED HIV-1 RNA logcopies/mL NOT DETECTED 08/07/22 08/07/22 10:45 10:45 ESR 4 C-Reactive Protein 0.14 YASMIN Screen YASMIN Titer YASMIN Titer 2 YASMIN Titer 3 YASMIN Pattern YASMIN Pattern 2 YASMIN Pattern 3 HIV-1 RNA copies/mL HIV-1 RNA logcopies/mL Imaging Diagnostic Imaging Impressions Head CT 08/05/22 11:54 IMPRESSION: Stable postoperative changes to the posterior fossa from May 2016. No acute findings. DS: Summary Hospital Course Hospital Course: [place] [address] Psychiatry Admission Note (In) Signed Patient: Petra Sierra MR#: [id number] : 1960 Acct:[id number] Age/Sex: 62 / F Loc: .[id number] 326-2 ?? ? Attending Dr: Roxy Whitfield cc: Jerzy Pruett MD; Roxy Whitfield ~ HPI Date of Service: 08/09/22 Chief Complaint: Dsyregulated Sources of Information: patient interviewed, chart reviewed and crisis/core team assessment reviewed HPI Subjective Notes: Rosenbaum Warning and Section 12B Narrative: Mrs. Cobb is a 62 year-old woman who was brought to [facility] ED initially on 08/01 due to increase confusions, suspiciousness, poor attention, not sleeping, disorganized behaviors (intrusive to others, grabbing things without clear purpose). Pt has been presenting like this for the past 2 weeks. She was seen at [facility] and treated for UTI discharged on levofloxacin x 5 days- course of tx completed on 08/02. In the ED, utox is negative. CBC unremarkable. CMP without any electrolytes abnormalities. LFT, renal function wnl. TSH also wnl. RPR, HIV also negative. Head CT without any acute findings for mass effect, other acute findings. On the unit, pt presented with poor attention, difficulty maintaining linear conversation, at times losing track of conversation. Grabbing staff and this technical document writer's badge, asking several times same question, whether this technical document writer was from [facility] or [facility]. Pt also presented as somewhat paranoid towards a male staff on the unit, worried that person was targeting her. She denied SI/HI. Past Psychiatric History: Inpatient: none in the past OP: none Medical Evaluation Reviewed: Yes HOSPITAL COURSE On the unit, pt was admitted on a sect 12b. She was started on low dose risperidone. She was also given ativan for restlessness. Her orientation gradually improved. She did not appear internally preoccupied. Her signs of delirum cleared and she went back to her usual self. At time of discharged she was able to show increased insight into events leading to this admission and confusion she experience. Her presentation is consistent with delirium and less likely as symptoms of mental illness. Status at Discharge Cognitive/behavioral status at discharge: Pt alert, oriented x 4. No signs delirium. Her thought process is linear, not hyperverbal. Her attention much improved. No overt psychosis or delusions. Her thought content is logical and appropriate to situation. No signs of aggression towards self or others. Functional status at discharge: independent ambulation Overall status at discharge: patient is progressing back to baseline Time Spent with Patient Time attestation: Total time managing care of this patient today ____ minutes. Discharge Plan Discharge Anticipated Discharge Date/Time: 08/12/22 10:50 Patient Disposition: Home, Self-Care Discharge Diagnosis: delirum Referrals: Yasmin Cleaning MD [Primary Care Provider] - 1 Week (Provider will give patient a call with appointment date and time ) Discharge Medications: New loratadine 10 mg Tablet 10 mg PO DAILY PRN (Reason: allergy symptoms) Qty: 30 0RF Continued aspirin 81 mg tablet,delayed release (DR/EC) 81 mg PO DAILY 90 Days Qty: 90 3RF albuterol sulfate 0.63 mg/3 mL solution for nebulization 0.63 mg inhalation Q4-6H PRN (Reason: bronchospasm) 30 Days Qty: 75 4RF meloxicam 15 mg tablet 15 mg PO DAILY Qty: 14 0RF sumatriptan succinate 50 mg tablet 50 mg PO NEEDED PRN (Reason: Migraine Headache) Rx Instructions: may repeat once in 2 hours if needed Discontinued loratadine [Allergy Relief (loratadine)] 10 mg tablet 10 mg PO DAILY PRN (Reason: allergy symptoms) 90 Days Qty: 90 1RF alprazolam 1 mg tablet 2 mg PO DAILY PRN (Reason: ANXIETY PRIOR TO MRI) Rx Instructions: 40 minutes before MRI levofloxacin 750 mg tablet 750 mg PO DAILY Rx Instructions: TAKE FOR 5 DAYS STARTING 07/29/22 risperidone [Risperdal] 2 mg tablet 2 mg PO BEDTIME 30 Days Qty: 30 0RF olanzapine 5 mg tablet 5 mg PO Q12H PRN (Reason: Agitation) No Action albuterol sulfate [Ventolin HFA] 90 mcg/actuation HFA aerosol inhaler 2 puff inhalation Q4-6H PRN (Reason: shortness of breath or wheezing) Qty: 18 4RF alendronate 70 mg tablet 70 mg PO QWEEK Qty: 4 6RF fluticasone propionate 50 mcg/actuation spray,suspension 2 spray intranasal DAILY PRN (Reason: Dry Nasal Passages) 90 Days Qty: 16 1RF lisinopril-hydrochlorothiazide 10-12.5 mg tablet 1 tab PO DAILY Qty: 30 6RF atorvastatin 40 mg tablet 40 mg PO BEDTIME 90 Days Qty: 90 3RF cholecalciferol (vitamin D3) [Vitamin D3] 25 mcg (1,000 unit) capsule 25 mcg PO DAILY Qty: 90 3RF calcium citrate 200 mg (950 mg) tablet 400 mg PO BID 30 Days Qty: 120 12RF Discharge Orders: Discharge Order (Routine); Ordered 08/12/22 Ordered By: Roxy Whitfield Diet: Regular diet Activity on Discharge: As tolerated Stand Alone Forms: Patient Portal Discharge page, Community Support Care Plan Goals: 1. Maintain mood 2. No SI/HI 3. No psychosis or delusions Health Concerns: Follow up with PCP Plan of Treatment: 1. Take medications as prescribed 2. Go to nearest ED or call 911 in event of emergency Assessment: Pt with bright, non labile affect. Attention much improved as well as thought process is linear and coherent. Pt fully oriented to place, month, date, year and situation. No SI/HI. No psychosis or delusions. Pt sleeping and eating well. No residual s/s of delirium. Discharge Date/Time: 08/12/22 11:43
== END 2022-08-12 11:43 | disposition home or self-care (01) | DRG 756 ==
LOC: HO.ED 08-07 11:08 → HO.PADLT16 08-07 21:06
PROVIDERS: Emergency Medicine Emergency Medical Services; Internal Medicine; Admitting Provider Psychiatry & Neurology Psychiatry; Emergency Provider Emergency Medicine; PCP Internal Medicine; Visit Provider Social Worker
DX: F05 Delirium due to known physiological condition (principal); E78.5 Hyperlipidemia, unspecified; I10 Essential (primary) hypertension; N39.0 Urinary tract infection, site not specified; J45.909 Unspecified asthma, uncomplicated; Z20.822 Contact with and (suspected) exposure to COVID-19; Z79.82 Long term (current) use of aspirin; Z79.51 Long term (current) use of inhaled steroids; Z79.899 Other long term (current) drug therapy
CPT/HCPCS: 36415; 70470; 80053; 80307; 81001; 82077; 82607; 82746; 85025; 85652; 86038; 86039; 86140; 86780; 87389; 87536; 87635; 93005; 99285; J1200; J2060; J3486; Q9967; S9485

== ENCOUNTER 2022-12-02 10:50 | Outpatient (AMB) | payer OTHER, SELFPAY ==
[2022-12-02 10:57] VITALS: BP 122/80; BMI 28.7
--- NOTE | 2022-12-02 10:57 | A.OFFPC_ITS ---
Vital Signs 12/02/22 10:57 Height 5 ft 2 in Weight 157 lb BMI 28.7 BP 122/80 Blood Pressure Location Lt brachial Position Sitting Intake Visit Reasons: bp Intake Note: Patient here for a follow up BP Heel Blacker Required: No Accompanied by: Self / Same As Patient Allergies No Known Allergies Allergy (Verified 12/02/22 11:09) Medication List - Last Reconciled 12/02/22 by Yasmin Martin MD albuterol sulfate 0.63 mg (3 mL) inhalation Q4-6H PRN 30 days albuterol sulfate 90 mcg/actuation (Ventolin HFA) 2 puffs inhalation Q4-6H PRN alendronate 70 mg PO QWEEK aspirin 81 mg PO DAILY 90 days atorvastatin 40 mg PO BEDTIME 90 days calcium citrate 400 mg (2 x 200 mg (950 mg)) PO BID 30 days cholecalciferol (vitamin D3) (Vitamin D3) 25 mcg PO DAILY fluticasone propionate 50 mcg/actuation 2 sprays intranasal DAILY PRN 90 days lisinopril-hydrochlorothiazide 10-12.5 mg 1 tab PO DAILY loratadine 10 mg PO DAILY PRN meloxicam 15 mg PO DAILY sumatriptan succinate 50 mg PO NEEDED PRN Tobacco use date assessed: 08/28/22 Dental Screening Dental Screen Date: 12/02/22 Did you have a dental visit in the last 12 months?: Yes Did you have a dental problem in the last 6 months where you did not have access to dental care?: No Was dental information given to patient?: Patient has dentist HPI HPI Comments History of Present Illness Details This is a 62-year-old female with hypertension, dyslipidemia and mild asthma that comes today complaining of occasional lumbar pain relieved by Flexeril as needed. Blood pressure stable. Lipid panel will be order. She use rescue inhaler once a month or less. Denies any chest pain or shortness of breath. Had an episode of confusion and delirium 3 months ago that required psychiatric hospitalization and this has been resolved. No fever, bowel or bladder incontinence. [facility] Medical History Dyslipidemia Essential hypertension Family history of thyroid disease Hypovitaminosis D Left wrist pain Mild asthma Osteoporosis Surgical History History of carpal tunnel release History of removal of cyst History of tubal ligation Meningioma Family History Father Essential hypertension Mother Essential hypertension Maternal Aunt Breast cancer Social History Household Members: None Housing: Apartment Are you a primary field care manager to a significant other at home: No Do you presently have visiting nurse or other home services: No Alcohol intake: never Patient Tobacco Use Status: Never used Tobacco e-Cigarette/Vaping Use: Never Used Second Hand Smoke Exposure: Yes service: No Current occupational status: unemployed Sexual orientation: Straight/Heterosexual Cognitive needs: No Hearing needs: No Vision needs: No Female Reproductive History Menstrual Age of Menarche: 14 Questionnaire Thrive Questionnaire Date Thrive assessed: 06/13/22 AMADO-7 AMB Questionnaire AMADO-7 Date AMADO - 7 assessed: 06/13/22 Source: Developed by Drs. Isidro Crzu, Shannan Benitez, Ryan Aiken and colleagues, with an educational ahmet from [employer]. Review of Systems Const All systems reviewed & are unremarkable except as noted in HPI and below Eyes Reports no additional complaints, Denies change in vision and Denies other visual disturbances Card Denies chest pain at rest, Denies chest pain with activity, Denies edema, Denies irregular heart rhythm, Denies claudication, Denies dyspnea, Denies dyspnea on exertion, Denies orthopnea, Denies paroxysmal nocturnal dyspnea and Denies slow heart rate Resp Denies cough, Denies dyspnea and Denies dyspnea on exertion GI Denies abdominal pain, Denies change in bowel habits, Denies excessive flatus, Denies nausea and Denies vomiting Denies urinary incontinence, Denies urinary hesitancy and Denies urinary urgency Musc Denies abnormal gait, Denies atrophy, Denies deformity and Denies limited range of motion Skin/Breast Denies bleeding lesions, Denies changing lesions and Denies rash Neuro Denies abnormal gait and Denies lack of coordination Physical exam (Primary Care) Vital Signs: Last Vital Signs BP 122/80 12/02/22 10:57 BMI result Body Mass Index 28.7 Tobacco/Smoking Status: Tobacco use Status Tobacco use date assessed 08/28/22 12/02/22 10:59 Patient Tobacco Use Status Never used Tobacco 12/02/22 10:59 e-Cigarette/Vaping Use Never Used 12/02/22 10:59 Thrive Assessment: Date of Thrive Assessment Date Thrive assessed 06/13/22 12/02/22 10:59 Eyes General: appearance normal, both eyes and all related structures Eyelids: Yes eyelids normal Conjunctivae: conjunctivae normal Neck Neck: Yes normal visual inspection and Yes supple Resp Effort & Inspection: normal respiratory effort Auscultation: clear to auscultation bilaterally Cardio Jugular venous distension: no JVD Rate: regular rate Rhythm: regular rhythm Heart sounds: S1 normal heart sound present and S2 normal heart sound present Extrem General: Yes full ROM Assessment and Plan Assessment & Plan (1) Essential hypertension: Code(s): I10 - Essential (primary) hypertension Plan: Continue lisinopril-hydrochlorothiazide. Blood pressure goal is equal or less than 130/80. (2) Dyslipidemia: Code(s): E78.5 - Hyperlipidemia, unspecified Plan: Continue statins. Repeat lipid panel. (3) Mild asthma: Code(s): J45.909 - Unspecified asthma, uncomplicated Plan: Use rescue inhaler as needed. (4) Lumbar pain: Code(s): M54.50 - Low back pain, unspecified Plan: Restart Flexeril as needed. Orders: Orders Vitamin B12 and Folate 4 Months E53.8 - Deficiency of other specified B group vitamins Vitamin D 25-OH Total 4 Months E55.9 - Vitamin D deficiency, unspecified Lipid Panel 4 Months E78.5 - Hyperlipidemia, unspecified Comprehensive [place]. Panel Fast 4 Months M54.50 - Low back pain, unspecified Medications: New cyclobenzaprine 5 mg PO TID PRN 21 tabs 1RF muscle spasm 7 days Changed From sumatriptan succinate may repeat once in 2 hours if needed 50 mg PO NEEDED PRN Migraine Headache To sumatriptan succinate may repeat once in 2 hours if needed 50 mg PO NEEDED PRN 9 tabs 2RF Migraine Headache 30 days Refilled albuterol sulfate 90 mcg/actuation (Ventolin HFA) 2 puffs inhalation Q4-6H PRN 18 grams 4RF shortness of breath or wheezing J45.909 - Unspecified asthma, uncomplicated lisinopril-hydrochlorothiazide 10-12.5 mg 1 tab PO DAILY 30 tabs 6RF atorvastatin 40 mg PO BEDTIME 90 tabs 3RF 90 days cholecalciferol (vitamin D3) (Vitamin D3) 25 mcg PO DAILY 90 caps 3RF calcium citrate 400 mg (2 x 200 mg (950 mg)) PO BID 120 tabs 12RF 30 days M81.0 - Age-related osteoporosis without current pathological fracture meloxicam 15 mg PO DAILY 14 tabs 0RF Discontinued fluticasone propionate 50 mcg/actuation 2 sprays intranasal DAILY 30 days 16 gr ams 1RF alprazolam 40 minutes before MRI 2 mg (2 x 1 mg) PO DAILY 1 day 2 tabs 0RF Coding Level of Care Code Est Pt Level 4 (19372) Diagnoses Essential hypertension I10 Dyslipidemia E78.5 Mild asthma J45.909 Lumbar pain M54.50 Time Spent (min) 23
== END 2022-12-02 11:30 | disposition home or self-care (01) ==
PROVIDERS: Visit Provider Internal Medicine
DX: I10 Essential (primary) hypertension (principal); E78.5 Hyperlipidemia, unspecified; J45.909 Unspecified asthma, uncomplicated; M54.50 Low back pain, unspecified
CPT/HCPCS: 99214

== ENCOUNTER 2022-12-25 10:32 | Outpatient (AMB) | payer OTHER, SELFPAY ==
--- NOTE | 2022-12-25 10:46 | MHC.OFFVIS ---
Intake Vital Signs 12/25/22 10:47 Height 5 ft 2 in Weight 160 lb 0.889 oz BMI 29.3 BP 118/84 Blood Pressure Location Lt brachial Position Sitting Pulse 64 Pulse Source Pulse Oximeter Intake Visit Reasons: f/u osteoporosis Intake Note: Patient present for Osteoporosis follow up visit. Billiard Table Repairer Required: Yes Billiard Table Repairer Language: Bangladeshi Accompanied by: Self / Same As Patient Allergies No Known Allergies Allergy (Verified 12/25/22 10:54) HPI HPI Comments History of Present Illness Details 62 yo female today for fup visit, for osteoporosis . She is here today for follow-up osteoporosis , Her last Prolia shot was 7 mos ago. in Nov ust 2020 Fx last wrist from fall 2017. 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 Denies prior fractures, GERD, negative FH of fractures or osteoporosis, nephrolithiasis, steroids used, smoker, was on anti seizures medications for 4 months 2001, bone deformities. Bisphosphonates use: for 2 years, [id number]. started on September 2015 stopped 01/2016. No problems with alendronate Calcium intake: 500 mg of citrate bid. Vitamin D: 2000 units daily. DEXA 10/12/2019 AP SPINE L1-L4 Current: BMD 0.939 g/cm2, Z-score -1.3, T-score -2.0, osteopenia, 6.9% increase from previous, 5.7% increase from baseline (<5% change is not significant). Prior: BMD 0.878 g/cm2. Baseline: BMD 0.888 g/cm2. LEFT FEMUR, NECK: Current: BMD 0.902 g/cm2, Z-score -0.1, T-score -1.0, normal. Prior: BMD 0.810 g/cm2. Baseline: BMD 0.851 g/cm2. LEFT FEMUR, TOTAL: Current: BMD 1.042 g/cm2, Z-score 0.8, T-score 0.3, normal, 16.3% increase from previous, 18.9% increase from baseline (<5% change is not significant). Prior: BMD 0.896 g/cm2. Baseline: BMD 0.876 g/cm2. Laboratory Tests 05/25/20 05/25/20 06/14/20 07:50 07:50 08:30 Creatinine 0.75 Estimated GFR > 60 Calcium 9.4 Alkaline Phosphata se 55 Albumin 4.2 N-Telopeptide X-li nked 25-OH Vitamin D To mary 42.6 25-Hydroxy Vitamin D2 <4 25-Hydroxy Vitamin D3 41 TSH 1.56 Free T4 1.01 06/14/20 Unknown Creatinine Estimated GFR Calcium Alkaline Phosphata se Albumin N-Telopeptide X-li nked 19 25-OH Vitamin D To mary 25-Hydroxy Vitamin D2 25-Hydroxy Vitamin D3 TSH Free T4 Laboratory Tests 10/03/18 10/03/18 10/03/18 09:10 09:10 Unknown Creatinine Est GFR (Non-Af Am er) Calcium Alkaline Phosphata se Albumin N-Telopeptide X-li nked 15 25-OH Vitamin D To mary 32.7 Free T4 0.98 TSH 3rd Generation 1.00 12/01/19 11:20 Creatinine 0.84 Est GFR (Non-Af Am er) > 60 Calcium 9.9 Alkaline Phosphata se 45 Albumin 4.8 N-Telopeptide X-li nked 25-OH Vitamin D To mary Free T4 TSH 3rd Generation Currently on alendronate 70 mg q.week for 2 mos PFSH Medical History Dyslipidemia Essential hypertension Family history of thyroid disease Hypovitaminosis D Left wrist pain Mild asthma Osteoporosis Surgical History Meningioma History of removal of cyst History of carpal tunnel release History of tubal ligation Family History Father Essential hypertension Mother Essential hypertension Maternal Aunt Breast cancer Social History Household Members: None Housing: Apartment Are you a primary team primary care physician to a significant other at home: No Do you presently have visiting nurse or other home services: No Alcohol intake: never Patient Tobacco Use Status: Never used Tobacco e-Cigarette/Vaping Use: Never Used Second Hand Smoke Exposure: Yes service: No Current occupational status: unemployed Sexual orientation: Straight/Heterosexual Cognitive needs: No Hearing needs: No Vision needs: No Female Reproductive History Menstrual Age of Menarche: 14 Physical Exam Vital Signs: Last Vital Signs Pulse 64 12/25/22 10:47 BP 118/84 12/25/22 10:47 BMI result Body Mass Index 29.3 Assessment & Plan Assessment & Plan (1) Osteoporosis: Code(s): M81.0 - Age-related osteoporosis without current pathological fracture Qualifiers: Osteoporosis type: age-related Presence of current pathological fracture: without current pathological fracture Qualified Code(s): M81.0 - Age-related osteoporosis without current pathological fracture Plan: This is a 61-year-old Banglades[place] female with a history of osteoporosis currently on alendronate 70 mg q.week after being on Prolia for with marked improvement in bone density into the low bone mass range. Secondary workup has been negative Plan is to continue alendronate. Will check urinary NTX to make sure bone turnover has not increased. Will give a total of 1 year of alendronate before drug holiday Orders: Orders Collagen Crosslinks NTX Today M81.0 - Age-related osteoporosis without current pathological fracture Coding Level of Care Code Est Pt Level 3 (89357) Diagnoses Age-related osteoporosis without current pathological fracture M81.0 Osteoporosis type: age-related Presence of current pathological fracture: without current pathological fracture
[2022-12-25 10:47] VITALS: BP 118/84; PULSE 64; BMI 29.3
== END 2022-12-25 11:26 | disposition home or self-care (01) ==
PROVIDERS: PCP Internal Medicine; Visit Provider Internal Medicine Endocrinology, Diabetes & Metabolism
DX: M81.0 Age-related osteoporosis without current pathological fracture (principal)
CPT/HCPCS: 99213

== ENCOUNTER → 2022-12-25 10:32 | Outpatient (BNVA) | payer OTHER, SELFPAY | PROVIDERS: Visit Provider Internal Medicine Endocrinology, Diabetes & Metabolism | DX: M81.0 Age-related osteoporosis without current pathological fracture (principal) | CPT/HCPCS: 99212 ==

== ENCOUNTER 2023-01-08 08:42 | Outpatient (REF) | payer OTHER, SELFPAY ==
[2023-01-16 14:04] LABS: N-Telopeptide 32 (see note); NTXCreaRU 145 mg/dL (20-275)
== END 2023-01-08 08:43 | disposition home or self-care (01) ==
LOC: HO.10HDL 08:42
PROVIDERS: Visit Provider Internal Medicine Endocrinology, Diabetes & Metabolism
DX: M81.0 Age-related osteoporosis without current pathological fracture (principal)
CPT/HCPCS: 82523

== ENCOUNTER 2023-03-26 16:11 | Outpatient (AMB) | payer OTHER, SELFPAY ==
[2023-03-26 16:20] VITALS: BP 130/84; BMI 30.9
--- NOTE | 2023-03-26 16:20 | A.OFFPC_ITS ---
Vital Signs 03/26/23 16:20 Height 5 ft 2 in Weight 169 lb BMI 30.9 BP 130/84 Blood Pressure Location Lt brachial Position Sitting Intake Visit Reasons: PE Intake Note: Patient here for a physical exam Schedule Checker Required: No Accompanied by: Grand Child Allergies No Known Allergies Allergy (Verified 03/26/23 16:32) Medication List - Last Reconciled 03/26/23 by Yasmin Martin MD albuterol sulfate 90 mcg/actuation (Ventolin HFA) 2 puffs inhalation Q4-6H PRN albuterol sulfate 0.63 mg (3 mL) inhalation Q4-6H PRN 30 days alendronate 70 mg PO QWEEK aspirin 81 mg PO DAILY 90 days atorvastatin 40 mg PO BEDTIME 90 days calcium citrate 400 mg (2 x 200 mg (950 mg)) PO BID 30 days cholecalciferol (vitamin D3) (Vitamin D3) 25 mcg PO DAILY cyclobenzaprine 5 mg PO TID PRN 7 days fluticasone propionate 50 mcg/actuation 2 sprays intranasal DAILY PRN 90 days lisinopril-hydrochlorothiazide 10-12.5 mg 1 tab PO DAILY loratadine 10 mg PO DAILY PRN meloxicam 15 mg PO DAILY sumatriptan succinate 50 mg PO NEEDED PRN 30 days Tobacco use date assessed: 08/28/22 HPI HPI Comments History of Present Illness Details This is a 63-year-old female that comes for her physical exam. Last mammogram was 2022 and was normal. Last Pap smear was 2021 and was normal with HPV negative. Last colonoscopy was 2012 and will be refer through open access. No chest pain or shortness of breath. [facility] Medical History Osteoporosis Mild asthma Family history of thyroid disease Left wrist pain Hypovitaminosis D Dyslipidemia Essential hypertension Surgical History Meningioma History of removal of cyst History of carpal tunnel release History of tubal ligation Family History Father Essential hypertension Mother Essential hypertension Maternal Aunt Breast cancer Social History Household Members: None Housing: Apartment Are you a primary home health aide caregiver to a significant other at home: No Do you presently have visiting nurse or other home services: No Alcohol intake: never Patient Tobacco Use Status: Never used Tobacco e-Cigarette/Vaping Use: Never Used Second Hand Smoke Exposure: Yes service: No Current occupational status: unemployed Sexual orientation: Straight/Heterosexual Cognitive needs: No Hearing needs: No Vision needs: No Female Reproductive History Menstrual Age of Menarche: 14 Questionnaire Thrive Questionnaire Date Thrive assessed: 06/13/22 AMADO-7 AMB Questionnaire AMADO-7 Date AMADO - 7 assessed: 06/13/22 Source: Developed by Drs. Isidro Cruz, Shannan Benitez, Ryan Aiken and colleagues, with an educational ahmet from [employer]. Review of Systems Const All systems reviewed & are unremarkable except as noted in HPI and below Eyes Reports no additional complaints, Denies change in vision and Denies other visual disturbances Card Denies chest pain at rest, Denies chest pain with activity, Denies edema, Denies irregular heart rhythm, Denies claudication, Denies dyspnea, Denies dyspnea on exertion, Denies orthopnea, Denies paroxysmal nocturnal dyspnea and Denies slow heart rate Resp Denies cough, Denies dyspnea and Denies dyspnea on exertion GI Denies abdominal pain, Denies change in bowel habits, Denies excessive flatus, Denies nausea and Denies vomiting Denies urinary incontinence, Denies urinary hesitancy and Denies urinary urgency Musc Denies abnormal gait, Denies atrophy, Denies deformity and Denies limited range of motion Skin/Breast Denies bleeding lesions, Denies changing lesions and Denies rash Neuro Denies abnormal gait, Denies behavioral changes, Denies confusion and Denies lack of coordination Psych Denies behavioral changes and Denies confusion Physical exam (Primary Care) Vital Signs: Last Vital Signs BP 130/84 03/26/23 16:20 BMI result Body Mass Index 30.9 Tobacco/Smoking Status: Tobacco use Status Tobacco use date assessed 08/28/22 03/26/23 16:24 Patient Tobacco Use Status Never used Tobacco 03/26/23 16:24 e-Cigarette/Vaping Use Never Used 03/26/23 16:24 Thrive Assessment: Date of Thrive Assessment Date Thrive assessed 06/13/22 03/26/23 16:24 Const General: No confusion Orientation/consciousness: patient oriented x3 and No confusion HENMT Head: Yes normal to inspection, Yes normocephalic and Yes atraumatic Ears: external ears normal Eyes General: appearance normal, both eyes and all related structures Eyelids: Yes eyelids normal Conjunctivae: conjunctivae normal Neck Neck: Yes normal visual inspection and Yes supple Resp Effort & Inspection: normal respiratory effort Auscultation: clear to auscultation bilaterally Cardio Jugular venous distension: no JVD Rate: regular rate Rhythm: regular rhythm Heart sounds: S1 normal heart sound present and S2 normal heart sound present GI Inspection: Yes normal to inspection Palpation (GI): Soft to palpation and nontender Auscultation: normal bowel sounds Skin General skin exam: no rashes or lesions noted Neuro General: patient oriented x3, no focal motor deficits and No confusion Extrem General: Yes full ROM Psych Appearance: grossly normal Office Procedures Flu Questionnaire Does the patient have a severe egg allergy?: No Immunizations flu vacc [id number] 6mos up(PF) 60 mcg(15 mcgx4)/0.5 mL IM syringe Performing Provider: Yasmin Martin MD [facility] Documented (not given) by: CHRISTINE Gary on 03/26/23 16:26 Reason Not Given: Received Previously Assessment and Plan Assessment & Plan (1) Physical exam: Code(s): Z00.00 - Encounter for general adult medical examination without abnormal findings Plan: Repeat in a year. Orders: Orders Lipid Panel Today E78.5 - Hyperlipidemia, unspecified Influenza [id number] Immunization Today Z23 - Encounter for immunization Vitamin D 25-OH Total Today E55.9 - Vitamin D deficiency, unspecified Comprehensive [place]. Panel Fast Today Z00.00 - Encounter for general adult medical examination without abnormal findings Referrals Open Access Screening Colonoscopy Referral Z12.11 - Encounter for screening for malignant neoplasm of colon Coding Level of Care Code Est Pt Prev Care 40-64y(69797) Diagnoses Physical exam Z00.00 Time Spent (min) 31
== END 2023-03-26 16:39 | disposition home or self-care (01) ==
PROVIDERS: PCP Internal Medicine; Visit Provider Internal Medicine
DX: Z00.00 Encounter for general adult medical examination without abnormal findings (principal)
CPT/HCPCS: 99396

== ENCOUNTER 2023-04-30 14:11 | Outpatient (AMB) | payer OTHER, SELFPAY ==
--- NOTE | 2023-04-30 14:19 | A.OFFVIS_ITS ---
Intake Vital Signs 04/30/23 14:20 Height 5 ft 2 in Weight 172 lb 9.951 oz BMI 31.6 BP 120/78 Blood Pressure Location Lt brachial Position Sitting Pulse 86 Pulse Source Pulse Oximeter Intake Visit Reasons: f/u osteoporosis-confirmed Intake Note: Patient present today for Osteoporosis follow up visit. Regional Sales Representative Required: Yes Regional Sales Representative Language: Aviation Project Engineer Name: [facility] medical staff Information Interpreted: non-clinical & clinical Accompanied by: Self / Same As Patient Allergies No Known Allergies Allergy (Verified 04/30/23 14:25) Medication List - Last Reconciled 04/30/23 by Isidro Melo MD albuterol sulfate 90 mcg/actuation (Ventolin HFA) 2 puffs inhalation Q4-6H PRN albuterol sulfate 0.63 mg (3 mL) inhalation Q4-6H PRN 30 days aspirin 81 mg PO DAILY 90 days atorvastatin 40 mg PO BEDTIME 90 days calcium citrate 400 mg (2 x 200 mg (950 mg)) PO BID 30 days cholecalciferol (vitamin D3) (Vitamin D3) 25 mcg PO DAILY cyclobenzaprine 5 mg PO TID PRN 7 days fluticasone propionate 50 mcg/actuation 2 sprays intranasal DAILY PRN 90 days lisinopril-hydrochlorothiazide 10-12.5 mg 1 tab PO DAILY loratadine 10 mg PO DAILY PRN meloxicam 15 mg PO DAILY sumatriptan succinate 50 mg PO NEEDED PRN 30 days HPI HPI Comments History of Present Illness Details 63 yo female today for fup visit, for osteoporosis . She is here today for follow-up osteoporosis , Her last Prolia shot was 7 mos ago. in Nov us2020 Fx last wrist from fall 2017. 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 Denies prior fractures, GERD, negative FH of fractures or osteoporosis, nephrolithiasis, steroids used, smoker, was on anti seizures medications for 4 months 2001, bone deformities. Bisphosphonates use: for 2 years, [id number]. started on September 2015 stopped 01/2016. No problems with alendronate Calcium intake: 500 mg of citrate bid. Vitamin D: 2000 units daily. DEXA 10/12/2019 AP SPINE L1-L4 Current: BMD 0.939 g/cm2, Z-score -1.3, T-score -2.0, osteopenia, 6.9% increase from previous, 5.7% increase from baseline (<5% change is not significant). Prior: BMD 0.878 g/cm2. Baseline: BMD 0.888 g/cm2. LEFT FEMUR, NECK: Current: BMD 0.902 g/cm2, Z-score -0.1, T-score -1.0, normal. Prior: BMD 0.810 g/cm2. Baseline: BMD 0.851 g/cm2. LEFT FEMUR, TOTAL: Current: BMD 1.042 g/cm2, Z-score 0.8, T-score 0.3, normal, 16.3% increase from previous, 18.9% increase from baseline (<5% change is not significant). Prior: BMD 0.896 g/cm2. Baseline: BMD 0.876 g/cm2. Laboratory Tests 05/25/20 05/25/20 06/14/20 07:50 07:50 08:30 Creatinine 0.75 Estimated GFR > 60 Calcium 9.4 Alkaline Phosphata se 55 Albumin 4.2 N-Telopeptide X-li nked 25-OH Vitamin D To mary 42.6 25-Hydroxy Vitamin D2 <4 25-Hydroxy Vitamin D3 41 TSH 1.56 Free T4 1.01 06/14/20 Unknown Creatinine Estimated GFR Calcium Alkaline Phosphata se Albumin N-Telopeptide X-li nked 19 25-OH Vitamin D To mary 25-Hydroxy Vitamin D2 25-Hydroxy Vitamin D3 TSH Free T4 Laboratory Tests 10/03/18 10/03/18 10/03/18 09:10 09:10 Unknown Creatinine Est GFR (Non-Af Am er) Calcium Alkaline Phosphata se Albumin N-Telopeptide X-li nked 15 25-OH Vitamin D To mary 32.7 Free T4 0.98 TSH 3rd Generation 1.00 12/01/19 11:20 Creatinine 0.84 Est GFR (Non-Af Am er) > 60 Calcium 9.9 Alkaline Phosphata se 45 Albumin 4.8 N-Telopeptide X-li nked 25-OH Vitamin D To mary Free T4 TSH 3rd Generation Currently on alendronate 70 mg q.week for 2 mos [facility] Medical History Osteoporosis Mild asthma Family history of thyroid disease Left wrist pain Hypovitaminosis D Dyslipidemia Essential hypertension Surgical History Meningioma History of removal of cyst History of carpal tunnel release History of tubal ligation Family History Father Essential hypertension Mother Essential hypertension Maternal Aunt Breast cancer Social History Household Members: None Housing: Apartment Are you a primary vp care management to a significant other at home: No Do you presently have visiting nurse or other home services: No Alcohol intake: never Patient Tobacco Use Status: Never used Tobacco e-Cigarette/Vaping Use: Never Used Second Hand Smoke Exposure: Yes service: No Current occupational status: unemployed Sexual orientation: Straight/Heterosexual Cognitive needs: No Hearing needs: No Vision needs: No Female Reproductive History Menstrual Age of Menarche: 14 Assessment & Plan Assessment & Plan (1) Osteoporosis: Code(s): M81.0 - Age-related osteoporosis without current pathological fracture Qualifiers: Osteoporosis type: age-related Presence of current pathological fracture: without current pathological fracture Qualified Code(s): M81.0 - Age- related osteoporosis without current pathological fracture Plan: This is a 63-year-old [place] female with a history of osteoporosis currently on alendronate 70 mg q.week after being on Prolia for with marked improvement in bone density into the low bone mass range. Secondary workup has been negative Plan is to discontinue alendronate. Will check urinary NTX to make sure bone turnover has not increased. If bone turnover remains suppressed, we will institute a drug holiday Orders: Orders Collagen Crosslinks NTX Today M81.0 - Age-related osteoporosis without current pathological fracture Medications: Discontinued alendronate Discontinued Reason: Doctor's Order 70 mg PO QWEEK 4 tabs 6RF M81.0 - Age- related osteoporosis without current pathological fracture Coding Level of Care Code Est Pt Level 3 (15224) Diagnoses Age-related osteoporosis without current pathological fracture M81.0 Osteoporosis type: age-related Presence of current pathological fracture: without current pathological fracture
[2023-04-30 14:20] VITALS: BP 120/78; PULSE 86; BMI 31.6
== END 2023-04-30 14:31 | disposition home or self-care (01) ==
PROVIDERS: PCP Internal Medicine; Visit Provider Internal Medicine Endocrinology, Diabetes & Metabolism
DX: M81.0 Age-related osteoporosis without current pathological fracture (principal)
CPT/HCPCS: 99213

== ENCOUNTER → 2023-04-30 14:11 | Outpatient (BNVA) | payer OTHER, SELFPAY | PROVIDERS: PCP Internal Medicine; Visit Provider Internal Medicine Endocrinology, Diabetes & Metabolism | DX: M81.0 Age-related osteoporosis without current pathological fracture (principal); Z79.899 Other long term (current) drug therapy | CPT/HCPCS: 99212 ==

== ENCOUNTER 2023-05-13 12:54 | Outpatient (REF) | payer OTHER, SELFPAY | END 2023-05-13 12:55 | disposition home or self-care (01) | LOC: HO.MAMMO 12:54 | PROVIDERS: PCP Internal Medicine; Visit Provider Internal Medicine | DX: Z12.31 Encounter for screening mammogram for malignant neoplasm of breast (principal) | CPT/HCPCS: 77063; 77067 ==

== ENCOUNTER → 2023-05-13 13:00 | Outpatient (BNV) | payer OTHER, SELFPAY | PROVIDERS: PCP Internal Medicine; Visit Provider Radiology Diagnostic Radiology | DX: Z12.31 Encounter for screening mammogram for malignant neoplasm of breast (principal) | CPT/HCPCS: 77063; 77067 ==

== ENCOUNTER 2023-05-14 08:44 | Outpatient (REF) | payer OTHER, SELFPAY ==
[2023-05-14 10:24] LABS: Alanine Aminotransferase 25 U/L (0-31); Albumin Level 4.3 g/dL (3.5-5.0); Alkaline Phosphatase 75 U/L (39-117); Anion Gap 13 (12-20); Aspartate Amino Transferase 24 U/L (5-31); Bilirubin Total 0.6 mg/dL (0.0-1.0); Blood Urea Nitrogen 11 mg/dL (9-16); Calcium 9.8 mg/dL (8.4-10.2); Carbon Dioxide 28 mmol/L (22-29); Chloride 102 mmol/L (96-108); Cholesterol 162 mg/dL (<200); Estimated Glomerular Filt Rate > 60; Glucose Fasting 101 mg/dL (60-99); HDL Cholesterol 61 mg/dL (>40); LDL Cholesterol Calculated 77 mg/dL (<100); Magnesium 2.1 mg/dL (1.6-2.6); Phosphorus 2.9 mg/dL (2.7-4.5); Sodium 139 mmol/L (135-145); Total Protein 7.8 g/dL (6.5-8.0); Triglycerides 120 mg/dL (<150)
[2023-05-14 10:42] LABS: Thyroid Stimulating Hormone 0.95 uIU/mL (0.32-4.0); Vitamin D 25-OH Total 39.7 ng/mL (>30)
[2023-05-14 10:46] LABS: Folate 13.7 ng/mL (> or = 4.0); Vitamin B12 695 pg/mL (200-900)
[2023-05-21 17:43] LABS: Nicotinamide 44 ng/mL; Vit B3 - Nicotinic Acid <20 ng/mL
== END 2023-05-14 08:45 | disposition home or self-care (01) ==
LOC: HO.LAB 08:44
PROVIDERS: PCP Internal Medicine; Visit Provider Internal Medicine Endocrinology, Diabetes & Metabolism
DX: M54.50 Low back pain, unspecified (principal); R41.0 Disorientation, unspecified; E78.5 Hyperlipidemia, unspecified; E53.8 Deficiency of other specified B group vitamins; E55.9 Vitamin D deficiency, unspecified
CPT/HCPCS: 36415; 80053; 80061; 82306; 82523; 82607; 82746; 83735; 83970; 84100; 84443; 84591

== ENCOUNTER 2023-06-10 10:04 | Outpatient (REF) | payer OTHER, SELFPAY ==
[2023-06-10 17:58] LABS: CT PCR NOT DETECTED (Not Detect.); NG PCR NOT DETECTED (Not Detect.)
== END 2023-06-10 10:05 | disposition home or self-care (01) ==
LOC: HO.LNP 10:04
PROVIDERS: PCP Internal Medicine; Visit Provider Advanced Practice Midwife
DX: Z01.419 Encounter for gynecological examination (general) (routine) without abnormal findings (principal); Z20.2 Contact with and (suspected) exposure to infections with a predominantly sexual mode of transmission
CPT/HCPCS: 0353U; 99396

== ENCOUNTER 2023-06-10 10:04 | Outpatient (AMB) | payer OTHER, SELFPAY ==
[2023-06-10 10:09] VITALS: BP 124/74; BMI 31.5
--- NOTE | 2023-06-10 10:09 | A.OFFVIS_ITS ---
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 She is doing well with no concerns. Attempting to eat a healthy diet with calcium and vitamin D and stays active with exercise. Denies any vaginal dryness or irritation. STI testing offered; she declines bloodwork. Last pap smear; 2021. Last mammogram; 2023. Colonoscopy done age 52. Denies any family history of breast, ovarian or colon cancer. [facility] Medical History Osteoporosis Mild asthma Family history of thyroid disease Left wrist pain Hypovitaminosis D Dyslipidemia Essential hypertension Surgical History Meningioma History of removal of cyst History of carpal tunnel release History of tubal ligation Family History Father Essential hypertension Mother Essential hypertension Maternal Aunt Breast cancer Social History Household Members: Children Housing: Apartment Are you a primary child care education coordinator to a significant other at home: No Do you presently have visiting nurse or other home services: No Alcohol intake: never Patient Tobacco Use Status: Never used Tobacco e-Cigarette/Vaping Use: Never Used Second Hand Smoke Exposure: Yes Patient : No service: No Current occupational status: unemployed Sexual orientation: Straight/Heterosexual Cognitive needs: No Hearing needs: No Vision needs: No Female Reproductive History Menstrual Age of Menarche: 14 Duration of menses: 3-5 days control method: none Total pregnancies: 4 Full term: 4 Number of Living Children: 4 Date of last pap smear: 05/28/21 History of abnormal pap smear: No History of STI: No Date of Mammogram: 05/13/23 History of abnormal mammogram: No Review of Systems Const All systems reviewed & are unremarkable except as noted in HPI and below Reports as per HPI Eyes Reports no additional complaints ENT Reports no additional complaints Card Reports no additional complaints Resp Reports no additional complaints GI Reports as per HPI and Reports no additional complaints Reports as per HPI Musc Reports no additional complaints Skin/Breast Reports as per HPI Neuro Reports no additional complaints Psych Reports no additional complaints Endo Reports no additional complaints Ck/Lymph Reports no additional complaints Aller/Immun Reports no additional complaints Physical Exam Vital Signs: Last Vital Signs BP 124/74 06/10/23 10:09 BMI result Body Mass Index 31.5 Const General: cooperative, healthy appearing, no acute distress, well developed and alert Orientation/consciousness: patient oriented x3 HEENT Head: Yes normal to inspection Eyes General: appearance normal, both eyes and all related structures Neck Neck: Yes normal visual inspection Thyroid: Thyroid normal Chest Chest palpation & inspection: normal inspection of the chest and other (no puckering, dimpling, peau de orange, retraction, discharge, masses) Breast/axilla inspection: normal inspection of the breasts Breast/axilla palpation: normal palpation of the breasts Resp Effort & Inspection: normal respiratory effort GI Inspection: Yes normal to inspection and Yes obesity Palpation (GI): Soft to palpation Rectal Exam - Female: deferred General: Yes bladder normal to palpation External Female Exam: normal external appearance and normal appearance of the urethra Speculum Exam - Vagina: normal appearance of the vagina, normal palpation, normal vaginal discharge, vagina atrophic and other (Rectocele) Speculum Exam - Cervix: normal appearance of the cervix and normal palpation Bimanual exam- vagina & uterus: normal bimanual exam, normal palpation, uterine size normal, bladder normal to palpation, normal palpation and non-tender Bimanual Exam- Adnexa, other: no masses Skin General skin exam: no rashes or lesions noted Rashes: no rashes Neuro General: patient oriented x3 Cognition (Neuro): normal cognition Extrem General: Yes normal to inspection Psych Attitude: cooperative Thought process: Normal thought process present Assessment & Plan Assessment & Plan (1) Encounter for well woman exam with routine gynecological exam: Code(s): Z01.419 - Encounter for gynecological examination (general) (routine) without abnormal findings Plan Discussed: Current recommendations for pap smears per ASCCP guidelines. Breast awareness, periodic self breast exams and yearly mammogram. Maintain a healthy lifestyle, well balanced diet including Calcium 1,200 mg and Vitamin D 600 IU daily, and routine exercise. Contact the office with any postmenopausal bleeding. Patient verbalizes understanding and agrees to the plan of care. She was given opportunity to ask questions and all questions were answered to the best of my ability. RTO in 1 year for annual senior litigation paralegal exam. This note is constructed using voice recognition software. While every effort has been made to ensure accuracy, health club attendant errors may have been included. Orders: Orders CT NG by PCR Today Z20.2 - Contact with and (suspected) exposure to infections with a predominantly sexual mode of transmission Coding Level of Care Code Est Pt Prev Care 40-64y(93613) Diagnoses Encounter for well woman exam with routine gynecological exam Z01.419
== END 2023-06-10 10:49 | disposition home or self-care (01) ==
LOC: HO.HWS 10:05
PROVIDERS: PCP Internal Medicine; Visit Provider Advanced Practice Midwife
DX: Z01.419 Encounter for gynecological examination (general) (routine) without abnormal findings (principal)
CPT/HCPCS: 99396

== ENCOUNTER 2023-07-29 15:10 | Outpatient (AMB) | payer OTHER, SELFPAY ==
--- NOTE | 2023-07-29 15:12 | MHC.OFFVIS ---
Intake Vital Signs 07/29/23 15:24 Height 5 ft 2 in Weight 169 lb 5.04 oz BMI 31.0 BP 120/74 Blood Pressure Location Lt brachial Position Sitting Pulse 79 Pulse Source Pulse Oximeter Intake Visit Reasons: Osteoporosis-lvm Intake Note: Patient presents today for Osteoporosis follow up visit. Tent Finisher Required: Yes Tent Finisher Language: Enterprise Mobility Architect Name: [facility] medical staff Information Interpreted: non-clinical & clinical Accompanied by: Self / Same As Patient Allergies No Known Allergies Allergy (Verified 07/29/23 15:30) HPI HPI Comments History of Present Illness Details 63 yo female today for fup visit, for osteoporosis . She is here today for follow-up osteoporosis , Her last Prolia shot was 7 mos ago. in Nov us2020 Fx last wrist from fall 2017. 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 Denies prior fractures, GERD, negative FH of fractures or osteoporosis, nephrolithiasis, steroids used, smoker, was on anti seizures medications for 4 months 2001, bone deformities. Bisphosphonates use: for 2 years, 5930-5714. started on September 2015 stopped 01/2016. No problems with alendronate Calcium intake: 500 mg of citrate bid. Vitamin D: 2000 units daily. DEXA 10/12/2019 AP SPINE L1-L4 Current: BMD 0.939 g/cm2, Z-score -1.3, T-score -2.0, osteopenia, 6.9% increase from previous, 5.7% increase from baseline (<5% change is not significant). Prior: BMD 0.878 g/cm2. Baseline: BMD 0.888 g/cm2. LEFT FEMUR, NECK: Current: BMD 0.902 g/cm2, Z-score -0.1, T-score -1.0, normal. Prior: BMD 0.810 g/cm2. Baseline: BMD 0.851 g/cm2. LEFT FEMUR, TOTAL: Current: BMD 1.042 g/cm2, Z-score 0.8, T-score 0.3, normal, 16.3% increase from previous, 18.9% increase from baseline (<5% change is not significant). Prior: BMD 0.896 g/cm2. Baseline: BMD 0.876 g/cm2. Laboratory Tests 05/25/20 05/25/20 06/14/20 07:50 07:50 08:30 Creatinine 0.75 Estimated GFR > 60 Calcium 9.4 Alkaline Phosphata se 55 Albumin 4.2 N-Telopeptide X-li nked 25-OH Vitamin D To mary 42.6 25-Hydroxy Vitamin D2 <4 25-Hydroxy Vitamin D3 41 TSH 1.56 Free T4 1.01 06/14/20 Unknown Creatinine Estimated GFR Calcium Alkaline Phosphata se Albumin N-Telopeptide X-li nked 19 25-OH Vitamin D To mary 25-Hydroxy Vitamin D2 25-Hydroxy Vitamin D3 TSH Free T4 Laboratory Tests 10/03/18 10/03/18 10/03/18 09:10 09:10 Unknown Creatinine Est GFR (Non-Af Am er) Calcium Alkaline Phosphata se Albumin N-Telopeptide X-li nked 15 25-OH Vitamin D To mary 32.7 Free T4 0.98 TSH 3rd Generation 1.00 12/01/19 11:20 Creatinine 0.84 Est GFR (Non-Af Am er) > 60 Calcium 9.9 Alkaline Phosphata se 45 Albumin 4.8 N-Telopeptide X-li nked 25-OH Vitamin D To mary Free T4 TSH 3rd Generation Currently off alendronate . Taking calcium and vitamin D [facility] Medical History Osteoporosis Mild asthma Family history of thyroid disease Left wrist pain Hypovitaminosis D Dyslipidemia Essential hypertension Surgical History Meningioma History of removal of cyst History of carpal tunnel release History of tubal ligation Family History Father Essential hypertension Mother Essential hypertension Maternal Aunt Breast cancer Social History Household Members: Children Housing: Apartment Are you a primary interior plant caretaker to a significant other at home: No Do you presently have visiting nurse or other home services: No Alcohol intake: never Patient Tobacco Use Status: Never used Tobacco e-Cigarette/Vaping Use: Never Used Second Hand Smoke Exposure: Yes service: No Current occupational status: unemployed Sexual orientation: Straight/Heterosexual Cognitive needs: No Hearing needs: No Vision needs: No Female Reproductive History Menstrual Age of Menarche: 14 Physical Exam Vital Signs: Last Vital Signs Pulse 79 07/29/23 15:24 BP 120/74 07/29/23 15:24 BMI result Body Mass Index 31.0 Assessment & Plan Assessment & Plan (1) Osteoporosis: Code(s): M81.0 - Age-related osteoporosis without current pathological fracture Qualifiers: Osteoporosis type: age-related Presence of current pathological fracture: without current pathological fracture Qualified Code(s): M81.0 - Age-related osteoporosis without current pathological fracture Plan: This is a 63-year-old [place] female with a history of osteoporosis currently on alendronate 70 mg q.week after being on Prolia for with marked improvement in bone density into the low bone mass range. Secondary workup has been negative Plan is to continue off the alendronate. Will check urinary NTX to make sure bone turnover has not increased. If bone turnover remains suppressed, we will institute a drug holiday Coding Level of Care Code Est Pt Level 3 (40110) Diagnoses Age-related osteoporosis without current pathological fracture M81.0 Osteoporosis type: age-related Presence of current pathological fracture: without current pathological fracture
[2023-07-29 15:24] VITALS: BP 120/74; PULSE 79; BMI 31.0
== END 2023-07-29 16:03 | disposition home or self-care (01) ==
PROVIDERS: PCP Internal Medicine; Visit Provider Internal Medicine Endocrinology, Diabetes & Metabolism
DX: M81.0 Age-related osteoporosis without current pathological fracture (principal)
CPT/HCPCS: 99213

== ENCOUNTER → 2023-07-29 15:10 | Outpatient (BNVA) | payer OTHER, SELFPAY | PROVIDERS: PCP Internal Medicine; Visit Provider Internal Medicine Endocrinology, Diabetes & Metabolism | DX: M81.0 Age-related osteoporosis without current pathological fracture (principal) | CPT/HCPCS: 99212 ==

== ENCOUNTER 2023-08-01 09:15 | Outpatient (REF) | payer OTHER, SELFPAY ==
[2023-08-01 11:16] LABS: Alanine Aminotransferase 30 U/L (0-31); Albumin Level 4.4 g/dL (3.5-5.0); Alkaline Phosphatase 75 U/L (39-117); Anion Gap 11 (12-20); Aspartate Amino Transferase 29 U/L (5-31); Bilirubin Total 0.5 mg/dL (0.0-1.0); Blood Urea Nitrogen 10 mg/dL (9-16); Calcium 9.6 mg/dL (8.4-10.2); Carbon Dioxide 30 mmol/L (22-29); Chloride 102 mmol/L (96-108); Cholesterol 146 mg/dL (<200); Estimated Glomerular Filt Rate > 60; Glucose Fasting 107 mg/dL (60-99); HDL Cholesterol 59 mg/dL (>40); LDL Cholesterol Calculated 70 mg/dL (<100); Potassium 3.8 mmol/L (3.3-5.1); Sodium 139 mmol/L (135-145); Total Protein 7.5 g/dL (6.5-8.0); Triglycerides 88 mg/dL (<150)
[2023-08-01 11:33] LABS: Vitamin D 25-OH Total 35.3 ng/mL (>30)
[2023-08-01 16:57] LABS: Parathyroid Hormone Intact 78.9 pg/mL (8.7-77.1)
[2023-08-01 20:13] LABS: Folate 17.5 ng/mL (> or = 4.0)
[2023-08-03 00:51] LABS: Vitamin B12 787 pg/mL (200-900)
[2023-08-12 15:21] LABS: N-Telopeptide 22; NTXCreaRU 121
== END 2023-08-01 09:16 | disposition home or self-care (01) ==
LOC: HO.LAB 09:15
PROVIDERS: PCP Internal Medicine; Visit Provider Internal Medicine Endocrinology, Diabetes & Metabolism
DX: Z00.00 Encounter for general adult medical examination without abnormal findings (principal); M81.0 Age-related osteoporosis without current pathological fracture; R41.0 Disorientation, unspecified; E78.5 Hyperlipidemia, unspecified; E55.9 Vitamin D deficiency, unspecified; E53.8 Deficiency of other specified B group vitamins
CPT/HCPCS: 36415; 80053; 80061; 82306; 82523; 82607; 82746; 83970

== ENCOUNTER 2023-09-30 10:32 | Outpatient (AMB) | payer OTHER, SELFPAY ==
[2023-09-30 10:34] VITALS: BP 152/90
--- NOTE | 2023-09-30 10:34 | MHC.PC.OV ---
Vital Signs 09/30/23 10:34 09/30/23 11:31 Height 5 ft 2 in Weight 164 lb BMI 30.0 BP 152/90 H 150/90 H Blood Pressure Location Lt brachial Lt brachial Position Sitting Sitting Intake Visit Reasons: bp,lipids Intake Note: Patient here for a follow up BP, lipids Progressive Care Manager Required: No Accompanied by: Grand Child Allergies No Known Allergies Allergy (Verified 09/30/23 10:52) Medication List - Last Reconciled 09/30/23 by Yasmin Martin MD albuterol sulfate 0.63 mg (3 mL) inhalation Q4-6H PRN 30 days albuterol sulfate 90 mcg/actuation (Ventolin HFA) 2 puffs inhalation Q4-6H PRN aspirin 81 mg PO DAILY 90 days atorvastatin 40 mg PO BEDTIME 90 days calcium citrate 400 mg (2 x 200 mg (950 mg)) PO BID 30 days cholecalciferol (vitamin D3) (Vitamin D3) 25 mcg PO DAILY cyclobenzaprine 5 mg PO TID PRN 7 days fluticasone propionate 50 mcg/actuation 2 sprays intranasal DAILY PRN 90 days lisinopril-hydrochlorothiazide 10-12.5 mg 1 tab PO DAILY loratadine 10 mg PO DAILY PRN meloxicam 15 mg PO DAILY sumatriptan succinate 50 mg PO NEEDED PRN 30 days Tobacco use date assessed: 09/30/23 Dental Screening Dental Screen Date: 09/30/23 Did you have a dental visit in the last 12 months?: Yes Did you have a dental problem in the last 6 months where you did not have access to dental care?: No Was dental information given to patient?: Patient has dentist HPI HPI Comments History of Present Illness Details This is a 63-year-old female with hypertension, dyslipidemia, impaired glucose tolerance and mild asthma that comes today for follow-up on her conditions. Blood pressure elevated and will be recheck in 3 weeks by nurse navigator. She did took her medications today. Cholesterol well control. Has elevated fasting blood glucose but denies any polyuria, polydipsia or unintentional weight loss. Use rescue inhaler less than once a month. She has obese with a BMI of 30 and was advised to do diet and exercise to reach BMI goal less than 30. Last colonoscopy was 2012 and will be refer through open access. Last menses was over 10 years ago. Has elevated parathyroid and will be evaluated by Endocrinology next month regarding this matter. [facility] Medical History (Updated 09/30/23 @ 11:33 by Yasmin Martin MD) UTI (urinary tract infection) Hospital discharge follow-up Delirium Acute confusion Osteoporosis Mild asthma Family history of thyroid disease Left wrist pain Hypovitaminosis D Dyslipidemia Essential hypertension Surgical History Meningioma History of removal of cyst History of carpal tunnel release History of tubal ligation Family History Father Essential hypertension Mother Essential hypertension Maternal Aunt Breast cancer Social History Household Members: Children Housing: Apartment Are you a primary director medicare sales to a significant other at home: No Do you presently have visiting nurse or other home services: No Alcohol intake: never Patient Tobacco Use Status: Never used Tobacco e-Cigarette/Vaping Use: Never Used Second Hand Smoke Exposure: Yes service: No Current occupational status: unemployed Sexual orientation: Straight/Heterosexual Cognitive needs: No Hearing needs: No Vision needs: No Female Reproductive History Menstrual Age of Menarche: 14 Questionnaire PHQ-9 Over the last 2 weeks, how often have you been bothered by any of the following problems? 1. Little interest or pleasure in doing things: not at all 2. Feeling down, depressed, or hopeless: not at all 3. Trouble falling or staying asleep, or sleeping too much: not at all 4. Feeling tired or having little energy: not at all 5. Poor appetite or overeating: not at all 6. Feeling bad about yourself - or that you are a failure or have let yourself or your family down: not at all 7. Trouble concentrating on things, such as reading the newspaper or watching television: not at all 8. Moving or speaking so slowly that other people could have noticed. Or the opposite - being so fidgety or restless that you have been moving around a lot more than usual: not at all 9. Thoughts that you would be better off or of hurting yourself in some way: not at all Total score: 0 Depression Screening Interpretation: Negative Depression Screening Done: Yes 28917 - PHQ-9 [facility] Yes Source: Developed by Drs. Isidro Cruz, Ryan Suarez and colleagues, with an educational ahmet from [employer]. Thrive Questionnaire Date Thrive assessed: 06/13/22 AMADO-7 AMB Questionnaire AMADO-7 Date AMADO - 7 assessed: 06/13/22 Feeling nervous, anxious, or on edge: 0 = Not at all Not being able to stop or control worryin = Not at all Worrying too much about different things: 0 = Not at all Trouble relaxin = Not at all Being so restless that it is hard to sit still: 0 = Not at all Becoming easily annoyed or irritable: 0 = Not at all Feeling afraid as if something awful might happen: 0 = Not at all Total AMADO-7 score (0-4 normal; 5-9 mild; 10-14 moderate; 15-21 severe): 0 Source: Developed by Drs. Isidro Cruz, Shannan Benitez, Ryan Aiken and colleagues, with an educational ahmet from [employer]. AMADO-7 Assessment Billing AMADO-7 Assessment Tool: AMADO-7 Assessment 86213 Review of Systems Const All systems reviewed & are unremarkable except as noted in HPI and below Card Denies chest pain at rest, Denies chest pain with activity, Denies edema, Denies irregular heart rhythm, Denies claudication, Denies dyspnea, Denies dyspnea on exertion, Denies orthopnea, Denies paroxysmal nocturnal dyspnea and Denies slow heart rate Resp Denies cough, Denies dyspnea and Denies dyspnea on exertion GI Denies abdominal pain, Denies change in bowel habits, Denies excessive flatus, Denies nausea and Denies vomiting Denies urinary incontinence, Denies urinary hesitancy and Denies urinary urgency Physical exam (Primary Care) Vital Signs: Last Vital Signs BP 152/90 H 09/30/23 10:34 Care Plan Goal for BP management: Recheck blood pressure with nurse navigator in 3 weeks BMI result Body Mass Index 30.0 BMI Assessment/Plan discussion: High BMI High, discussed plan: lifestyle, weight reduction and dietary Tobacco/Smoking Status: Tobacco use Status Tobacco use date assessed 09/30/23 09/30/23 10:40 Patient Tobacco Use Status Never used Tobacco 09/30/23 10:40 e-Cigarette/Vaping Use Never Used 09/30/23 10:40 Depression Screening Interpretation: Negative Thrive Assessment: Date of Thrive Assessment Date Thrive assessed 06/13/22 09/30/23 10:40 Neck Neck: Yes normal visual inspection and Yes supple Resp Effort & Inspection: normal respiratory effort Auscultation: clear to auscultation bilaterally Cardio Jugular venous distension: no JVD Rate: regular rate Rhythm: regular rhythm Heart sounds: S1 normal heart sound present and S2 normal heart sound present Extrem General: Yes full ROM Assessment and Plan Assessment & Plan (1) Essential hypertension: Code(s): I10 - Essential (primary) hypertension Plan: Continue lisinopril-hydrochlorothiazide. Recheck blood pressure with nurse navigator in 3 weeks. Blood pressure goal is equal or less than 130/80. (2) Dyslipidemia: Code(s): E78.5 - Hyperlipidemia, unspecified Plan: Continue statins. (3) Mild asthma: Code(s): J45.909 - Unspecified asthma, uncomplicated Qualifiers: Asthma persistence: persistent Asthma complication type: uncomplicated Qualified Code(s): J45.30 - Mild persistent asthma, uncomplicated Plan: Use rescue inhaler as needed. (4) Impaired glucose tolerance: Code(s): R73.02 - Impaired glucose tolerance (oral) Plan: Repeat fasting blood glucose. (5) Hyperparathyroidism: Code(s): E21.3 - Hyperparathyroidism, unspecified Plan: Follow-up with endocrinology. Orders: Orders XR DEXA axial skeleton Today N95.9 - Unspecified menopausal and perimenopausal disorder Referrals Open Access Screening Colonoscopy Referral Z12.11 - Encounter for screening for malignant neoplasm of colon Coding Level of Care Code Est Pt Level 4 (51519) Complex EM visit Add On G2211 Diagnoses Essential hypertension I10 Dyslipidemia E78.5 Mild persistent asthma without complication J45.30 Asthma persistence: persistent Asthma complication type: uncomplicated Impaired glucose tolerance R73.02 Hyperparathyroidism E21.3 Additional Codes AMADO-7 Assessment Billing - AMADO-7 Assessment Tool: AMADO-7 Assessment 40292 ([id number]) Time Spent (min) 23
[2023-09-30 11:31] VITALS: BP 150/90
== END 2023-09-30 11:04 | disposition home or self-care (01) ==
PROVIDERS: PCP Internal Medicine; Visit Provider Internal Medicine
DX: I10 Essential (primary) hypertension (principal); J45.30 Mild persistent asthma, uncomplicated; R73.02 Impaired glucose tolerance (oral); E21.3 Hyperparathyroidism, unspecified
CPT/HCPCS: 99214; G2211

== ENCOUNTER 2023-10-17 10:13 | Outpatient (REF) | payer OTHER, SELFPAY ==
[2023-10-20 22:33] LABS: N-Telopeptide 31 (see note); NTXCreaRU 151 mg/dL (20-275)
== END 2023-10-17 10:14 | disposition home or self-care (01) ==
LOC: HO.10HDLR 10:13
PROVIDERS: Visit Provider Internal Medicine Endocrinology, Diabetes & Metabolism
DX: M81.0 Age-related osteoporosis without current pathological fracture (principal)
CPT/HCPCS: 82523

== ENCOUNTER 2023-11-05 13:03 | Outpatient (AMB) | payer OTHER, SELFPAY ==
[2023-11-05 13:07] VITALS: BP 130/86; PULSE 72
--- NOTE | 2023-11-05 13:07 | MHC.OFFVIS ---
Vital Signs 11/05/23 13:07 Height 5 ft 2 in Weight 164 lb 3.91 oz BMI 30.0 BP 130/86 Blood Pressure Location Lt brachial Position Sitting Pulse 72 Pulse Source Pulse Oximeter Intake Visit Reasons: f/u osteoporosis-confirmed Intake Note: Patient present today for Osteoporosis follow up visit. Bench Shear Operator Required: Yes Bench Shear Operator Language: Home Health Physical Therapist Services: Bench Shear Operator Present Bench Shear Operator Name: Oriana Information Interpreted: non-clinical & clinical Accompanied by: Self / Same As Patient Allergies No Known Allergies Allergy (Verified 11/05/23 13:11) Medication List - Last Reconciled 11/05/23 by Isidro Melo MD albuterol sulfate 0.63 mg (3 mL) inhalation Q4-6H PRN 30 days albuterol sulfate 90 mcg/actuation (Ventolin HFA) 2 puffs inhalation Q4-6H PRN aspirin 81 mg PO DAILY 90 days atorvastatin 40 mg PO BEDTIME 90 days [BP monitor As directed] calcium citrate 400 mg (2 x 200 mg (950 mg)) PO BID 30 days cholecalciferol (vitamin D3) (Vitamin D3) 25 mcg PO DAILY cyclobenzaprine 5 mg PO TID PRN 7 days fluticasone propionate 50 mcg/actuation 2 sprays intranasal DAILY PRN 90 days lisinopril-hydrochlorothiazide 10-12.5 mg 1 tab PO DAILY loratadine 10 mg PO DAILY PRN meloxicam 15 mg PO DAILY sumatriptan succinate 50 mg PO NEEDED PRN 30 days HPI Comments Details: 63 yo female today for fup visit, for osteoporosis . She is here today for follow-up osteoporosis , Her last Prolia shot was 7 mos ago. in Nov Fx last wrist from fall 2017. 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 Denies prior fractures, GERD, negative FH of fractures or osteoporosis, nephrolithiasis, steroids used, smoker, was on anti seizures medications for 4 months 2001, bone deformities. Bisphosphonates use: for 2 years, [id number]. started on September 2015 stopped 01/2016. No problems with alendronate Calcium intake: 500 mg of citrate bid. Vitamin D: 2000 units daily. DEXA 10/12/2019 AP SPINE L1-L4 Current: BMD 0.939 g/cm2, Z-score -1.3, T-score -2.0, osteopenia, 6.9% increase from previous, 5.7% increase from baseline (<5% change is not significant). Prior: BMD 0.878 g/cm2. Baseline: BMD 0.888 g/cm2. LEFT FEMUR, NECK: Current: BMD 0.902 g/cm2, Z-score -0.1, T-score -1.0, normal. Prior: BMD 0.810 g/cm2. Baseline: BMD 0.851 g/cm2. LEFT FEMUR, TOTAL: Current: BMD 1.042 g/cm2, Z-score 0.8, T-score 0.3, normal, 16.3% increase from previous, 18.9% increase from baseline (<5% change is not significant). Prior: BMD 0.896 g/cm2. Baseline: BMD 0.876 g/cm2. Laboratory Tests 05/25/20 05/25/20 06/14/20 07:50 07:50 08:30 Creatinine 0.75 Estimated GFR > 60 Calcium 9.4 Alkaline Phosphatase 55 Albumin 4.2 N-Telopeptide X-linked 25-OH Vitamin D Total 42.6 25-Hydroxy Vitamin D2 <4 25-Hydroxy Vitamin D3 41 TSH 1.56 Free T4 1.01 06/14/20 Unknown Creatinine Estimated GFR Calcium Alkaline Phosphatase Albumin N-Telopeptide X-linked 19 25-OH Vitamin D Total 25-Hydroxy Vitamin D2 25-Hydroxy Vitamin D3 TSH Free T4 Laboratory Tests 10/03/18 10/03/18 10/03/18 09:10 09:10 Unknown Creatinine Est GFR (Non-Af Amer) Calcium Alkaline Phosphatase Albumin N-Telopeptide X-linked 15 25-OH Vitamin D Total 32.7 Free T4 0.98 TSH 3rd Generation 1.00 12/01/19 11:20 Creatinine 0.84 Est GFR (Non-Af Amer) > 60 Calcium 9.9 Alkaline Phosphatase 45 Albumin 4.8 N-Telopeptide X-linked 25-OH Vitamin D Total Free T4 TSH 3rd Generation Currently off alendronate . Taking calcium and vitamin D [facility] Medical History (Updated 09/30/23 @ 11:33 by Yasmin Martin MD) UTI (urinary tract infection) Hospital discharge follow-up Delirium Acute confusion Osteoporosis Mild asthma Family history of thyroid disease Left wrist pain Hypovitaminosis D Dyslipidemia Essential hypertension Surgical History Meningioma History of removal of cyst History of carpal tunnel release History of tubal ligation Family History Father Essential hypertension Mother Essential hypertension Maternal Aunt Breast cancer Social History Household Members: Children Housing: Apartment Are you a primary director of managed care to a significant other at home: No Do you presently have visiting nurse or other home services: No Alcohol intake: never Patient Tobacco Use Status: Never used Tobacco e-Cigarette/Vaping Use: Never Used Second Hand Smoke Exposure: Yes service: No Current occupational status: unemployed Sexual orientation: Straight/Heterosexual Cognitive needs: No Hearing needs: No Vision needs: No Female Reproductive History Menstrual Age of Menarche: 14 Physical Exam Vital Signs: Last Vital Signs Pulse 72 11/05/23 13:07 BP 130/86 11/05/23 13:07 BMI result Body Mass Index 30.0 Assessment & Plan Assessment & Plan (1) Osteoporosis: Code(s): M81.0 - Age-related osteoporosis without current pathological fracture Category: Medical Qualifiers: Osteoporosis type: age-related Presence of current pathological fracture: without current pathological fracture Qualified Code(s): M81.0 - Age-related osteoporosis without current pathological fracture Plan: This is a 63-year-old [place] female with a history of osteoporosis currently on alendronate 70 mg q.week after being on Prolia for with marked improvement in bone density into the low bone mass range. Secondary workup has been negative Plan is to continue off the alendronate. We will continue calcium and vitamin-D supplementation. Will repeat DEXA bone density. Orders: Orders Collagen Crosslinks NTX 6 Months M81.0 - Age-related osteoporosis without current pathological fracture XR DEXA axial skeleton Today N95.9 - Unspecified menopausal and perimenopausal disorder Coding Level of Care Code Est Pt Level 3 (67808) Diagnoses Age-related osteoporosis without current pathological fracture M81.0 Osteoporosis type: age-related Presence of current pathological fracture: without current pathological fracture
== END 2023-11-05 13:25 | disposition home or self-care (01) ==
PROVIDERS: PCP Internal Medicine; Visit Provider Internal Medicine Endocrinology, Diabetes & Metabolism
DX: M81.0 Age-related osteoporosis without current pathological fracture (principal)
CPT/HCPCS: 99213

== ENCOUNTER → 2023-11-05 13:03 | Outpatient (BNVA) | payer OTHER, SELFPAY | PROVIDERS: PCP Internal Medicine; Visit Provider Internal Medicine Endocrinology, Diabetes & Metabolism | DX: M81.0 Age-related osteoporosis without current pathological fracture (principal); N95.9 Unspecified menopausal and perimenopausal disorder | CPT/HCPCS: 99212 ==

== ENCOUNTER 2023-12-19 12:41 | Outpatient (REF) | payer OTHER, SELFPAY ==
--- NOTE | ~2023-12-19 | MM_ITS ---
EXAMINATION: BONE DENSITOMETRY CLINICAL INDICATION: Unspecified menopausal and perimenopausal disorder. COMPARISON: Previous BD dated 10/12/2019 and baseline BD dated 10/29/2007. TECHNIQUE: Using a [employer] DXA System (software version: 13.1) manufactured by [employer], dual-energy x-ray absorptiometry was performed of the lumbar spine and left hip. The images are of good technical quality. Summary results are attached. FINDINGS: LEFT FEMUR, NECK: Current: BMD 0.841 g/cm2, Z-score -0.3, T-score -1.4, osteopenia. Prior: BMD 0.902 g/cm2. Baseline: BMD 0.851 g/cm2. LEFT FEMUR, TOTAL: Current: BMD 0.937 g/cm2, Z-score 0.3, T-score -0.6, normal, 10.1% decrease from previous, 7.0% increase from baseline (<5% change is not significant). Prior: BMD 1.042 g/cm2. Baseline: BMD 0.876 g/cm2. AP SPINE L1-L4: Current: BMD 0.886 g/cm2, Z-score -1.4, T-score -2.5, osteoporosis, 5.6% decrease from previous, 0.2% decrease from baseline (<5% change is not significant). Prior: BMD 0.939 g/cm2. Baseline: BMD 0.888 g/cm2. IDENTIFIED RISK FACTORS: Early menopause, secondary osteoporosis, history of fracture (adult), osteoporosis. HISTORY OF FRACTURE: Wrist. MEDICATIONS: Calcium supplements or multivitamin, vitamin D, bisphosphonate. MM/XR DEXA axial skeleton IMPRESSION: 1. DIAGNOSIS: Severe osteoporosis based on the lowest T-score value of -2.5 in the lumbar spine and history of fracture applying World Health Organization criteria. 2. 10-YEAR FRACTURE RISK PREDICTION, FRAX: According to the guidelines, FRAX calculation should only be performed on patients in the osteopenia bone density category. Therefore, FRAX was not performed on this patient. 3. Treatment Recommendations: NOF guidelines recommend consideration for treatment in postmenopausal women and men age 50 and older presenting with the following: -A hip or vertebral (clinical or morphometric) fracture. -T-score less than or equal to -2.5 at the femoral neck or spine after appropriate evaluation to exclude secondary causes. -Low bone mass at the hip or spine and a 10-year fracture probability by FRAX of greater than or equal to 3% for hip fracture or greater than or equal to 20% for major osteoporotic fracture based on the [place] adapted WHO algorithm. 4. Other Recommendations: All treatment decisions require clinical judgment and consideration of individual patient factors, including patient preferences, comorbidities, previous drug use, risk factors not captured in the FRAX model (e.g. frailty, falls, vitamin D deficiency, increased bone turnover, interval significant decline in bone density) and possible under or overestimation of fracture risk by FRAX. Additional medical evaluation for secondary cause of low bone mineral density may be appropriate. FUTURE SCAN RECOMMENDATION: People with diagnosed cases of osteoporosis or at high risk for fracture should have regular bone mineral density tests. For patients eligible for Medicare, routine testing is allowed once every 2 years. The testing frequency can be increased to one year for patients who have rapidly progressing disease, those who are receiving or discontinuing medical therapy to restore bone mass, or have additional risk factors. Electronically signed by: Jarvis Rodriguez MD 12/24/2023 01:15 PM EDT
== END 2023-12-19 12:42 | disposition home or self-care (01) ==
LOC: HO.MAMMO 12:41
PROVIDERS: PCP Internal Medicine; Visit Provider Internal Medicine Endocrinology, Diabetes & Metabolism
DX: Z13.820 Encounter for screening for osteoporosis (principal); Z78.0 Asymptomatic menopausal state
CPT/HCPCS: 77080

== ENCOUNTER 2024-02-24 10:51 | Outpatient (AMB) | payer OTHER, SELFPAY ==
--- NOTE | 2024-02-24 11:12 | MHC.PC.OV ---
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 Accompanied by: Self / Same As Patient Allergies No Known Allergies Allergy (Verified 02/24/24 11:22) Medication List - Last Reconciled 02/24/24 by Yasmin Martin MD albuterol sulfate 0.63 mg (3 mL) inhalation Q4-6H PRN 30 days albuterol sulfate 90 mcg/actuation (Ventolin HFA) 2 puffs inhalation Q4-6H PRN aspirin 81 mg PO DAILY 90 days atorvastatin 40 mg PO BEDTIME 90 days bisacodyl (Dulcolax (bisacodyl)) 20 mg (4 x 5 mg) PO ONCE 1 day [BP monitor As directed] calcium citrate 400 mg (2 x 200 mg (950 mg)) PO BID 30 days cholecalciferol (vitamin D3) (Vitamin D3) 25 mcg PO DAILY cyclobenzaprine 5 mg PO TID PRN 7 days fluticasone propionate 50 mcg/actuation 2 sprays intranasal DAILY PRN 90 days lisinopril-hydrochlorothiazide 10-12.5 mg 1 tab PO DAILY loratadine 10 mg PO DAILY PRN meloxicam 15 mg PO DAILY polyethylene glycol 3350 (Miralax) 238 grams PO ONCE 1 day sumatriptan succinate 50 mg PO NEEDED PRN 30 days Tobacco use date assessed: 09/30/23 Dental Screening Dental Screen Date: 09/30/23 HPI HPI Comments History of Present Illness Details This is a 64-year-old female that comes for her physical exam. She has hyperparathyroidism with severe osteoporosis follow by Endocrinology. Also has history of bipolar disorder which is in remission. Mammogram done less than a year ago was normal. Colonoscopy scheduled for April 2024. Pap smear done 2021. Complains of insomnia and would like to start melatonin. [facility] Medical History (Updated 02/24/24 @ 11:51 by Yasmin Martin MD) UTI (urinary tract infection) Hospital discharge follow-up Delirium Acute confusion Osteoporosis Mild asthma Family history of thyroid disease Left wrist pain Hypovitaminosis D Dyslipidemia Essential hypertension Surgical History Meningioma History of removal of cyst History of carpal tunnel release History of tubal ligation Family History Father Essential hypertension Mother Essential hypertension Maternal Aunt Breast cancer Social History Household Members: Children Housing: Apartment Are you a primary client care coordinator to a significant other at home: No Do you presently have visiting nurse or other home services: No Alcohol intake: never Patient Tobacco Use Status: Never used Tobacco e-Cigarette/Vaping Use: Never Used Second Hand Smoke Exposure: Yes service: No Current occupational status: unemployed Sexual orientation: Straight/Heterosexual Cognitive needs: No Hearing needs: No Vision needs: No Female Reproductive History Menstrual Age of Menarche: 14 Questionnaire PHQ-9 Over the last 2 weeks, how often have you been bothered by any of the following problems? 1. Little interest or pleasure in doing things: not at all 2. Feeling down, depressed, or hopeless: not at all 3. Trouble falling or staying asleep, or sleeping too much: not at all 4. Feeling tired or having little energy: not at all 5. Poor appetite or overeating: not at all 6. Feeling bad about yourself - or that you are a failure or have let yourself or your family down: not at all 7. Trouble concentrating on things, such as reading the newspaper or watching television: not at all 8. Moving or speaking so slowly that other people could have noticed. Or the opposite - being so fidgety or restless that you have been moving around a lot more than usual: not at all 9. Thoughts that you would be better off or of hurting yourself in some way: not at all Total score: 0 Depression Screening Interpretation: Negative Depression Screening Done: Yes 63794 - PHQ-9 Billing: Yes Source: Developed by Drs. Isidro Cruz, Shannan Benitez, Ryan Aiken and colleagues, with an educational ahmet from [employer]. Thrive Questionnaire Date Thrive assessed: 02/24/24 I am a: Patient What is your living situation today?: I have a steady place to live Within the past 12 months, did the food you bought not last and you didn't have the money to get more?: Never true Within the past 12 months, did you worry whether your food would run out before you got money to buy more?: Never true Do you have trouble paying for medicines?: No Do you have trouble getting transportation to medical appointments?: No Do you have trouble paying your heating and electricity bill?: No Do you have trouble taking care of your child, family member or friend?: No Do you have trouble with day-to-day activities such as bathing, preparing meals, shopping, managing finances, etc.?: No Are you currently unemployed and looking for a job?: No Are you interested in more education?: No Please select the resources that you would like help with: None Currently or been in a relationship where the following occur: No concerns reported THRIVE Score: 0 AUDIT C Alcohol Use Questionnaire (AUDIT-C) 1. How often do you have a drink containing alcohol?: Monthly or less 2. How many drinks containing alcohol do you have on a typical day when you are drinking?: 1 or 2 3. How often do you have six or more drinks on one occasion?: Never Total Score: 1 Score Reviewed/Action Taken: No AMADO-7 AMB Questionnaire AMADO-7 Date AMADO - 7 assessed: 02/24/24 Feeling nervous, anxious, or on edge: 0 = Not at all Not being able to stop or control worryin = Not at all Worrying too much about different things: 0 = Not at all Trouble relaxin = Not at all Being so restless that it is hard to sit still: 0 = Not at all Becoming easily annoyed or irritable: 0 = Not at all Feeling afraid as if something awful might happen: 0 = Not at all Total AMADO-7 score (0-4 normal; 5-9 mild; 10-14 moderate; 15-21 severe): 0 Source: Developed by Drs. Isidro Cruz, Shannan Benitez, Ryan Aiken and colleagues, with an educational ahmet from [employer]. AMADO-7 Assessment Billing AMADO-7 Assessment Tool: AMADO-7 Assessment 07096 Review of Systems Const All systems reviewed & are unremarkable except as noted in HPI and below Eyes Reports no additional complaints, Denies change in vision and Denies other visual disturbances Card Denies chest pain at rest, Denies chest pain with activity, Denies edema, Denies irregular heart rhythm, Denies claudication, Denies dyspnea, Denies dyspnea on exertion, Denies orthopnea, Denies paroxysmal nocturnal dyspnea and Denies slow heart rate Resp Denies cough, Denies dyspnea and Denies dyspnea on exertion GI Denies abdominal pain, Denies change in bowel habits, Denies excessive flatus, Denies nausea and Denies vomiting Psych Reports abnormal sleep pattern Physical exam (Primary Care) Vital Signs: Last Vital Signs BP 122/70 02/24/24 11:14 BMI result Body Mass Index 30.0 BMI Assessment/Plan discussion: High BMI High, discussed plan: lifestyle, weight reduction, dietary and physical activity Tobacco/Smoking Status: Tobacco use Status Tobacco use date assessed 09/30/23 02/24/24 11:17 Patient Tobacco Use Status Never used Tobacco 02/24/24 11:17 e-Cigarette/Vaping Use Never Used 02/24/24 11:17 PHQ-9: PHQ-9 Score PHQ-9: Total score 0 02/24/24 11:21 Depression Screening Interpretation: Negative Thrive Assessment: Date of Thrive Assessment Date Thrive assessed 02/24/24 02/24/24 11:17 Currently or been in a relationship where the following occur: No concerns reported [facility] Head: Yes normal to inspection, Yes normocephalic and Yes atraumatic Ears: external ears normal Eyes General: appearance normal, both eyes and all related structures Eyelids: Yes eyelids normal Conjunctivae: conjunctivae normal Neck Neck: Yes normal visual inspection and Yes supple Resp Effort & Inspection: normal respiratory effort Auscultation: clear to auscultation bilaterally Cardio Jugular venous distension: no JVD Rate: regular rate Rhythm: regular rhythm Heart sounds: S1 normal heart sound present and S2 normal heart sound present GI Inspection: Yes normal to inspection Palpation (GI): Soft to palpation and nontender Auscultation: normal bowel sounds Skin General skin exam: no rashes or lesions noted Neuro General: no focal motor deficits Extrem General: Yes full ROM Psych Appearance: grossly normal Office Procedures Flu Questionnaire Does the patient have a severe egg allergy?: No Immunizations Fluarix Triv [id number] (PF) 45 mcg (15 mcg x 3)/0.5 mL IM syringe Performing Provider: Yasmin Martin MD [place] [facility] [place] [facility] Documented (not given) by: CHRISTINE Gary on 02/24/24 11:21 Reason Not Given: Received Previously Coding Level of Care Code Est Pt Level 3 (56428) Est Pt Prev Care 40-64y(35004) Diagnoses Physical exam Z00.00 Psychophysiological insomnia F51.04 Insomnia type: psychophysiologic Hyperparathyroidism E21.3 Bipolar disorder, in full remission, most recent episode manic F31.74 Active/Remission status: in full remission Most recent bipolar episode type: manic Additional Codes PHQ-9 - 54340 - PHQ-9 Billing: Yes ([id number]) AMADO-7 Assessment Billing - AMADO-7 Assessment Tool: AMADO-7 Assessment 09320 ([id number]) Time Spent (min) 31 Assessment & Plan Assessment & Plan (1) Physical exam: Code(s): Z00.00 - Encounter for general adult medical examination without abnormal findings Category: Medical Plan: Repeat in a year. (2) Insomnia: Code(s): G47.00 - Insomnia, unspecified Category: Medical Qualifiers: Insomnia type: psychophysiologic Qualified Code(s): F51.04 - Psychophysiologic insomnia Plan: Start melatonin. (3) Hyperparathyroidism: Code(s): E21.3 - Hyperparathyroidism, unspecified Category: Medical Plan: Follow-up with endocrinology. (4) Bipolar disorder: Code(s): F31.9 - Bipolar disorder, unspecified Category: Medical Qualifiers: Active/Remission status: in full remission Most recent bipolar episode type: manic Qualified Code(s): F31.74 - Bipolar disorder, in full remission, most recent episode manic Plan: In remission. Orders: Orders Influenza [id number] Immunization Today Z23 - Encounter for immunization Medications: New melatonin 10 mg PO BEDTIME 90 days PRN 90 tabs 1RF sleep Refilled loratadine 10 mg PO DAILY PRN 30 tabs 0RF allergy symptoms meloxicam 15 mg PO DAILY 14 tabs 0RF
[2024-02-24 11:14] VITALS: BP 122/70
== END 2024-02-24 11:35 | disposition home or self-care (01) ==
PROVIDERS: PCP Internal Medicine; Visit Provider Internal Medicine
DX: Z00.00 Encounter for general adult medical examination without abnormal findings (principal); F51.04 Psychophysiologic insomnia; E21.3 Hyperparathyroidism, unspecified; F31.74 Bipolar disorder, in full remission, most recent episode manic

== ENCOUNTER → 2024-02-24 10:51 | Outpatient (BNVA) | payer OTHER, SELFPAY | PROVIDERS: PCP Internal Medicine; Visit Provider Internal Medicine | DX: Z00.01 Encounter for general adult medical examination with abnormal findings (principal); F51.04 Psychophysiologic insomnia; E21.3 Hyperparathyroidism, unspecified; F31.74 Bipolar disorder, in full remission, most recent episode manic | CPT/HCPCS: 96127; 99212; 99396 ==

== ENCOUNTER 2024-04-23 08:32 | Day surgery (SDC) | payer OTHER, SELFPAY ==
--- NOTE | 2024-04-22 09:36 | P.CONAN_ITS ---
Documented by User: Suly Gaviria NP 04/22/24 09:37 HPI - Anesthesia Eval Consult details Narrative: 64yo F for Colonoscopy PMFSH Active Problems Active Problems: All Active Problems Bipolar disorder (Acute) Insomnia (Acute) Hyperparathyroidism (Acute) Impaired glucose tolerance (Acute) Lumbar pain (Acute) Elevated random blood glucose level (Acute) High urine creatine/creatinine ratio (Acute) Obesity (BMI 30.0-34.9) (Acute) Cataract (Acute) Preoperative clearance (Acute) Physical exam (Acute) Osteoporosis (Acute) Mild asthma (Acute) Family history of thyroid disease (Acute) Left wrist pain (Acute) Hypovitaminosis D (Acute) Dyslipidemia (Acute) Essential hypertension (Acute) Past Medical History Medical History Delirium Hospital discharge follow-up UTI (urinary tract infection) Acute confusion Osteoporosis Mild asthma Family history of thyroid disease Left wrist pain Hypovitaminosis D Dyslipidemia Essential hypertension Family History Family History Father Essential hypertension Mother Essential hypertension Maternal Aunt Breast cancer Family history of problems with anesthesia: No Surgical History Surgical History Hx of bilateral cataract extraction Meningioma History of removal of cyst History of carpal tunnel release History of tubal ligation History of Problems with Anesthesia: No Social History Social History Household Members: Children Housing: Apartment Are you a primary health care legal assistant to a significant other at home: No Do you presently have visiting nurse or other home services: No Alcohol intake: never Patient Tobacco Use Status: Never used Tobacco e-Cigarette/Vaping Use: Never Used Second Hand Smoke Exposure: Yes Use of substances other than those prescribed or required for medical reasons: No Have you been hit, kicked, punched, or otherwise hurt by someone within the past year? If so, by whom?: No Are you DNR?: No Advance Directives: No Advance Directives Information Provided: Yes Recently lost weight without trying: No Nutrition Risks: No Nutritional Risk Patient : No service: No Current occupational status: unemployed Sexual orientation: Straight/Heterosexual Cognitive needs: No Hearing needs: No Vision needs: No Meds Allergies Allergy/AdvReac Type Severity Reaction Status Date / Time No Known Allergies Allergy Verified 04/23/24 08:58 Exam Height,Weight and Vital Signs: Height 5 ft 2 in Weight 74.389 kg Assessment and Plan Assessment Anesthesia Assessment: Chart Reviewed Final Anesthetic Review Family History of Problems with Anesthesia: No History of Problems with Anesthesia: No Documented by User: Bronwyn Schumacher MD 04/23/24 09:41 [facility] Past Medical History Medical History Delirium Hospital discharge follow-up UTI (urinary tract infection) Acute confusion Osteoporosis Mild asthma Family history of thyroid disease Left wrist pain Hypovitaminosis D Dyslipidemia Essential hypertension Family History Family History Father Essential hypertension Mother Essential hypertension Maternal Aunt Breast cancer Surgical History Surgical History Hx of bilateral cataract extraction Meningioma History of removal of cyst History of carpal tunnel release History of tubal ligation Social History Social History Household Members: Children Housing: Apartment Are you a primary health care legal assistant to a significant other at home: No Do you presently have visiting nurse or other home services: No Alcohol intake: never Patient Tobacco Use Status: Never used Tobacco e-Cigarette/Vaping Use: Never Used Second Hand Smoke Exposure: Yes Use of substances other than those prescribed or required for medical reasons: No Have you been hit, kicked, punched, or otherwise hurt by someone within the past year? If so, by whom?: No Are you DNR?: No Advance Directives: No Advance Directives Information Provided: Yes Recently lost weight without trying: No Nutrition Risks: No Nutritional Risk Patient : No service: No Current occupational status: unemployed Sexual orientation: Straight/Heterosexual Cognitive needs: No Hearing needs: No Vision needs: No Meds Allergies Allergy/AdvReac Type Severity Reaction Status Date / Time No Known Allergies Allergy Verified 04/23/24 08:58 Exam Airway Mallampati Class: II TM Dist: >3cm Neck ROM: Full Heart: rrr Lungs: cta Assessment and Plan Assessment Anesthesia Assessment: Anesthesia Plan Discussed Final Anesthetic Review NPO: Yes ASA Class: II Final Preanesthetic Review: No Changes in Pt Med Stat, Meds/Allgs Chart Reviewed and Consent Obtained/Reviewed Patient Risk: Low Procedure Risk: Low Anesthetic Plan Anesthetic Plan: MAC: Disposition: Standard PACU
[2024-04-23 08:50] VITALS: BMI 30.5
[2024-04-23 09:14] VITALS: BP 107/70; PULSE 87; RESP 16; TEMP 37.2; O2SAT 95
[2024-04-23] MEDS: Lactated Ringers 1,000 ML 100 ML IVCONT (09:16)
--- NOTE | 2024-04-23 09:17 | P.HPSUR_ITS ---
Pre-Procedural Eval Section A - 24 Hr Update-Section A only Date of Service: 04/23/24 Section B - Complete if H&P > 30 days Chief Complaint: screening Relevant Family History (Specify if Yes): No Relevant Social History: None Present Medications: see Short Stay Collaborative assessment Medical History: Significant History (Osteoporosis Mild asthma Family history of thyroid disease Left wrist pain Hypovitaminosis D Dyslipidemia Essential hypertension) History of Previous Operations: Relevant previous surgery/procedure and date(s) (Meningioma History of removal of cyst History of carpal tunnel release History of tubal ligation) Allergies: Allergies Allergy/AdvReac Type Severity Reaction Status Date / Time No Known Allergies Allergy Verified 04/23/24 08:58 Review of Systems Sugical H&P ROS: Negative: Constitution, Cardiovascular, Respiratory and Marisol rointestinal Exam Surgical H&P Exam: Normal: Heart, Normal: Lungs, Normal: Extremities and Normal: Abdomen Plan Diagnosis/Plan: Change (proceed with colonoscopy) I have reviewed the history and physical and performed a pertinent physical examination on my patient. No changes have occurred unless specified. Time Spent With Patient Time: Total time managing care of this patient today ____ minutes.
[2024-04-23 10:14] VITALS: BP 100/66; PULSE 78; RESP 16; TEMP 36.5; O2SAT 98
--- NOTE | 2024-04-23 10:15 | HO.OPN-COLON ---
Colonoscopy Operative Note Operative Note Date of Service: 04/23/24 Narrative: COLONOSCOPY TILL CECUM WITH BIOPSIES Pre-op diagnosis: Colon cancer screening (2nd colon). Post-op diagnosis:? Colon polyp, Diverticulosis, hemorrhoids Endoscopist:? Jerman Greco MD Anesthesia:?MAC Consent: Indications for the procedure and potential complications of bleeding, perforation, reaction to medications and missed diagnosis were discussed with the patient and informed consent was obtained. Instrument: Olympus PCF H 190 L variable stiffness pediatric colonoscope Monitoring: Vital signs and clinical assessment, intermittent blood pressure monitoring, continuous EKG monitoring, Pulse oximetry and Carbon Dioxide monitoring were done throughout the procedure. Please see anesthesia flowsheet. Colon withdrawl time was 15 minutes. Procedure: The patient was placed in the left lateral decubitis position and pre-procedure medications were administered. After a digital rectal examination of the ano-rectum, the video colonoscope was inserted into the rectum and advanced through the colon to the cecum. The colonoscope was slowly withdrawn in a retrograde panoramic fashion and the colon mucosa was carefully examined including a retroflexed view of the rectum. Findings and interventions are described below. Procedure Difficulty: without difficulty Findings: Terminal Ileum: Not evaluated Cecum: Partially evaluated due to suboptimal prep Ascending Colon: Normal Transverse Colon: A 4-5 mm sessile polyp versus inverted diverticulum - biopsied. Descending Colon: Moderate diverticulosis Sigmoid Colon: Moderate diverticulosis Rectum: Normal Ano-rectum: Moderate internal hemorrhoids Colon preparation: Fair after despite copious irrigation. There was undigested vegetable matter throughout the colon which could not be suctioned despite vigorous irrigation [place] Bowel Preparation Scale Right colon; 1 Transverse colon: 1 Left colon; 1 (0 = Unprepared colon segment with mucosa not seen due to solid stool that cannot be cleared. 1 = Portion of mucosa of the colon segment seen, but other areas of the colon segment not well seen due to staining, residual stool and/or opaque liquid. 2 = Minor amount of residual staining, small fragments of stool and/or opaque liquid, but mucosa of colon segment seen well. 3 = Entire mucosa of colon segment seen well with no residual staining, small fragments of stool or opaque liquid) Impression and Post Procedure Diagnosis: Colonoscopy Findings: One small polyp versus inverted diverticulum was biopsied. Moderate diverticulosis seen in the left colon Moderate hemorrhoids on retroflexed exam. Suboptimal prep. Plan: I will send a letter with biopsy results. Repeat Colonoscopy in 1 year due to suboptimal prep (Duloclax 10 mg daily starting 5 days before next colonoscopy appointment). Above findings were reviewed with the patient and relevant handouts were given and the discharge area.
[2024-04-23 10:29] VITALS: BP 113/71; PULSE 74; RESP 16; O2SAT 100
[2024-04-23 10:37] VITALS: BP 122/74; PULSE 64; RESP 16; TEMP 36.5; O2SAT 100
== END 2024-04-23 11:05 | disposition home or self-care (01) ==
PROVIDERS: PCP Internal Medicine; Visit Provider Internal Medicine Gastroenterology
PROC: 0DJD8ZZ Inspection of Lower Intestinal Tract, Via Natural or Artificial Opening Endoscopic (ICD-10-PCS; CPT 45378; principal; 2024-04-23 10:10)
DX: Z12.11 Encounter for screening for malignant neoplasm of colon (principal); K63.5 Polyp of colon; K57.30 Diverticulosis of large intestine without perforation or abscess without bleeding; K64.8 Other hemorrhoids; I10 Essential (primary) hypertension; E78.5 Hyperlipidemia, unspecified; E21.3 Hyperparathyroidism, unspecified; J45.30 Mild persistent asthma, uncomplicated; Z79.82 Long term (current) use of aspirin; Z79.02 Long term (current) use of antithrombotics/antiplatelets; Z79.899 Other long term (current) drug therapy
CPT/HCPCS: 45380; 88305; J2003; J2704

== ENCOUNTER → 2024-04-23 08:32 | Outpatient (BNV) | payer OTHER, SELFPAY | PROVIDERS: PCP Internal Medicine; Visit Provider Internal Medicine Gastroenterology | DX: Z12.11 Encounter for screening for malignant neoplasm of colon (principal); K63.5 Polyp of colon; K57.90 Diverticulosis of intestine, part unspecified, without perforation or abscess without bleeding; K64.8 Other hemorrhoids | CPT/HCPCS: 45380 ==

== ENCOUNTER 2024-05-07 14:18 | Outpatient (REF) | payer OTHER, SELFPAY | END 2024-05-07 14:19 | disposition home or self-care (01) | LOC: HO.LAB 14:18 | PROVIDERS: PCP Internal Medicine; Visit Provider Internal Medicine Endocrinology, Diabetes & Metabolism | DX: Z13.89 Encounter for screening for other disorder (principal) ==

== ENCOUNTER 2024-05-08 08:24 | Outpatient (REF) | payer OTHER, SELFPAY ==
--- OUTSIDE RECORDS SUMMARY | 2024-05-08 08:26 | XMS_ITS | Clinical Summary ---
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 timothy fied surface antigen) 05/01/2012 Pneumococcal Conjugate PCV 13 04/17/2015 Tdap 05/21/2007 Zoster, Recombinant 10/16/2021,08/13/2021 Social History Tobacco Use Types Packs/Day Years Used Date Smoking Tobacco: Never Assessed Comments Unknown Sex and Gender Information Value Date Recorded Sex Assigned at Female 02/11/2022 10:19 AM EDT Legal Sex Female 10:19 AM EDT Gender Identity Female 02/11/2022 10:19 AM EDT Sexual Orientation Straight 02/11/2022 10 :19 AM EDT Plan of Treatment Health Maintenance Due Date Last Done Comments CT Colonography 1962 Colonoscopy 1962 Colorectal Cancer Screening 1962 Depression Screening 1962 FIT DNA/Cologuard 1962 FIT 1962 FOBT 1962 Sigmoidoscopy 1962 Alcohol/Substance Use Screening 1974 Tobacco Screening 1974 Pap Smear 1983 Cervical Cancer Screening 01/24/1992 HPV/Cotest 01/24/1992 DTaP/Tdap/Td Vaccines (2 - Td or Tdap) 05/21/2017 05/21/2007 Mammogram 03/19/2021 03/19/2019, 03/09/2018 COVID-19 Vaccine ( season) 2023 03/13/2021, 07/12/2020, 06/14/2020 Influenza Vaccine (#1) 2023 3, 03/04/2022, 02/13/2021, Additional history exists RSV Patients and Patients Aged 60 years or older (1 - 1-dose 75+ series) 2037 Hepatitis B Vaccines Completed 01/15/2008, 08/25/2007, 07/23/2007 Pneumococcal Vaccine: Pediatrics (0 to 5 Years) and At-Risk Patients (6 to 64 Years) Aged Out 04/17/2015 No longer eligible based on patient's age to complete this topic Zoster Vaccines Completed 10/16/2021, 08/13/2021 HIB Vaccines Aged Out No longer eligi ble based on patient's age to complete this topic HPV Vaccines Aged Out No longer eligi ble based on patient's age to complete this topic Hepatitis A Vaccines Aged Out No long er eligible based on patient's age to complete this topic IPV Vaccines Aged Out No longer eligi ble based on patient's age to complete this topic Meningococcal Vaccine Aged Out No eduar melita eligible based on patient's age to complete this topic RSV under 20 months Aged Out No longe r eligible based on patient's age to complete this topic Rotavirus Vaccines Aged Out No longer eligible based on patient's age to complete this topic Procedures Procedure Name Priority Date/Time Associated Diagnosis Comments BI MAMMOGRAM SCREENING BILATERAL Routine 03/19/2019 7:34 AM EST from Last 3 Months or Most Recently Relevant to Health Maintenance Results * 3D DIGITAL LYNNETTE SCR MAMMO 1 (03/19/2019 7:34 AM EST) Anatomical Region Laterality Modality Breast Bilateral Mammography 03/19/2019 7:34 AM EST Narrative 03/19/2019 7:35 AM EST Refer to the Notes tab for result details [facility] Procedure: 3D DIGITAL LYNNETTE SCR MAMMO 1 Procedure Note Provider, Historical, - 07/06/2022 Refer to the Notes tab for result details Legacy Procedure: 3D DIGITAL LYNNETTE SCR MAMMO 1 us Historical Provider IMG BI PROCEDURES Final R esult from Last 3 Months or Most Recently Relevant to Health Maintenance
[2024-05-13 21:59] LABS: N-Telopeptide 32 (see note); NTXCreaRU 160 mg/dL (20-275)
== END 2024-05-08 08:25 | disposition home or self-care (01) ==
LOC: HO.LAB 08:24
PROVIDERS: PCP Internal Medicine; Visit Provider Internal Medicine Endocrinology, Diabetes & Metabolism
DX: M81.0 Age-related osteoporosis without current pathological fracture (principal)
CPT/HCPCS: 82523

== ENCOUNTER 2024-05-17 13:27 | Outpatient (AMB) | payer OTHER, SELFPAY ==
--- NOTE | 2024-05-17 13:29 | A.OFFVIS_ITS ---
Vital Signs 05/17/24 13:34 Height 5 ft 1.02 in Weight 168 lb 3.403 oz BMI 31.8 BP 128/82 Blood Pressure Location Lt brachial Position Sitting Pulse 89 Pulse Source Pulse Oximeter Intake Visit Reasons: Osteoporosis Intake Note: Patient present today for Osteoporosis follow up. Claim Representative Required: Yes Claim Representative Language: Superintendent Mechanical Services: Claim Representative Present Claim Representative Name: Kyra Information Interpreted: non-clinical & clinical Accompanied by: Montez Allergies No Known Allergies Allergy (Verified 05/17/24 13:37) Medication List - Last Reconciled 05/17/24 by Isidro Melo MD albuterol sulfate 0.63 mg (3 mL) inhalation Q4-6H PRN 30 days albuterol sulfate 90 mcg/actuation (Ventolin HFA) 2 puffs inhalation Q4-6H PRN aspirin 81 mg PO DAILY 90 days atorvastatin 40 mg PO BEDTIME 90 days [BP monitor As directed] calcium citrate 400 mg (2 x 200 mg (950 mg)) PO BID 30 days cholecalciferol (vitamin D3) (Vitamin D3) 25 mcg PO DAILY cyclobenzaprine 5 mg PO TID PRN 7 days fluticasone propionate 50 mcg/actuation 2 sprays intranasal DAILY PRN 90 days lisinopril-hydrochlorothiazide 10-12.5 mg 1 tab PO DAILY loratadine 10 mg PO DAILY PRN melatonin 10 mg PO BEDTIME PRN 90 days meloxicam 15 mg PO DAILY sumatriptan succinate 50 mg PO NEEDED PRN 30 days HPI Comments Details: 63 yo female today for fup visit, for osteoporosis . She is here today for follow-up osteoporosis , Her last Prolia shot was 7 mos ago. in Nov Fx last wrist from fall 2017. 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 Denies prior fractures, GERD, negative FH of fractures or osteoporosis, nephrolithiasis, steroids used, smoker, was on anti seizures medications for 4 months 2001, bone deformities. Bisphosphonates use: for 2 years, 1977-2580. started on September 2015 stopped 01/2016. No problems with alendronate Calcium intake: 500 mg of citrate bid. Vitamin D: 2000 units daily. DEXA 10/12/2019 AP SPINE L1-L4 Current: BMD 0.939 g/cm2, Z-score -1.3, T-score -2.0, osteopenia, 6.9% increase from previous, 5.7% increase from baseline (<5% change is not significant). Prior: BMD 0.878 g/cm2. Baseline: BMD 0.888 g/cm2. LEFT FEMUR, NECK: Current: BMD 0.902 g/cm2, Z-score -0.1, T-score -1.0, normal. Prior: BMD 0.810 g/cm2. Baseline: BMD 0.851 g/cm2. LEFT FEMUR, TOTAL: Current: BMD 1.042 g/cm2, Z-score 0.8, T-score 0.3, normal, 16.3% increase from previous, 18.9% increase from baseline (<5% change is not significant). Prior: BMD 0.896 g/cm2. Baseline: BMD 0.876 g/cm2. Laboratory Tests 05/25/20 05/25/20 06/14/20 07:50 07:50 08:30 Creatinine 0.75 Estimated GFR > 60 Calcium 9.4 Alkaline Phosphatase 55 Albumin 4.2 N-Telopeptide X-linked 25-OH Vitamin D Total 42.6 25-Hydroxy Vitamin D2 <4 25-Hydroxy Vitamin D3 41 TSH 1.56 Free T4 1.01 06/14/20 Unknown Creatinine Estimated GFR Calcium Alkaline Phosphatase Albumin N-Telopeptide X-linked 19 25-OH Vitamin D Total 25-Hydroxy Vitamin D2 25-Hydroxy Vitamin D3 TSH Free T4 Laboratory Tests 10/03/18 10/03/18 10/03/18 09:10 09:10 Unknown Creatinine Est GFR (Non-Af Amer) Calcium Alkaline Phosphatase Albumin N-Telopeptide X-linked 15 25-OH Vitamin D Total 32.7 Free T4 0.98 TSH 3rd Generation 1.00 12/01/19 11:20 Creatinine 0.84 Est GFR (Non-Af Amer) > 60 Calcium 9.9 Alkaline Phosphatase 45 Albumin 4.8 N-Telopeptide X-linked 25-OH Vitamin D Total Free T4 TSH 3rd Generation Currently off alendronate . Taking calcium and vitamin D. Took a course of Prolia in the past . No fracture since last visit. Recent DEXA stable and urine NTX is suppressed [facility], [facility] Medical History [facility] discharge follow-up UTI (urinary tract infection) Acute confusion Osteoporosis Mild asthma Family history of thyroid disease Left wrist pain Hypovitaminosis D Dyslipidemia Essential hypertension Surgical History Hx of bilateral cataract extraction Meningioma History of removal of cyst History of carpal tunnel release History of tubal ligation Family History Father Essential hypertension Mother Essential hypertension Maternal Aunt Breast cancer Social History Household Members: Children Housing: Apartment Are you a primary acute care occupational therapist to a significant other at home: No Do you presently have visiting nurse or other home services: No Alcohol intake: never Patient Tobacco Use Status: Never used Tobacco e-Cigarette/Vaping Use: Never Used Second Hand Smoke Exposure: Yes service: No Current occupational status: unemployed Sexual orientation: Straight/Heterosexual Cognitive needs: No Hearing needs: No Vision needs: No Female Reproductive History Menstrual Age of Menarche: 14 Physical Exam Vital Signs: Last Vital Signs Pulse 89 05/17/24 13:34 BP 128/82 05/17/24 13:34 BMI result Body Mass Index 31.8 Assessment & Plan Assessment & Plan (1) Osteoporosis: Code(s): M81.0 - Age-related osteoporosis without current pathological fracture Category: Medical Qualifiers: Osteoporosis type: age-related Presence of current pathological fracture: without current pathological fracture Qualified Code(s): M81.0 - Age- related osteoporosis without current pathological fracture Plan: This is a 64-year-old [place] female with a history of osteoporosis currently on alendronate 70 mg q.week after being on Prolia for with marked improvement in bone density into the low bone mass range. Secondary workup has been negative Plan is to continue off the alendronate and on calcium and vitamin-D supplementation. Will check urine NTX in 7 -8 months time Orders: Orders Collagen Crosslinks NTX 7 Months M81.0 - Age-related osteoporosis without current pathological fracture Coding Level of Care Code Est Pt Level 3 (76787) Diagnoses Age-related osteoporosis without current pathological fracture M81.0 Osteoporosis type: age-related Presence of current pathological fracture: without current pathological fracture
[2024-05-17 13:34] VITALS: BP 128/82; PULSE 89; BMI 31.8
--- OUTSIDE RECORDS SUMMARY | 2024-05-17 14:45 | XMS_ITS | Clinical Summary ---
Author Organization [employer] Address [address] [place] [address] [address] [place] [address] Care Team Providers Care Welding Machine Operator Thermit Name Role Phone Unavailable Primary Care Provider [...] 1983 Cervical Cancer Screening 01/24/1992 HPV/Cotest 01/24/1992 Pneumococcal Vaccine: 50+ Years (2 of 2 - PPSV23) 04/17/2016 04/17/2015 DTaP/Tdap/Td Vaccines (2 - Td or Tdap) [...] 5 Years) and At-Risk Patients (6 to 49) Years) Aged Out 04/17/2015 No longer eligible [...] LYNNETTE SCR MAMMO 1 Procedure Note Provider, Natali, - 07/06/2022 Refer to the Notes tab for result details Legacy Procedure: 3D DIGITAL LYNNETTE SCR MAMMO 1 Historical Provider MD GL[facility]OW BI PROCEDURES Final R esult from Last 3 Months or Most Recently Relevant to Health Maintenance
--- OUTSIDE RECORDS SUMMARY | 2024-05-17 14:45 | XMS_ITS | Encounter Summary ---
Author Organization [employer] [facility] Address [address] [place] [address] [address] [place] [address] Care Team Providers Care Ict Support And Test Engineers Name Role Phone Cuate Wiggins Primary Care Provider Unavail able Encounter Details Date Type Department Care Team (Latest Contact Info) Description 07/17/2018 Abstract [facility] CONVERSIONS Dental, Provider, DDS Social History Tobacco Use Types Packs/Day Years Used Date Smoking Tobacco: Never Assessed Comments Unknown Sex and Gender Information Value Date Recorded Sex Assigned at Female 02/11/2022 10:19 AM EDT Legal Sex Female 10:19 AM EDT Gender Identity Female 02/11/2022 10:19 AM EDT Sexual Orientation Straight 02/11/2022 10 :19 AM EDT documented as of this encounter Plan of Treatment Not on file documented as of this encounter Visit Diagnoses Not on filedocumented in this encounter Care Teams Ict Support And Test Engineers Relationship Specialty Start Date End Date Cuate Wiggins AGNP PCP - General Family Medicine 01/14/22 12/22/22 documented as of this encounter
== END 2024-05-17 13:44 | disposition home or self-care (01) ==
PROVIDERS: PCP Internal Medicine; Visit Provider Internal Medicine Endocrinology, Diabetes & Metabolism
DX: M81.0 Age-related osteoporosis without current pathological fracture (principal)
CPT/HCPCS: 99213

== ENCOUNTER → 2024-05-17 13:27 | Outpatient (BNVA) | payer OTHER, SELFPAY | PROVIDERS: PCP Internal Medicine; Visit Provider Internal Medicine Endocrinology, Diabetes & Metabolism | DX: M81.0 Age-related osteoporosis without current pathological fracture (principal) | CPT/HCPCS: 99212 ==

== ENCOUNTER → 2024-05-18 13:00 | Outpatient (BNV) | payer OTHER, SELFPAY | PROVIDERS: PCP Internal Medicine; Visit Provider Internal Medicine | DX: Z12.31 Encounter for screening mammogram for malignant neoplasm of breast (principal) | CPT/HCPCS: 77063; 77067 ==

== ENCOUNTER 2024-10-13 10:15 | Outpatient (AMB) | payer OTHER, SELFPAY ==
--- NOTE | 2024-10-13 10:17 | A.OFFVIS_ITS ---
Vital Signs 10/13/24 10:27 Height 5 ft 1 in Weight 168 lb BMI 31.7 BP 106/70 Blood Pressure Location Lt brachial Position Sitting Intake Visit Reasons: HAND II TUBE BENDER annual exam Bridge Operator Required: No Bridge Operator Services: Bridge Operator Offered & Declined Information Interpreted: clinical only Ug Designer: Ug Designer Present (Janeen ) Accompanied by: Self / Same As Patient Allergies No Known Allergies Allergy (Verified 10/13/24 10:22) Is last menstrual period known: No Post menopausal: Yes Patient : No Do you need a note to return to daycare/school/sports/work: No HPI Comments Details: Patient is a postmenopausal woman presenting for her annual underwear trimmer examination. She is doing well with no underwear trimmer concerns. Currently not sexually active. Denies any vaginal dryness or irritation. STI testing offered; she accepted, including blood work. Attempting to eat a healthy diet with calcium and vitamin D and stays active with exercise. Last pap smear; 2021, negative. Last mammogram; 2024. Colonoscopy is UTD. Denies any family history of ovarian or colon cancer. FH breast cancer. [facility] Medical History [facility] discharge follow-up UTI (urinary tract infection) Acute confusion Osteoporosis Mild asthma Family history of thyroid disease Left wrist pain Hypovitaminosis D Dyslipidemia Essential hypertension Surgical History Hx of bilateral cataract extraction Meningioma History of removal of cyst History of carpal tunnel release History of tubal ligation Family History Father Essential hypertension Mother Essential hypertension Maternal Aunt Breast cancer Social History Household Members: Children Housing: Apartment Are you a primary patient care representative to a significant other at home: No Do you presently have visiting nurse or other home services: No Alcohol intake: never Patient Tobacco Use Status: Never used Tobacco e-Cigarette/Vaping Use: Never Used Second Hand Smoke Exposure: Yes Patient : No service: No Current occupational status: unemployed Sexual orientation: Straight/Heterosexual Cognitive needs: No Hearing needs: No Vision needs: No Female Reproductive History Menstrual Age of Menarche: 14 control method: permanent sterilization Age of menopause: 41 Total pregnancies: 4 Full term: 4 Number of Living Children: 4 Date of last pap smear: 05/25/21 (negative pap smear, negative hpv ) Date of Mammogram: 05/18/24 (bi rad 1) Date of last Bone Density Screenin12/19/23 Review of Systems Const All systems reviewed & are unremarkable except as noted in HPI and below Reports as per HPI Eyes Reports no additional complaints ENT Reports no additional complaints Card Reports no additional complaints Resp Reports no additional complaints GI Reports as per HPI and Reports no additional complaints Reports as per HPI Musc Reports no additional complaints Skin/Breast Reports as per HPI Neuro Reports no additional complaints Psych Reports no additional complaints Endo Reports no additional complaints Ck/Lymph Reports no additional complaints Aller/Immun Reports no additional complaints Physical Exam Vital Signs: Last Vital Signs BP 106/70 10/13/24 10:27 BMI result Body Mass Index 31.7 Const General: cooperative, healthy appearing, no acute distress, well developed and alert Orientation/consciousness: patient oriented x3 HEENT Head: Yes normal to inspection Eyes General: appearance normal, both eyes and all related structures Neck Neck: Yes normal visual inspection Thyroid: Thyroid normal Chest Chest palpation & inspection: normal inspection of the chest and other (no puckering, dimpling, peau de orange, retraction, discharge, masses) Breast/axilla inspection: normal inspection of the breasts Breast/axilla palpation: normal palpation of the breasts Resp Effort & Inspection: normal respiratory effort GI Inspection: Yes normal to inspection Palpation (GI): Soft to palpation Rectal Exam - Female: deferred General: Yes bladder normal to palpation External Female Exam: normal external appearance and normal appearance of the urethra Speculum Exam - Vagina: normal appearance of the vagina, normal palpation and normal vaginal discharge Speculum Exam - Cervix: normal appearance of the cervix and normal palpation Bimanual exam- vagina & uterus: normal bimanual exam, normal palpation, uterine size normal, bladder normal to palpation, normal palpation and non-tender Bimanual Exam- Adnexa, other: no masses Skin General skin exam: no rashes or lesions noted Rashes: no rashes Neuro General: patient oriented x3 Cognition (Neuro): normal cognition Extrem General: Yes normal to inspection Psych Attitude: cooperative Thought process: Normal thought process present Assessment & Plan Assessment & Plan (1) Potential exposure to STD: Code(s): Z20.2 - Contact with and (suspected) exposure to infections with a predominantly sexual mode of transmission Category: Medical Plan: GC chlamydia and BV panel obtained. Blood work ordered. Follow up pending results. (2) Encounter for well woman exam with routine gynecological exam: Code(s): Z01.419 - Encounter for gynecological examination (general) (routine) without abnormal findings Category: Medical Plan Discussed: Current recommendations for pap smears per ASCCP guidelines. Breast awareness, periodic self breast exams and yearly mammogram. Maintain a healthy lifestyle, well balanced diet including Calcium 1,200 mg and Vitamin D 600 IU daily, and routine exercise. Use of condoms for STI prevention if indicated. Contact the office with any postmenopausal bleeding. Patient verbalizes understanding and agrees to the plan of care. She was given opportunity to ask questions and all questions were answered to the best of my ability. RTO in 1 year for annual underwear trimmer exam. This note is constructed using voice recognition software. While every effort has been made to ensure accuracy, cigarette packing machine operator errors may have been included. Orders: Orders HIV Ab/Ag Today Z20.2 - Contact with and (suspected) exposure to infections with a predominantly sexual mode of transmission Hepatitis C Antibody Reflex Today Z20.2 - Contact with and (suspected) exposure to infections with a predominantly sexual mode of transmission Hepatitis B Core Antibody Today Z20.2 - Contact with and (suspected) exposure to infections with a predominantly sexual mode of transmission Syphilis Screen Today Z20.2 - Contact with and (suspected) exposure to infections with a predominantly sexual mode of transmission CT NG by PCR Vag/Cerv Today Z20.2 - Contact with and (suspected) exposure to infections with a predominantly sexual mode of transmission Bacterial Vaginosis Panel Today Z20.2 - Contact with and (suspected) exposure to infections with a predominantly sexual mode of transmission Coding Level of Care Code Est Pt Prev Care 40-64y(11805) Diagnoses Potential exposure to STD Z20.2 Encounter for well woman exam with routine gynecological exam Z01.419
[2024-10-13 10:27] VITALS: BP 106/70; BMI 31.7
--- OUTSIDE RECORDS SUMMARY | 2024-10-13 10:48 | XMS_ITS | Encounter Summary ---
Author Organization [employer] Address [address] [facility] [address] [place] [address] Care Team Providers Care Dope Weigh Operator Name Role Phone Cuate Wiggins Primary Care Provider Unavail able Encounter Details Date Type Department Care Team (Latest Contact Info) Description 07/17/2018 Abstract [facility] CONVERSIONS Dental, Provider, DDS Social History [...] on filedocumented in this encounter Care Teams Dope Weigh Operator Relationship Specialty Start Date End Date Cuate Wiggins AGNP PCP - General Family Medicine 01/14/22 12/22/22 documented as of this encounter
== END 2024-10-13 11:01 | disposition home or self-care (01) ==
LOC: HO.HWS 10:15
PROVIDERS: PCP Internal Medicine; Visit Provider Advanced Practice Midwife
DX: Z01.419 Encounter for gynecological examination (general) (routine) without abnormal findings (principal); Z20.2 Contact with and (suspected) exposure to infections with a predominantly sexual mode of transmission
CPT/HCPCS: 99396; 99459

== ENCOUNTER 2024-10-13 10:15 | Outpatient (REF) | payer OTHER, SELFPAY ==
[2024-10-13 13:03] LABS: Syphilis Screen Nonreactive (Nonreactive)
[2024-10-13 13:13] LABS: HBc Num1 0.06 S/CO (0.00-0.79); HIV Num 1 0.06 S/CO (0.00-0.99); ~HepC Num1 5.12 S/CO (0.00-0.79); ~Hepatitis C Antibody Reactive (Nonreactive)
[2024-10-13 21:03] LABS: Bacterial Vaginosis PCR NEGATIVE (Negative); Candida Group PCR DETECTED (Not Detect); Candida glab krusei PCR NOT DETECTED (Not Detect); Trichomonas vaginalis PCR NOT DETECTED (Not Detect)
[2024-10-13 22:20] LABS: CT PCR NOT DETECTED (Not Detect.); NG PCR NOT DETECTED (Not Detect.)
[2024-10-18 17:53] LABS: HCV Log PCR <1.18 NOT DETECTED Log IU/mL (NOT DETECTED); HepC Viral Load <15 NOT DETECTED IU/mL (NOT DETECTED)
== END 2024-10-13 10:16 | disposition home or self-care (01) ==
LOC: HO.LAB 10:15
PROVIDERS: PCP Internal Medicine; Visit Provider Advanced Practice Midwife
DX: Z01.419 Encounter for gynecological examination (general) (routine) without abnormal findings (principal); Z20.2 Contact with and (suspected) exposure to infections with a predominantly sexual mode of transmission
CPT/HCPCS: 36415; 81515; 86704; 86780; 86803; 87389; 87491; 87522; 87591; 99396

== ENCOUNTER 2024-11-04 09:05 | Outpatient (REF) | payer OTHER, SELFPAY ==
--- OUTSIDE RECORDS SUMMARY | 2024-11-04 09:32 | XMS_ITS | Encounter Summary ---
Author Organization [employer] Address [address] [facility] [address] [place] [address] Care Team Providers Care Instrument Repairer Helper Name Role Phone Cuate Wiggins Primary Care Provider Unavail able Encounter Details Date Type Department Care Team (Latest Contact Info) Description 07/17/2018 Abstract [facility] CONVERSIONS Dental, Provider, DDS Social History [...] on filedocumented in this encounter Care Teams Instrument Repairer Helper Relationship Specialty Start Date End Date Cuate Wiggins AGNP PCP - General Family Medicine 01/14/22 12/22/22 documented as of this encounter
[2024-11-04 10:16] LABS: Parathyroid Hormone Intact 68.5 pg/mL (8.7-77.1)
[2024-11-04 10:23] LABS: Alanine Aminotransferase 31 U/L (0-31); Albumin Level 4.6 g/dL (3.5-5.0); Alkaline Phosphatase 72 U/L (39-117); Anion Gap 11 (12-20); Aspartate Amino Transferase 30 U/L (5-31); Blood Urea Nitrogen 15 mg/dL (9-16); Calcium 9.5 mg/dL (8.4-10.2); Carbon Dioxide 28 mmol/L (22-29); Chloride 106 mmol/L (96-108); Cholesterol 181 mg/dL (<200); Estimated Glomerular Filt Rate > 60; HDL Cholesterol 56 mg/dL (>40); Potassium 4.1 mmol/L (3.3-5.1); Sodium 141 mmol/L (135-145); Total Protein 7.6 g/dL (6.5-8.0); Triglycerides 163 mg/dL (<150)
[2024-11-05 15:28] LABS: Calcium, Ionized 5.3 mg/dL (4.7-5.5)
== END 2024-11-04 09:06 | disposition home or self-care (01) ==
LOC: HO.LAB 09:05
PROVIDERS: PCP Internal Medicine; Visit Provider Internal Medicine
DX: R73.02 Impaired glucose tolerance (oral) (principal); E55.9 Vitamin D deficiency, unspecified; E21.3 Hyperparathyroidism, unspecified; E78.5 Hyperlipidemia, unspecified
CPT/HCPCS: 36415; 80053; 80061; 82306; 82330; 83970; 84100

== ENCOUNTER 2024-11-29 09:06 | Outpatient (AMB) | payer OTHER, SELFPAY ==
--- NOTE | 2024-11-29 09:12 | A.OFFPC_ITS ---
Vital Signs 11/29/24 09:13 Height 5 ft 1 in Weight 168 lb 4 oz BMI 31.8 BP 110/82 Blood Pressure Location Lt brachial Position Sitting Pulse 76 Pulse Source Pulse Oximeter Pulse Oximetry (%) 97 Oxygen Delivery Method Room Air Intake Visit Reasons: bp Creative Project Manager Required: No Accompanied by: Self / Same As Patient Allergies No Known Allergies Allergy (Verified 11/29/24 09:24) Medication List - Last Reconciled 11/29/24 by Yasmin Martin MD albuterol sulfate 0.63 mg (3 mL) inhalation Q4-6H PRN 30 days albuterol sulfate 90 mcg/actuation (Ventolin HFA) 2 puffs inhalation Q4-6H PRN aspirin 81 mg PO DAILY 90 days atorvastatin 40 mg PO BEDTIME 90 days [BP monitor As directed] calcium citrate 400 mg (2 x 200 mg (950 mg)) PO BID 30 days cholecalciferol (vitamin D3) (Vitamin D3) 25 mcg PO DAILY cyclobenzaprine 5 mg PO TID PRN 7 days denosumab (Prolia) 60 mg subcut [id number] fluticasone propionate 50 mcg/actuation 2 sprays intranasal DAILY lisinopril-hydrochlorothiazide 10-12.5 mg 1 tab PO DAILY 90 days loratadine 10 mg PO DAILY PRN 90 days melatonin 10 mg PO BEDTIME PRN 90 days meloxicam 15 mg PO DAILY 90 days sumatriptan succinate 50 mg PO NEEDED PRN 30 days Tobacco use date assessed: 11/29/24 Dental Screening Dental Screen Date: 11/29/24 Did you have a dental visit in the last 12 months?: No Did you have a dental problem in the last 6 months where you did not have access to dental care?: No Was dental information given to patient?: No HPI HPI Comments History of Present Illness Details The patient is a 64-year-old female presenting with hypertension and osteoporosis management. Her blood pressure is well-controlled, and she is under the care of an licensed investment sales assistant for osteoporosis, which was diagnosed last year with a bone density scan showing severe osteoporosis. She also has bipolar disorder that has been stable. She transitioned from Prolia to alendronate in her last visit, and her secondary workup for osteoporosis was negative. She reports asthma symptoms, including wheezing and fatigue, and has experienced headaches and allergic symptoms recently. Her medication regimen includes atorvastatin for hyperlipidemia, calcium and vitamin D supplements, and melatonin for insomnia. She also takes loratadine for allergies, meloxicam for pain, and sumatriptan for migraines. [facility] Medical History Encephalopathy Migraine Delirium Hospital discharge follow-up UTI (urinary tract infection) Acute confusion Osteoporosis Mild asthma Family history of thyroid disease Left wrist pain Hypovitaminosis D Dyslipidemia Essential hypertension Surgical History S/P craniotomy Hx of bilateral cataract extraction Meningioma History of removal of cyst History of carpal tunnel release History of tubal ligation Family History Father Essential hypertension Mother Essential hypertension Maternal Aunt Breast cancer Social History Household Members: Children Housing: Apartment Are you a primary managed care manager to a significant other at home: No Do you presently have visiting nurse or other home services: No Alcohol intake: never Patient Tobacco Use Status: Never used Tobacco e-Cigarette/Vaping Use: Never Used Second Hand Smoke Exposure: Yes service: No Current occupational status: unemployed Sexual orientation: Straight/Heterosexual Cognitive needs: No Hearing needs: No Vision needs: No Female Reproductive History Menstrual Age of Menarche: 14 Questionnaire Thrive Questionnaire Date Thrive assessed: 11/29/24 AMADO-7 AMB Questionnaire AMADO-7 Date AMADO - 7 assessed: 11/29/24 Source: Developed by Drs. Isidro Cruz, Shannan Benitez, Ryan Aiken and colleagues, with an educational ahmet from [employer]. Review of Systems Const All systems reviewed & are unremarkable except as noted in HPI and below Card Denies chest pain at rest, Denies chest pain with activity, Denies edema, Denies irregular heart rhythm, Denies claudication, Denies dyspnea, Denies dyspnea on exertion, Denies orthopnea, Denies paroxysmal nocturnal dyspnea and Denies slow heart rate Resp Denies cough, Denies dyspnea and Denies dyspnea on exertion GI Denies abdominal pain, Denies change in bowel habits, Denies excessive flatus, Denies nausea and Denies vomiting Physical exam (Primary Care) Vital Signs: Last Vital Signs Pulse 76 08/18/25 09:13 BP 110/82 11/29/24 09:13 Pulse Ox 97 11/29/24 09:13 Oxygen Delivery Method Room Air 11/29/24 09:13 BMI result Body Mass Index 31.8 BMI Assessment/Plan discussion: High BMI High, discussed plan: lifestyle, weight reduction, dietary and physical activity Tobacco/Smoking Status: Tobacco use Status Tobacco use date assessed 11/29/24 11/29/24 09:19 Patient Tobacco Use Status Never used Tobacco 11/29/24 09:19 e-Cigarette/Vaping Use Never Used 11/29/24 09:19 Thrive Assessment: Date of Thrive Assessment Date Thrive assessed 11/29/24 11/29/24 09:19 Resp Effort & Inspection: normal respiratory effort Auscultation: clear to auscultation bilaterally Cardio Jugular venous distension: no JVD Rate: regular rate Rhythm: regular rhythm Heart sounds: S1 normal heart sound present and S2 normal heart sound present Extrem General: Yes full ROM Coding Level of Care Code Est Pt Level 4 (02638) Complex EM visit Add On G2211 Diagnoses Essential hypertension I10 Dyslipidemia E78.5 Bipolar disorder, in full remission, most recent episode manic F31.74 Active/Remission status: in full remission Most recent bipolar episode type: manic Age-related osteoporosis without current pathological fracture M81.0 Osteoporosis type: age-related Presence of current pathological fracture: without current pathological fracture Psychophysiological insomnia F51.04 Insomnia type: psychophysiologic Mild persistent asthma without complication J45.30 Asthma persistence: persistent Asthma complication type: uncomplicated Time Spent (min) 23 Assessment & Plan Assessment & Plan (1) Essential hypertension: Code(s): I10 - Essential (primary) hypertension Category: Medical (2) Dyslipidemia: Code(s): E78.5 - Hyperlipidemia, unspecified Category: Medical (3) Bipolar disorder: Code(s): F31.9 - Bipolar disorder, unspecified Category: Medical Qualifiers: Active/Remission status: in full remission Most recent bipolar episode type: manic Qualified Code(s): F31.74 - Bipolar disorder, in full remission, most recent episode manic (4) Osteoporosis: Code(s): M81.0 - Age-related osteoporosis without current pathological fracture Category: Medical Qualifiers: Osteoporosis type: age-related Presence of current pathological fracture: without current pathological fracture Qualified Code(s): M81.0 - Age- related osteoporosis without current pathological fracture (5) Insomnia: Code(s): G47.00 - Insomnia, unspecified Category: Medical Qualifiers: Insomnia type: psychophysiologic Qualified Code(s): F51.04 - Psychophysiologic insomnia (6) Mild asthma: Code(s): J45.909 - Unspecified asthma, uncomplicated Category: Medical Qualifiers: Asthma persistence: persistent Asthma complication type: uncomplicated Qualified Code(s): J45.30 - Mild persistent asthma, uncomplicated Plan The patient will continue her current antihypertensive regimen as her blood pressure is well-controlled. For osteoporosis, she has transitioned to alendronate from Prolia, and will continue to follow up with her licensed investment sales assistant. Her asthma symptoms will be managed with an inhaler, and loratadine will be continued for allergic symptoms. She will maintain her current regimen of atorvastatin for hyperlipidemia and melatonin for insomnia. Patient was informed and verbally consented to the use of an ambient scribe for clinic note documentation during this visit. Medications: Refilled albuterol sulfate 90 mcg/actuation (Ventolin HFA) 2 puffs inhalation Q4-6H PRN 18 grams 4RF shortness of breath or wheezing J45.909 - Unspecified asthma, uncomplicated melatonin 10 mg PO BEDTIME PRN 90 tabs 1RF sleep 90 days cholecalciferol (vitamin D3) (Vitamin D3) 25 mcg PO DAILY 90 caps 3RF
[2024-11-29 09:13] VITALS: BP 110/82; PULSE 76; O2SAT 97; BMI 31.8
--- OUTSIDE RECORDS SUMMARY | 2024-11-29 09:36 | XMS_ITS | Encounter Summary ---
Author Organization [employer] Address [address] [place] [address] Care Team Providers Care Recoverer Name Role Phone Cuate Wiggins Primary Care Provider Unavail able Encounter Details Date Type Department Care Team (Latest Contact Info) Description 07/17/[address] [facility] CONVERSIONS Dental, Provider, DDS Social History [...] on filedocumented in this encounter Care Teams Recoverer Relationship Specialty Start Date End Date Cuate Wiggins AGNP PCP - General Family Medicine 01/14/22 12/22/22 documented as of this encounter
== END 2024-11-29 09:34 | disposition home or self-care (01) ==
LOC: HO.HMCH 09:07
PROVIDERS: PCP Internal Medicine; Visit Provider Internal Medicine
DX: I10 Essential (primary) hypertension (principal); E78.5 Hyperlipidemia, unspecified; F31.74 Bipolar disorder, in full remission, most recent episode manic; M81.0 Age-related osteoporosis without current pathological fracture; F51.04 Psychophysiologic insomnia; J45.30 Mild persistent asthma, uncomplicated

== ENCOUNTER → 2024-11-29 09:06 | Outpatient (BNVA) | payer OTHER, SELFPAY | PROVIDERS: PCP Internal Medicine; Visit Provider Internal Medicine | DX: I10 Essential (primary) hypertension (principal); M81.0 Age-related osteoporosis without current pathological fracture; E03.9 Hypothyroidism, unspecified; E78.5 Hyperlipidemia, unspecified; F31.74 Bipolar disorder, in full remission, most recent episode manic; F51.04 Psychophysiologic insomnia; J45.30 Mild persistent asthma, uncomplicated; Z79.899 Other long term (current) drug therapy | CPT/HCPCS: 99212 ==

== ENCOUNTER 2025-01-06 10:22 | Outpatient (AMB) | payer OTHER, SELFPAY ==
--- NOTE | 2025-01-06 10:42 | MHC.OFFVIS ---
Intake Visit Reasons: 2 year FU- R/s from 12/16/24 Allergies No Known Allergies Allergy (Verified 11/29/24 09:24) HPI Comments Details: 64 y/o woman who had a post fossa meningioma resection in [facility] in 2001, and migraine. She was having headaches but not that frequent or severe. Sumatriptan was helping. no new issues. [facility] Medical History (Updated 01/06/25 @ 10:48 by Benji Warren MD) Encephalopathy Migraine Delirium Hospital discharge follow-up UTI (urinary tract infection) Acute confusion Osteoporosis Mild asthma Family history of thyroid disease Left wrist pain Hypovitaminosis D Dyslipidemia Essential hypertension Surgical History (Updated 01/06/25 @ 10:48 by Benji Warren MD) S/P craniotomy Hx of bilateral cataract extraction Meningioma History of removal of cyst History of carpal tunnel release History of tubal ligation Family History Father Essential hypertension Mother Essential hypertension Maternal Aunt Breast cancer Social History Household Members: Children Housing: Apartment Are you a primary laboratory animal care veterinarian to a significant other at home: No Do you presently have visiting nurse or other home services: No Alcohol intake: never Patient Tobacco Use Status: Never used Tobacco e-Cigarette/Vaping Use: Never Used Second Hand Smoke Exposure: Yes service: No Current occupational status: unemployed Sexual orientation: Straight/Heterosexual Cognitive needs: No Hearing needs: No Vision needs: No Female Reproductive History Menstrual Age of Menarche: 14 Review of Systems Const Details: No difficulty walking or controlling bladder. Assessment & Plan Assessment & Plan (1) Migraine: Code(s): G43.909 - Migraine, unspecified, not intractable, without status migrainosus Category: Medical Qualifiers: Migraine type: migraine (< 15 days per month) without aura Status migrainosus presence: without status migrainosus Intractability: not intractable Qualified Code(s): G43.009 - Migraine without aura, not intractable, without status migrainosus (2) Meningioma: Comment: CT brain WO at [facility] in Jul 2022: s/p craniotomy, post fossa hyperdensity, meningioma MRI brain WO at [place] in August 2022: no change other than minimal MVDMRI brain WWO at [facility] in Apr 2018: no sig change from 2013 (reported) MRI brain WWO at [facility] in 2011 and 2012: s/p craniotomy, midline cerebellar encephalomlacia, possible residual meningioma under straight sinus Meningioma resection in 2001 in [facility], Enhancing left sided mass along inferior margin of the midline of falx adjascent to the straight sinus. Code(s): D32.9 - Benign neoplasm of meninges, unspecified Category: Surgical Plan Impression: a: S/P post fossa craniotomy, probably for a meningioma resection with stable exam b: Migraine Rec: Sumatriptan 50mg one a day as needed Medications: Refilled sumatriptan succinate may repeat once in 2 hours if needed 50 mg PO NEEDED PRN 9 tabs 2RF Migraine Headache 30 days Coding Level of Care Code Est Pt Level 4 (04307) Diagnoses Migraine without aura and without status migrainosus, not intractable G43.009 Migraine type: migraine (< 15 days per month) without aura Status migrainosus presence: without status migrainosus Intractability: not intractable Meningioma D32.9
== END 2025-01-06 10:50 | disposition home or self-care (01) ==
LOC: HO.HSM 10:22
PROVIDERS: PCP Internal Medicine; Visit Provider Psychiatry & Neurology Neurology
DX: G43.009 Migraine without aura, not intractable, without status migrainosus (principal); D32.9 Benign neoplasm of meninges, unspecified
CPT/HCPCS: 99214

== ENCOUNTER → 2025-01-06 10:22 | Outpatient (BNVA) | payer OTHER, SELFPAY | PROVIDERS: PCP Internal Medicine; Visit Provider Psychiatry & Neurology Neurology | DX: G43.009 Migraine without aura, not intractable, without status migrainosus (principal); D32.9 Benign neoplasm of meninges, unspecified | CPT/HCPCS: 99212 ==

== ENCOUNTER 2025-02-14 13:10 | Outpatient (REF) | payer OTHER, SELFPAY ==
[2025-02-22 13:29] LABS: NTXCreaRU 31 mg/dL (20-275)
== END 2025-02-14 13:11 | disposition home or self-care (01) ==
LOC: HO.LAB 13:10
PROVIDERS: PCP Internal Medicine; Visit Provider Internal Medicine Endocrinology, Diabetes & Metabolism
DX: M81.0 Age-related osteoporosis without current pathological fracture (principal)
CPT/HCPCS: 82523

== ENCOUNTER 2025-03-21 16:04 | Outpatient (AMB) | payer OTHER, SELFPAY ==
[2025-03-21 16:21] VITALS: BP 114/74; PULSE 90; O2SAT 98; BMI 32.5
--- NOTE | 2025-03-21 16:21 | A.OFFVIS_ITS ---
Vital Signs 03/21/25 16:21 Height 5 ft 0.59 in Weight 169 lb 12.095 oz BMI 32.5 BP 114/74 Blood Pressure Location Lt brachial Position Sitting Pulse 90 Pulse Source Pulse Oximeter Pulse Oximetry (%) 98 Oxygen Delivery Method Room Air Intake Visit Reasons: Osteoporosis Intake Note: Patient present today for Osteoporosis follow up. Asphalt Surface Heater Operator Required: Yes Asphalt Surface Heater Operator Language: Automotive Sales Professional Services: Asphalt Surface Heater Operator Present Asphalt Surface Heater Operator Name: Pooja [id number] [id number] Information Interpreted: non-clinical & clinical Accompanied by: Grandchildren Allergies No Known Allergies Allergy (Verified 03/21/25 16:22) HPI Comments Details: 63 yo female today for fup visit, for osteoporosis . She is here today for follow-up osteoporosis , Her last Prolia shot was 7 mos ago. in Nov Fx last wrist from fall 2017. 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 Denies prior fractures, GERD, negative FH of fractures or osteoporosis, nephrolithiasis, steroids used, smoker, was on anti seizures medications for 4 months 2001, bone deformities. Bisphosphonates use: for 2 years, [id number]. started on September 2015 stopped 01/2016. No problems with alendronate Calcium intake: 500 mg of citrate bid. Vitamin D: 2000 units daily. DEXA 10/12/2019 AP SPINE L1-L4 Current: BMD 0.939 g/cm2, Z-score -1.3, T-score -2.0, osteopenia, 6.9% increase from previous, 5.7% increase from baseline (<5% change is not significant). Prior: BMD 0.878 g/cm2. Baseline: BMD 0.888 g/cm2. LEFT FEMUR, NECK: Current: BMD 0.902 g/cm2, Z-score -0.1, T-score -1.0, normal. Prior: BMD 0.810 g/cm2. Baseline: BMD 0.851 g/cm2. LEFT FEMUR, TOTAL: Current: BMD 1.042 g/cm2, Z-score 0.8, T-score 0.3, normal, 16.3% increase from previous, 18.9% increase from baseline (<5% change is not significant). Prior: BMD 0.896 g/cm2. Baseline: BMD 0.876 g/cm2. Laboratory Tests 05/25/20 05/25/20 06/14/20 07:50 07:50 08:30 Creatinine 0.75 Estimated GFR > 60 Calcium 9.4 Alkaline Phosphatase 55 Albumin 4.2 N-Telopeptide X-linked 25-OH Vitamin D Total 42.6 25-Hydroxy Vitamin D2 <4 25-Hydroxy Vitamin D3 41 TSH 1.56 Free T4 1.01 06/14/20 Unknown Creatinine Estimated GFR Calcium Alkaline Phosphatase Albumin N-Telopeptide X-linked 19 25-OH Vitamin D Total 25-Hydroxy Vitamin D2 25-Hydroxy Vitamin D3 TSH Free T4 Laboratory Tests 10/03/18 10/03/18 10/03/18 09:10 09:10 Unknown Creatinine Est GFR (Non-Af Amer) Calcium Alkaline Phosphatase Albumin N-Telopeptide X-linked 15 25-OH Vitamin D Total 32.7 Free T4 0.98 TSH 3rd Generation 1.00 12/01/19 11:20 Creatinine 0.84 Est GFR (Non-Af Amer) > 60 Calcium 9.9 Alkaline Phosphatase 45 Albumin 4.8 N-Telopeptide X-linked 25-OH Vitamin D Total Free T4 TSH 3rd Generation Currently off alendronate . Taking calcium and vitamin D. Took a course of Prolia in the past . No fracture since last visit. Recent DEXA stable and urine NTX is suppressed [facility] Medical History (Updated 01/06/25 @ 10:48 by Benji Warren MD) Encephalopathy Migraine Delirium Hospital discharge follow-up UTI (urinary tract infection) Acute confusion Osteoporosis Mild asthma Family history of thyroid disease Left wrist pain Hypovitaminosis D Dyslipidemia Essential hypertension Surgical History (Updated 01/06/25 @ 10:48 by Benji Warren MD) S/P craniotomy Hx of bilateral cataract extraction Meningioma History of removal of cyst History of carpal tunnel release History of tubal ligation Family History Father Essential hypertension Mother Essential hypertension Maternal Aunt Breast cancer Social History Household Members: Children Housing: Apartment Are you a primary customer care coordinator to a significant other at home: No Do you presently have visiting nurse or other home services: No Alcohol intake: never Patient Tobacco Use Status: Never used Tobacco e-Cigarette/Vaping Use: Never Used Second Hand Smoke Exposure: Yes service: No Current occupational status: unemployed Sexual orientation: Straight/Heterosexual Cognitive needs: No Hearing needs: No Vision needs: No Female Reproductive History Menstrual Age of Menarche: 14 Physical Exam Vital Signs: BMI result Body Mass Index 32.5 Assessment & Plan Assessment & Plan (1) Osteoporosis: Code(s): M81.0 - Age-related osteoporosis without current pathological fracture Category: Medical Qualifiers: Osteoporosis type: age-related Presence of current pathological fracture: without current pathological fracture Qualified Code(s): M81.0 - Age- related osteoporosis without current pathological fracture Plan: This is a 65-year-old [place] female with a history of osteoporosis currently off alendronate 70 mg q.week after being on Prolia for with marked improvement in bone density into the low bone mass range. Secondary workup has been negative . Urine NTX is suppressed Plan is to continue off the alendronate and on calcium and vitamin-D supplementation. Will have patient follow up in about 8-9 months' time and repeat a DEXA then Coding Level of Care Code Est Pt Level 3 (24313) Diagnoses Age-related osteoporosis without current pathological fracture M81.0 Osteoporosis type: age-related Presence of current pathological fracture: without current pathological fracture
--- OUTSIDE RECORDS SUMMARY | 2025-03-22 01:38 | XMS_ITS | Encounter Summary ---
Author Organization [employer] Address [address] [place] [address] Care Team Providers Care Substitute Bus Driver Name Role Phone Cuate Wiggins Primary Care Provider Unavail able Encounter Details Date Type Department Care Team (Latest Contact Info) Description 07/17/2018 Abstract [facility] CONVERSIONS Dental, Provider, DDS Social History Tobacco [...] on filedocumented in this encounter Care Teams Substitute Bus Driver Relationship Specialty Start Date End Date Cuate Wiggins AGNP PCP - General Family Medicine 01/14/22 12/22/22 documented as of this encounter
--- OUTSIDE RECORDS SUMMARY | 2025-03-22 01:38 | XMS_ITS | Clinical Summary ---
Author Organization [employer] Address [address] [place] [address] [address] [place] [address] Care Team Providers Care Burning Machine Operator Name Role Phone Unavailable Primary Care Provider Unavailabl e Immunizations Immunization Administration Dates Next Due Hep B, adult [...] 1962 FIT 1962 FOBT 1962 Sigmoidoscopy 1962 Disability Screening 1962 Alcohol/Substance Use Screening 1974 Tobacco Screening 1974 Pap Smear 1983 Cervical Cancer Screening 01/24/1992 HPV/Cotest 01/24/1992 Pneumococcal Vaccine: 50+ Years (2 of 2 - PCV20 or PCV21) 04/17/2016 04/17/2015 DTaP/Tdap/Td Vaccines (2 - Td or Tdap) 05/21/2017 05/21/2007 Mammogram 03/19/2021 03/19/2019, 03/09/2018 COVID-19 Vaccine ( season) 2024 03/13/2021, 07/12/2020, 06/14/2020 Influenza Vaccine (#1) 2024 , 03/04/2022, 02/13/2021, Additional history exists RSV Patients and Patients Aged 60 years or older (1 - 1-dose 75+ series) 2037 Hepatitis B Vaccines Completed 01/15/2008, 08/25/2007, 07/23/2007 Zoster Vaccines Completed 10/16/2021, 08/13/2021 HIB Vaccines [...] patient's age to complete this topic Meningococcal B Vaccine Aged Out No l onger eligible based on patient's age to complete [...]
== END 2025-03-21 16:29 | disposition home or self-care (01) ==
LOC: HO.ENCR 16:04
PROVIDERS: PCP Internal Medicine; Visit Provider Internal Medicine Endocrinology, Diabetes & Metabolism
DX: M81.0 Age-related osteoporosis without current pathological fracture (principal)
CPT/HCPCS: 99213

== ENCOUNTER → 2025-03-21 16:04 | Outpatient (BNVA) | payer OTHER, SELFPAY | PROVIDERS: PCP Internal Medicine; Visit Provider Internal Medicine Endocrinology, Diabetes & Metabolism | DX: M81.0 Age-related osteoporosis without current pathological fracture (principal); Z79.899 Other long term (current) drug therapy | CPT/HCPCS: 99212 ==